=== PATIENT | female | born 1970 | race Caucasian/White ===

== ENCOUNTER → 2018-08-13 13:29 | Outpatient (CLI) | payer OTHER, SELFPAY ==
[2018-08-17 08:43] LABS: HPV Reflexed? NOT INDICATED
== END ==
PROVIDERS: Visit Provider Obstetrics & Gynecology
DX: Z12.4 Encounter for screening for malignant neoplasm of cervix (principal)
CPT/HCPCS: 87624; 88175; G0145

== ENCOUNTER → 2018-10-01 07:17 | Outpatient (CLI) | payer OTHER, SELFPAY ==
--- NOTE | 2018-10-01 07:23 | BI_ITS ---
MAMMOGRAPHY - BILATERAL SCREENING REASON FOR EXAM: Female, 48 years old. Routine annual screening examination. PERTINENT HISTORY: Mother with breast cancer. TECHNIQUE: Digital bilateral breast franko (3D mammographic acquisition) in the CC and MLO projections. 2-D mediolateral oblique (MLO) and craniocaudad (CC) views of both breasts were obtained. CAD: Full Field Digital Mammography with Computer Added Detection was performed. COMPARISON: Comparison is made with prior mammogram dated March 24, 2015 and June 23, 2013. FINDINGS: Breast Composition: The breasts are heterogeneously dense, which may obscure small masses. There is a 1.6 cm x 1.2 cm well-defined nodular density in the upper deep lateral portion right breast. This has increased in size as compared to prior study. Correlation with ultrasound is recommended. No other significant abnormalities are identified. BI/SCREENING MAMM (CAD), BILAT IMPRESSION: Increased size of the nodular density in the upper outer quadrant of the right breast as described. Correlation with ultrasound is recommended. ASSESSMENT CATEGORY: BIRADS Category 0: Incomplete. Need additional imaging evaluation. A letter regarding these results will be sent to the patient by the facility within 30 days. Approximately 10% of breast cancers are not detected by mammography. A normal mammogram should not delay biopsy of a clinically suspicious abnormality. [id number] Electronically Signed: Ted Membreno MD at 10:32 EST , Service support ,
== END ==
PROVIDERS: Family Provider Nurse Practitioner Family; PCP Nurse Practitioner Family; Visit Provider Obstetrics & Gynecology
DX: Z12.31 Encounter for screening mammogram for malignant neoplasm of breast (principal)
CPT/HCPCS: 77063; 77067

== ENCOUNTER → 2018-10-02 09:55 | Outpatient (CLI) | payer OTHER, SELFPAY ==
--- NOTE | 2018-10-02 09:58 | US_ITS ---
STUDY: ULTRASOUND BREAST - RIGHT REASON FOR EXAM: Female, 48 years old. Abnormal screening mammogram. TECHNIQUE: Axial and longitudinal images of the RIGHT breast were performed with a high resolution ultrasound transducer. COMPARISON: Comparison is made with prior mammogram dated October 01, 2018 and prior ultrasound the right breast dated March 30, 2015. FINDINGS: RIGHT Breast: There is a 1.5 cm x 1.5 cm x 1.1 cm cyst at the 11:00 position of the breast at 3 cm from the nipple. US/Breast Limited Unilateral IMPRESSION: The mammographic abnormality corresponds to a 1.5 cm x 1.5 cm x 1.1 cm cyst. ASSESSMENT CATEGORY: BIRADS Category 2: Benign. A letter regarding these results will be sent to the patient by the facility within 30 days. Electronically Signed: Ted Membreno MD at 12:23 EST , Service support ,
== END ==
PROVIDERS: Family Provider Nurse Practitioner Family; PCP Nurse Practitioner Family; Visit Provider Obstetrics & Gynecology
DX: R92.8 Other abnormal and inconclusive findings on diagnostic imaging of breast (principal)
CPT/HCPCS: 76642

== ENCOUNTER → 2022-01-16 | Outpatient (CLI) | payer OTHER, SELFPAY ==
[2022-01-16 15:30] LABS: Estradiol 81.5 pg/mL; Follicle Stimulating Hormone 7.4 mIU/mL; Luteinizing Hormone 2.5 mIU/mL; T4 Free Direct 1.01 ng/dL (0.76-1.46); Thyroid Stim Hormone (TSH) 3.56 uIU/mL (0.358-3.74)
[2022-01-22 16:48] LABS: HPV APTIMA, High Risk Negative (Negative)
== END | disposition home or self-care (01) ==
LOC: WOBLAB 13:35
PROVIDERS: PCP Nurse Practitioner Family; Visit Provider Obstetrics & Gynecology
DX: Z12.4 Encounter for screening for malignant neoplasm of cervix (principal); N93.9 Abnormal uterine and vaginal bleeding, unspecified
CPT/HCPCS: 36415; 82670; 83001; 83002; 84439; 84443; 87624; 88175; G0145

== ENCOUNTER → 2022-02-02 | Outpatient (CLI) | payer OTHER, SELFPAY ==
--- NOTE | 2022-02-02 07:19 | BI_ITS ---
MAMMOGRAPHY - BILATERAL SCREENING REASON FOR EXAM: Female, 51 years old. Routine annual screening examination. PERTINENT HISTORY: Mother with breast cancer. TECHNIQUE: Digital bilateral breast melissa (3D mammographic acquisition) in the CC and MLO projections. 2-D mediolateral oblique (MLO) and craniocaudad (CC) views of both breasts were obtained. CAD: Full Field Digital Mammography with Computer Added Detection was performed. COMPARISON: Screening mammogram from 10/01/2018, 03/24/2015, 06/23/2013, 01/28/2012. Right breast diagnostic ultrasound from 10/02/2018, 03/30/2015. FINDINGS: Breast Composition: The breasts are heterogeneously dense, which may obscure small masses. There are no dominant masses or suspicious calcifications. The previously seen right upper lateral breast mass characterized as a cyst on the diagnostic ultrasound from 10/02/2018 has resolved. No other significant abnormalities are identified. BI/SCRN MAMM (CAD)W/MELISSA BILAT IMPRESSION: Negative screening mammogram. Yearly followup mammogram recommended. (A) ASSESSMENT CATEGORY: BIRADS Category 1: Negative. A letter regarding these results will be sent to the patient by the facility within 30 days. Approximately 10% of breast cancers are not detected by mammography. A normal mammogram should not delay biopsy of a clinically suspicious abnormality. [id number] Electronically Signed: Bharat Zaldivar, at 12:35 EDT ,
== END | disposition home or self-care (01) ==
LOC: OPBI 07:17
PROVIDERS: PCP Nurse Practitioner Family; Referring Provider Obstetrics & Gynecology; Visit Provider Obstetrics & Gynecology
DX: Z12.31 Encounter for screening mammogram for malignant neoplasm of breast (principal)
CPT/HCPCS: 77063; 77067

== ENCOUNTER → 2022-02-06 | Outpatient (CLI) | payer OTHER, SELFPAY ==
[2022-02-08 22:07] LABS: Chlamydia By Nucleic Acid AMP Negative (Negative)
[2022-02-08 22:13] LABS: Gonococcus By Nucleic Acid AMP Negative (Negative)
== END | disposition home or self-care (01) ==
LOC: LABSPEC 16:39
PROVIDERS: PCP Nurse Practitioner Family; Visit Provider Obstetrics & Gynecology
DX: Z11.3 Encounter for screening for infections with a predominantly sexual mode of transmission (principal)
CPT/HCPCS: 87491; 87591

== ENCOUNTER → 2023-04-26 | Outpatient (CLI) | payer OTHER, SELFPAY ==
[2023-04-26 10:14] LABS: Hematocrit 40.4 % (37-47); Hemoglobin 13.7 g/dL (12.0-15.0); Mean Corp Hgb Conc 33.9 g/dL (32-36); Mean Corpuscular Hgb 29.7 pg (27.0-32.0); Mean Corpuscular Volume 87.4 fL (81-99); Platelet Count 277 K/mm3 (150-450); RBC Distribution Width CV 12.5 % (11.6-14.6); RBC Distribution Width SD 39.8 fl (35.1-43.9); Red Blood Count 4.62 M/mm3 (4.2-5.4)
[2023-04-26 11:07] LABS: AST(SGOT) 14 U/L (15-37); Alanine Aminotransfer ALT/SGPT 17 U/L (13-56); Alkaline Phosphatase 43 U/L (45-117); Anion Gap 8 (5-15); BUN 17 mg/dL (7-18); BUN/Creat Ratio 24.6 RATIO (10-20); Calcium,Total 8.2 mg/dL (8.5-10.1); Chloride 104 mmol/L (98-107); Creatinine, Serum 0.69 mg/dL (0.55-1.02); EST Glomerular Filtration Rate 94 mL/min (>60); Est Glom Filt Rate - Afr Amer 114 mL/min (>60); Globulin 3.1 g/dL (2.2-4.2); Glucose 86 mg/dL (74-106); Potassium 3.5 mmol/L (3.5-5.1); Protein, Total 6.1 g/dL (6.4-8.2); Sodium Level 136 mmol/L (136-145)
[2023-04-30 08:07] LABS: Endomysial Antibody IgA Negative (Negative); Immunoglobulin A 185 mg/dL (87-352); t-Transglutaminase IgA <2 U/mL (0-3)
== END | disposition home or self-care (01) ==
LOC: LAB 09:28
PROVIDERS: PCP Nurse Practitioner Family; Referring Provider Nurse Practitioner Family; Visit Provider Nurse Practitioner Family
DX: K52.9 Noninfective gastroenteritis and colitis, unspecified (principal); R14.0 Abdominal distension (gaseous)
CPT/HCPCS: 36415; 80053; 82784; 83516; 85027; 86255; 87329; 87493; 87506

== ENCOUNTER 2023-05-03 08:16 | Emergency (ER) | payer OTHER, SELFPAY ==
[2023-05-03 08:17] VITALS: BP 107/65; PULSE 112; RESP 16; TEMP 37.2; O2SAT 98; BMI 21.7
--- NOTE | 2023-05-03 08:54 | ED.VIS.GI ---
HPI HPI - GI History of Present Illness Chief Complaint: Abd Pain Informant: patient Abdominal Pain/Flank Pain Onset: Days (2) Context: Gradual Onset Timing: Continuous Quality: Aching, Cramping and Sharp Location: Diffuse Worsened by: Nothing Relieved by: Nothing Nausea/Vomiting/Emesis GI Symptom: Positive for Nausea and Vomiting Quality: Positive for Nonbilious; Negative for Blood streaks, Coffee ground or Hematemesis Diarrhea/Melena/Hematochezia GI Symptom: Positive for Diarrhea and Hematochezia Onset: Yesterday Stool Quality: Positive for Loose and BRB per rectum Associated Symptoms Associated Symptoms: Negative for Dysuria Narrative Narrative: Patient presents with abdominal pain that has been waxing and waning over the past couple weeks but has been relatively constant for the past 2 days. Patient states it has come on gradually. Patient states it has been constant for the past 2 days. Patient describes her pain as cramping, aching, and sharp. Patient states her pain is diffuse across her abdomen. Patient states nothing makes it better and nothing makes it worse. Patient states that she noted some blood in her stools last night. Patient states she has had some mucousy diarrhea prior to that. Patient states she feels some pressure in her rectal area. Patient does admit to some nausea and vomiting. Patient denies any hematemesis or coffee-ground emesis. Patient admits to some mild dysuria. Patient denies any fevers or chills. [facility] Medical History (Updated 05/03/23 @ 12:[address] Jorgito Contreras DO) Melanoma Home Medications ciprofloxacin HCl 500 mg tablet 500 mg PO BID #20 TABLETS 05/03/23 [Rx Last Taken Unknown] metronidazole 500 mg tablet 500 mg PO Q6H #40 tabs 05/03/23 [Rx Last Taken Unknown] Allergy/AdvReac Type Severity Reaction Status Date / Time sulfamethoxazole Allergy Severe Swelling Verified 05/03/23 08:17 [From Bactrim] trimethoprim [From Bactrim] Allergy Severe Swelling Verified 05/03/23 08:17 Surgical History (Updated 05/03/23 @ 08:[address] Jorgito Contreras DO) Hx of section Hx of melanoma excision Social History (Updated 05/03/23 @ 08:[address] Jorgito Contreras DO) Smoking Status: Current every day smoker tobacco type: cigarettes Smoking packs per day: 0.5 Smoking cigarettes per day: 10.0 ROS ROS ED Constitutional Constitutional ED: Denies chills or fever(s) Eyes Eyes: Denies blurry vision or change in vision ENT ENT ED: Denies rhinorrhea or sore throat Cardiovascular Cardiovascular: Denies chest pain or palpitations Respiratory/Chest Respiratory/Chest: Denies cough or dyspnea Gastrointestinal Gastrointestinal: Reports abdominal pain, diarrhea, nausea and vomiting Genitourinary Genitourinary ED: Reports dysuria; Denies hematuria Musculoskeletal Musculoskeletal: Reports back pain; Denies neck pain Integumentary Denies abscess or rash Neurologic Neurologic: Reports headache(s) and weakness Allergic/Immunologic Allergic/Immunologic ED: Denies mouth swelling or urticaria EXAM Physical Exam Const Vital Signs: 05/03/23 08:17 05/03/23 10:40 Temperature 98.9 F Temperature Source Temporal Pulse Rate 112 H 94 Respiratory Rate 16 16 Blood Pressure 107/65 92/68 Blood Pressure Mean 79 76 Pulse Ox 98 98 Oxygen Delivery Method Room Air Room Air Positive well nourished and well developed General Appearance ED: well developed and NAD HEENT Reports moist mucous membranes Neck supple and no JVD Resp normal respiratory effort and clear to auscultation bilaterally Cardio regular rhythm and no murmurs Rate: tachycardic GI non-distended Auscultation: hyperactive bowel sounds Palpation: soft and tender epigastric, LLQ, RLQ, LUQ, RUQ, periumbilical and suprapubic; Negative for guarding or rebound tenderness present Extremity normal to inspection General Extremety ED: Negative for edema or tenderness General Extremity: Negative for edema Neuro oriented x3, CN's II-XII intact bilaterally and no sensory deficits noted Sensorium / Orientation: alert Motor Exam: strength 5/5 throughout Psych mental status grossly normal Skin no rashes or lesions noted MDM MDM MDM Narrative Medical decision making narrative: Differential diagnosis includes bowel obstruction, perforation, hemorrhoids, IBS, gastroenteritis, colon cancer, urinary tract infection, pyelonephritis, and pancreatitis. CBC will be obtained to assess for leukocytosis and anemia. Comprehensive metabolic profile will be obtained to assess for hepatic function, renal function, and electrolyte abnormality. Lipase will be obtained to assess for pancreatitis. CT scan of the abdomen pelvis will be obtained to assess for bowel obstruction, perforation, and mass. Lab Data Attestation: I reviewed the patient's lab results. Lab results narrative: CBC was reviewed. There is a mild leukocytosis of 11.9. The remainder is within normal limits. Comprehensive metabolic profile was reviewed. Potassium was low at 3.0. The remainder was within normal limits. Lipase was reviewed and was normal at 25. Urinalysis was reviewed. There is no evidence of urinary tract infection or hematuria. Urine ketones were 150. Labs: Laboratory Results - last 24 hr 05/03/23 05/03/23 08:34 10:21 WBC 11.9 H RBC 5.00 Hgb 14.6 Hct 42.5 MCV 85.0 MCH 29.2 MCHC 34.4 RDW Std Deviation 39.8 RDW Coeff of Audrey 13.0 Plt Count 377 MPV 9.0 Immature Gran % (Auto) 0.500 Neut % (Auto) 75.8 H Lymph % (Auto) 11.4 L [place] % (Auto) 11.8 H Eos % (Auto) 0.1 Baso % (Auto) 0.4 Absolute Neuts (auto) 9.0 H Absolute Lymphs (auto) 1.36 Nucleated RBC % 0 Sodium 140 Potassium 3.0 L Chloride 108 H Carbon Dioxide 26.0 Anion Gap 6 BUN 11 Creatinine 0.52 L Estim Creat Clear Calc 112.58 Est GFR (MDRD) Af Amer 159 Est GFR (MDRD) Non-Af 131 BUN/Creatinine Ratio 21.2 H Glucose 105 Calcium 8.1 L Total Bilirubin 0.40 AST 13 L ALT 18 Alkaline Phosphatase 53 Total Protein 6.0 L Albumin 2.5 L Globulin 3.5 Albumin/Globulin Ratio 0.7 L Lipase 25 Urine Color Yellow Urine Clarity Clear Urine pH 6.0 Ur Specific [place] 1.015 Urine Protein 15 H Urine Glucose (UA) Normal Urine Ketones 150 A* Urine Occult Blood Negative Urine Nitrite Negative Urine Bilirubin Negative Urine Urobilinogen Normal Ur Leukocyte Esterase 25 H Urine RBC 0 SEEN Urine WBC 0-5 SEEN Ur Squamous Epith Cells 0-5 SEEN Urine Bacteria RARE Urine Mucus 0 SEEN Radiography Diagnostic Testing: Clinical Impression(s) from Imaging Studies Abdomen/Pelvis CT 05/03/23 09:02 IMPRESSION: Findings suggestive of colitis involving the left hemicolon. Minimal amount of free fluid in the right paracolic gutter. Hepatic cysts. Right renal cyst. IUD is seen within the fibroid uterus. Electronically Signed: Ted Membreno MD at 11:19 EDT , CT scan of the abdomen pelvis was obtained. There are findings suggestive of colitis of the transverse and descending colon. There is no evidence of obstruction or perforation. There are no other acute findings. This was interpreted by the radiologist and was also independently reviewed by myself. Treatment and Re-Evaluation :: Patient was given IV fluids, morphine, and Zofran. Patient was given a dose of potassium here. Patient is feeling better on reevaluation. Patient was advised of her findings. Patient was given a dose of Cipro and Flagyl here. Patient was given prescriptions for Cipro and Flagyl. Patient was instructed to follow-up with her primary care physician in 5 to 7 days. Patient was also instructed to follow-up with gastroenterology. Patient understood and was agreeable with the plan. All questions were answered. Discharge Plan Triage Chief Complaint: Abd Pain ED Provider: Jorgito Contreras Dx/Rx/DC Orders Clinical Impression: Colitis, Abdominal pain Instructions: ED Understanding Colitis Prescriptions: New metronidazole [metronidazole] 500 mg tablet 500 mg PO Q6H Qty: 40 0RF ciprofloxacin HCl [ciprofloxacin HCl] 500 mg tablet 500 mg PO BID Qty: 20 0RF Primary Care Provider: Blake Carter NP Referrals: Blake Carter BRUSHER WARP, [facility] WARP-[facility] [Primary Care Provider] - 5-7 Days Activity Restrictions/Additional Instructions: Do not drink any alcohol while taking Flagyl (metronidazole). Disposition Disposition: Home, Self Care
--- NOTE | 2023-05-03 09:02 | CT_ITS ---
STUDY: CT ABDOMEN AND PELVIS WITH CONTRAST REASON FOR EXAM: Female, 52 years old. Abdominal pain. Bloody stool. Abdominal cramps. RADIATION DOSAGE (If Supplied By Facility): CTDIvol = ( 8.18 ) mGy, DLP = ( 481.90 ) mGycm TECHNIQUE: Transaxial images were obtained from the dome of the diaphragm to the symphysis pubis with oral contrast. Oral and amp; IV Gastrografin and amp; 100mL Isovue-300 was administered. Sagittal and coronal images were reconstructed. Individualized dose optimization techniques were used for this CT. COMPARISON: None. FINDINGS: The visualized lung bases are unremarkable. The visualized portions of the heart are within normal limits. Scattered cysts are seen in the right lobe of the liver. The largest cyst measures 1.3 cm x 1.3 cm. Calcified granuloma in the dome of the right lobe of the liver. Normal gallbladder and extrahepatic biliary system. There are multiple benign calcified granulomata of the spleen. Normal pancreas. Normal bilateral adrenal glands. There is a 2.8 cm x 3.1 cm cyst in the upper posterior aspect of the right kidney. Tiny cyst in the midportion of the left kidney. Normal left kidney. Normal visualized stomach. Normal small intestine. Diffuse circumferential wall thickening of the colon extending from the distal portion of the transverse colon down to the rectum. Colitis should be ruled out. Minimal amount of fluid is seen in the right paracolic gutter. The appendix is visualized and appears normal. There is scattered atherosclerotic calcification of the abdominal aorta, without a demonstrated aneurysm. Normal inferior vena cava. Normal retroperitoneum. Normal urinary bladder. IUD is seen within the uterus. Fibroid uterus. Normal abdominal wall. Dextroscoliosis. CT/Abdomen/Pelvis WITH Contrast IMPRESSION: Findings suggestive of colitis involving the left hemicolon. Minimal amount of free fluid in the right paracolic gutter. Hepatic cysts. Right renal cyst. IUD is seen within the fibroid uterus. Electronically Signed: Ted Membreno MD at 11:19 EDT ,
[2023-05-03 09:14] LABS: Absolute Lymphocyte Count 1.36 X10^3/uL (0.83-4.51); Basophil# 0.05 X10^3/uL; Basophil% 0.4 % (0-1); Eosinophil# 0.01 X10^3/uL; Eosinophils% 0.1 % (0-5); Hematocrit 42.5 % (37-47); Hemoglobin 14.6 g/dL (12.0-15.0); Lymphocyte # 1.36 X10^3/ul (0.83-4.51); Lymphocyte % 11.4 % (19-41); Mean Corp Hgb Conc 34.4 g/dL (32-36); Mean Corpuscular Hgb 29.2 pg (27.0-32.0); Monocyte# 1.41 X10^3/uL; Monocyte% 11.8 % (0-10); NRBC Flagged by Analyzer 0 % (0-5); Neutrophil # 9.03 X10^3/uL (2.7-7.7); Neutrophil % 75.8 % (47-70); Platelet Count 377 K/mm3 (150-450); RBC Distribution Width SD 39.8 fl (35.1-43.9); White Blood Count 11.9 K/mm3 (4.4-11.0)
[2023-05-03] MEDS: Ondansetron 4 MG/2 ML Vial IV (09:18)
[2023-05-03] MEDS: 0.9% Normal Saline (1000mL) 1,000 ML 1000 ML IV (09:19)
[2023-05-03] MEDS: Morphine 4 MG/ML Syringe IV (09:19)
[2023-05-03 09:28] LABS: ALB/GLOB Ratio 0.7 RATIO (0.9-2.4); AST(SGOT) 13 U/L (15-37); Alanine Aminotransfer ALT/SGPT 18 U/L (13-56); Albumin, Serum 2.5 g/dL (3.2-5.0); Alkaline Phosphatase 53 U/L (45-117); Anion Gap 6 (5-15); BUN 11 mg/dL (7-18); BUN/Creat Ratio 21.2 RATIO (10-20); Calcium,Total 8.1 mg/dL (8.5-10.1); Chloride 108 mmol/L (98-107); Creatinine, Serum 0.52 mg/dL (0.55-1.02); EST Glomerular Filtration Rate 131 mL/min (>60); Est Glom Filt Rate - Afr Amer 159 mL/min (>60); Estimated Creatinine Clearance 112.58 ml/min; Globulin 3.5 g/dL (2.2-4.2); Glucose 105 mg/dL (74-106); Lipase 25 U/L (13-75); Sodium Level 140 mmol/L (136-145)
[2023-05-03] MEDS: Potassium Chloride Oral Tablet 20 MEQ 40 MEQ PO (09:43)
[2023-05-03 10:28] LABS: Mucous, Urine 0 SEEN /hpf (<or=2+); Red Blood Cells-Urine 0 SEEN /hpf (0-5)
[2023-05-03 10:29] LABS: Color, Urine Yellow (Yellow); Glucose, Dipstick Normal (Normal); Leukocyte Esterase-Dipstick 25 /ul (Negative); Nitrite-Dipstick Negative (Negative); Occult Blood-Urine Negative /ul (Negative); Protein-Dipstick 15 mg/dl (Negative); Specific Gravity, Urine 1.015 (1.002-1.030); Urine Bilirubin Dipstick Negative (Negative); Urine Clarity Clear (Clear); Urine Urobilinogen Normal (Normal)
[2023-05-03 10:30] LABS: Ketone-Dipstick 150 mg/dl (Negative)
[2023-05-03 10:34] LABS: Squamous Epithelial Cells - UA 0-5 SEEN /hpf (5-10); White Blood Cells 0-5 SEEN /hpf (0-5)
[2023-05-03 10:35] LABS: Bacteria RARE /hpf (None Seen)
[2023-05-03 10:40] VITALS: BP 92/68; PULSE 94; RESP 16; O2SAT 98
[2023-05-03] MEDS: Ciprofloxacin 500 MG Tablet PO (12:50)
[2023-05-03] MEDS: metroNIDAZOLE 500 MG Tablet PO (12:50)
[2023-05-03 12:54] VITALS: RESP 18
== END 2023-05-03 12:58 | disposition home or self-care (01) ==
PROVIDERS: Emergency Provider Emergency Medicine; PCP Nurse Practitioner Family; Visit Provider Emergency Medicine
DX: K52.9 Noninfective gastroenteritis and colitis, unspecified (principal); F17.210 Nicotine dependence, cigarettes, uncomplicated; R11.0 Nausea
CPT/HCPCS: 74177; 80053; 81001; 83690; 85025; 96361; 96374; 96375; 99284; J7030; Q9967; A4216; J2405

== ENCOUNTER 2023-05-04 08:13 | Inpatient (IN) | payer OTHER, SELFPAY ==
[2023-05-04 08:14] VITALS: BP 99/76; PULSE 102; RESP 16; TEMP 36.2; O2SAT 99; BMI 21.6
--- NOTE | 2023-05-04 08:28 | EX.ED.DYSGE1 ---
HPI History of Present Illness Chief Complaint: Abd Pain Informant: patient Narrative Narrative: Patient returns secondary to increased and continued abdominal pain with diarrhea. Patient reported has had intermittent symptoms for the past 2 weeks but constant for the past 3 days. She was seen in the emergency room yesterday and diagnosed with colitis of the transverse and descending colon. She was discharged on Cipro and Flagyl. Patient reports that she was feeling well when she left here yesterday with pain control and hydration. She was able to eat a small bowl of white rice last night. She has not taken anything for pain. She had increased pain and increased blood in her stool since discharge. [facility] Medical History (Updated 05/04/23 @ 10:[address] Edna Lares MD) Colitis Melanoma Home Medications ciprofloxacin HCl 500 mg tablet 500 mg PO BID #20 TABLETS 05/03/23 [Rx Last Taken Unknown] metronidazole 500 mg tablet 500 mg PO Q6H #40 tabs 05/03/23 [Rx Last Taken Unknown] Allergy/AdvReac Type Severity Reaction Status Date / Time sulfamethoxazole Allergy Severe Swelling Verified 05/03/23 08:17 [From Bactrim] trimethoprim [From Bactrim] Allergy Severe Swelling Verified 05/03/23 08:17 Surgical History Hx of section Hx of melanoma excision Social History Smoking Status: Current every day smoker tobacco type: cigarettes ROS ROS ED Constitutional Constitutional ED: Reports chills, fever(s) and subjective Eyes Eyes: Denies discharge from eye(s) ENT ENT ED: Denies discharge from eye(s), rhinorrhea or sore throat Cardiovascular Cardiovascular: Denies chest pain or palpitations Respiratory/Chest Respiratory/Chest: Denies cough or dyspnea Gastrointestinal Gastrointestinal: Reports abdominal pain, diarrhea and nausea; Denies vomiting Musculoskeletal Musculoskeletal: Denies back pain or extremity pain Integumentary Denies Abrasions or rash Neurologic Neurologic: Denies headache(s) or weakness Psychiatric Psychiatric: Denies anxiety or depression Allergic/Immunologic Allergic/Immunologic ED: Denies lip swelling or urticaria EXAM Physical Exam Const Vital Signs: 05/04/23 08:14 Temperature 97.2 F L Temperature Source Temporal Pulse Rate 102 H Respiratory Rate 16 Blood Pressure 99/76 Blood Pressure Mean 83 Pulse Ox 99 Oxygen Delivery Method Room Air Positive well nourished and well developed General Appearance ED: well developed HEENT Reports normocephalic and head/scalp atraumatic Eyes PERRL and EOMs intact bilaterally Neck supple Chest Wall inspection of chest normal and palpation of chest normal Resp normal respiratory effort and clear to auscultation bilaterally Cardio regular rate and regular rhythm GI GI Narrative: Diffuse abdominal tenderness palpation. No rebound. Hypoactive bowel sounds. Palpation: soft Extremity normal to inspection Neuro oriented x3 and no sensory deficits noted Sensorium / Orientation: alert Motor Exam: strength 5/5 throughout Psych mental status grossly normal Skin no rashes or lesions noted MDM MDM MDM Narrative Medical decision making narrative: Patient's visit yesterday was reviewed. IV line established and patient given IV fluids. Lab work including lactic acid obtained to evaluate for leukocytosis, electrolyte derangement, lactic acidosis. Patient given fentanyl and Zofran for pain and nausea. History & Record Review Discussion w/independent historian: Patient and Family Additional record(s) reviewed:: Prior ED visit and Prior labs Lab Data Attestation: I reviewed the patient's lab results. Labs: Laboratory Results - last 24 hr 05/04/23 08:30 WBC 7.9 RBC 4.97 Hgb 14.5 Hct 42.7 MCV 85.9 MCH 29.2 MCHC 34.0 RDW Std Deviation 40.3 RDW Coeff of Audrey 13.1 Plt Count 337 MPV 8.4 Immature Gran % (Auto) 1.000 H Neut % (Auto) 66.3 Lymph % (Auto) 16.8 L [place] % (Auto) 14.6 H Eos % (Auto) 0.8 Baso % (Auto) 0.5 Absolute Neuts (auto) 5.2 Absolute Lymphs (auto) 1.33 Nucleated RBC % 0 Sodium 138 Potassium 3.3 L Chloride 106 Carbon Dioxide 26.0 Anion Gap 6 BUN 9 Creatinine 0.59 Estim Creat Clear Calc 99.23 Est GFR (MDRD) Af Amer 138 Est GFR (MDRD) Non-Af 114 BUN/Creatinine Ratio 15.3 Glucose 103 Lactic Acid 1.3 Calcium 8.0 L Total Bilirubin 0.40 Direct Bilirubin 0.12 AST 17 ALT 17 Alkaline Phosphatase 51 Total Protein 5.7 L Albumin 2.4 L Globulin 3.3 Treatment and Re-Evaluation :: CBC was a white count of 7.9 with normal neutrophil count. Yesterday her white count was in the 11 range. Chemistry studies significant only for potassium of 3.3. Yesterday potassium was 3.0. Renal function is normal. LFTs are unremarkable and lactic acid is normal at 1.3. On repeat evaluation patient reports some improvement. Abdomen is soft with continued diffuse tenderness. No rebound noted. states he does not feel the patient can be treated at home given her pain and ongoing symptoms. I spoke with Dr. Smith, on-call for GI. He states that we need to do more stool studies. It does appear that she had enteric pathogens and C. difficile done on April 26 that were negative. Because there is small amount of free fluid noted in the right pericolic gutter on the CT yesterday he states that this indicates a possible small microperforation. In light of this she does need to be on antibiotics. He agrees with continuing Cipro and Flagyl IV. He recommends Bentyl and pain meds for abdominal cramping and pain. I will discuss with hospitalist regarding admission for further hydration. Discharge Plan Triage Chief Complaint: Abd Pain ED Provider: Edna Lares Dx/Rx/DC Orders Clinical Impression: Colitis, Abdominal pain Prescriptions: No Action metronidazole [metronidazole] 500 mg tablet 500 mg PO Q6H Qty: 40 0RF ciprofloxacin HCl [ciprofloxacin HCl] 500 mg tablet 500 mg PO BID Qty: 20 0RF Primary Care Provider: Blake Carter NP Referrals: Blake Carter NP, [employer]ICE MACHINERY OR [employer]MENT INST[employer]ER-[facility] [Primary Care Provider] - Disposition Disposition: Acute Care Hospital [facility]
[2023-05-04 08:35] LABS: Absolute Lymphocyte Count 1.33 X10^3/uL (0.83-4.51); Absolute Neutrophil Count 5.2 X10^3/uL (2.0-7.7); Basophil# 0.04 X10^3/uL; Basophil% 0.5 % (0-1); Eosinophil# 0.06 X10^3/uL; Eosinophils% 0.8 % (0-5); Hematocrit 42.7 % (37-47); Hemoglobin 14.5 g/dL (12.0-15.0); Lymphocyte # 1.33 X10^3/ul (0.83-4.51); Lymphocyte % 16.8 % (19-41); Mean Corpuscular Hgb 29.2 pg (27.0-32.0); Mean Corpuscular Volume 85.9 fL (81-99); Mean Platelet Vol. 8.4 fl (6.2-12.0); Monocyte# 1.15 X10^3/uL; Monocyte% 14.6 % (0-10); NRBC Flagged by Analyzer 0 % (0-5); Neutrophil # 5.24 X10^3/uL (2.7-7.7); Neutrophil % 66.3 % (47-70); Platelet Count 337 K/mm3 (150-450); RBC Distribution Width CV 13.1 % (11.6-14.6); RBC Distribution Width SD 40.3 fl (35.1-43.9); Red Blood Count 4.97 M/mm3 (4.2-5.4); White Blood Count 7.9 K/mm3 (4.4-11.0)
[2023-05-04] MEDS: Ondansetron 4 MG/2 ML Vial IV ×2 (08:46→17:13)
[2023-05-04] MEDS: fentaNYL 100 MCG/2 ML Ampul 25 MCG IV ×2 (08:46→10:34)
[2023-05-04] MEDS: 0.9% Normal Saline (1000mL) 1,000 ML 1000 ML IV (08:47)
[2023-05-04 08:55] LABS: AST(SGOT) 17 U/L (15-37); Alanine Aminotransfer ALT/SGPT 17 U/L (13-56); Albumin, Serum 2.4 g/dL (3.2-5.0); Alkaline Phosphatase 51 U/L (45-117); Anion Gap 6 (5-15); BUN 9 mg/dL (7-18); BUN/Creat Ratio 15.3 RATIO (10-20); Bilirubin, Direct 0.12 mg/dL (0.00-0.30); Chloride 106 mmol/L (98-107); Creatinine, Serum 0.59 mg/dL (0.55-1.02); EST Glomerular Filtration Rate 114 mL/min (>60); Est Glom Filt Rate - Afr Amer 138 mL/min (>60); Estimated Creatinine Clearance 99.23 ml/min; Globulin 3.3 g/dL (2.2-4.2); Glucose 103 mg/dL (74-106); Potassium 3.3 mmol/L (3.5-5.1); Protein, Total 5.7 g/dL (6.4-8.2); Sodium Level 138 mmol/L (136-145)
[2023-05-04 09:39] LABS: Lactic Acid 1.3 mmol/L (0.4-1.9)
[2023-05-04] MEDS: Dicyclomine 20 MG/2 ML Vial IM (10:35)
[2023-05-04] MEDS: Ciprofloxacin 400 MG/200 ML BAG 200 MG IV ×2 (10:43→22:03)
[2023-05-04 10:46] VITALS: BP 105/67; PULSE 87; RESP 20; O2SAT 99
--- NOTE | 2023-05-04 10:56 | PCM.HP.STD ---
HPI - General General Date of Admission: 05/04/23 Date of Service: 05/04/23 Chief Complaint: Abdominal pain for about 2 weeks along with bloody stool, nausea and vomiting HPI Narrative MICHAEL ESPARZA, is a 52 F came to ED for abdominal pain along with diarrhea for past 2 weeks. Initially it was intermittent predominantly in the left side and lower part of her abdomen but it got more intense, constant, 10/10 intensity for last 3 days. She came to ED yesterday and diagnosed colitis of transverse and descending colon and was sent home on oral Cipro and Flagyl but she came back because of vomiting, debilitating severe pain in abdomen and dehydration. She is also having a small amount of rectal blood mixed with mucus and smaller stool. She was tested negative for C. difficile about 1 week ago. Denies fever or chills. Labs reviewed and discussed in assessment plan. Denies prior history of abdominal pain or GI tract related diagnosis or chronic abdominal condition. Her mother has history of IBS, breast cancer but denies history of colon cancer. She herself has history of melanoma for which she had excision. She never had EGD or colonoscopy or follows GI insolvency consultant [facility] Medical History Cancer Colitis Melanoma Home Medications ciprofloxacin HCl 500 mg tablet 500 mg PO BID #20 TABLETS 05/03/23 [Rx Last Taken 05/03/23] metronidazole 500 mg tablet 500 mg PO Q6H #40 tabs 05/03/23 [Rx Last Taken 05/03/23] diphenoxylate-atropine 2.5 mg-0.025 mg tablet 1 tab PO Q12H PRN diarrhea 05/04/23 [History Last Taken 05/03/23] Allergy/AdvReac Type Severity Reaction Status Date / Time sulfamethoxazole Allergy Severe Swelling Verified 05/03/23 08:17 [From Bactrim] trimethoprim [From Bactrim] Allergy Severe Swelling Verified 05/03/23 08:17 Surgical History Hx of section Hx of melanoma excision Social History Smoking Status: Current every day smoker tobacco type: cigarettes ROS ROS Narrative Constitutional: Reports fatigue and weakness. In severe pain. No fever. HEENT: Feels thirsty and dehydrated. Reports systems reviewed and no addt'l complaints, except as documented Respiratory/Chest: No acute shortness of breath or respiratory distress or wheezing. CVS: No chest pain pressure or tightness. Gastrointestinal: Denies coffee ground emesis, hematemesis but nausea vomiting. Rest as described in HPI. Genitourinary: Denies burning urination or new urinary tract symptoms Musculoskeletal: Denies acute joint pain or limited range of motion. No acute injury Neurologic: Denies seizure-like symptoms. No acute or strokelike symptoms. skin: No ulcer. No rash. History of melanoma excision. Endocrinology: Reports systems reviewed and no addt'l complaints, except as documented Hematologic/Lymphatic: Reports systems reviewed and no addt'l complaints, except as documented Rest 14 ROS are negative except as mentioned in HPI Vital Signs Vital Signs Vital Signs: 05/04/23 08:14 05/04/23 10:46 Temperature 97.2 F L Temperature Source Temporal Pulse Rate 102 H 87 Respiratory Rate 16 20 H Blood Pressure 99/76 105/67 Blood Pressure Mean 83 79 Pulse Ox 99 99 Oxygen Delivery Method Room Air Room Air Weight Weight: 130 lb Body Mass Index (BMI) 21.6 Physical Exam Narrative General: Alert, Oriented x3, Cooperative HEENT: Atraumatic, PERRLA, EOMI, Normocephalic Oral: Oral mucosa very dry. No Gingival or Mucosal Lesions/ Ulcerations Neck: Supple, No JVD, Negative Carotid Bruits Lungs: Air entry diminished in bilateral lung bases. No crepitation/rhonchi Cardiovascular: Mild sinus tachycardia, Normal S1, Normal S2, systolic murmur right second ICS. Abdomen: Bowel Sounds hyperactive, Soft, very tender predominantly in the left upper and lower quadrant and hypogastrium. No guarding/rigidity or peritoneal signs. : No renal angle tenderness. No suprapubic tenderness. Extremities: No edema, Capillary Refill Less than 3 Seconds Skin: No rashes, No breakdown Musculoskeletal: No Tenderness to Palpation of Joints or Extremities. ROM full and intact. Neurological: Cranial nerves II-XII grossly intact, DTR 2+/4. No acute focal neurological deficit. Psych/Mental Status: Flat affect. Results Lab / Micro Data 05/04/23 08:30 05/04/23 08:30 Labs: Laboratory Results - last 24 hr 05/04/23 08:30: WBC 7.9, RBC 4.97, Hgb 14.5, Hct 42.7, MCV 85.9, MCH 29.2, MCHC 34.0, RDW Std Deviation 40.3, RDW Coeff of Audrey 13.1, Plt Count 337, MPV 8.4, Immature Gran % (Auto) 1.000 H, Neut % (Auto) 66.3, Lymph % (Auto) 16.8 L, [place] % (Auto) 14.6 H, Eos % (Auto) 0.8, Baso % (Auto) 0.5, Absolute Neuts (auto) 5.2, Absolute Lymphs (auto) 1.33, Nucleated RBC % 0, Sodium 138, Potassium 3.3 L, Chloride 106, Carbon Dioxide 26.0, Anion Gap 6, BUN 9, Creatinine 0.59, Estim Creat Clear Calc 99.23, Est GFR (MDRD) Af Amer 138, Est GFR (MDRD) Non-Af 114, BUN/Creatinine Ratio 15.3, Glucose 103, Lactic Acid 1.3, Calcium 8.0 L, Total Bilirubin 0.40, Direct Bilirubin 0.12, AST 17, ALT 17, Alkaline Phosphatase 51, Total Protein 5.7 L, Albumin 2.4 L, Globulin 3.3 Assessment & Plan Assessment/Plan (1) Colitis: PLAN: Plan This is 52-year-old female is being admitted for 2 weeks of severe abdominal pain and rectal bleed consistent with colitis 1. Acute left-sided/transverse, DC, sigmoid up to rectum colitis: Exact etiology unclear. Patient is being admitted on MedSur floor. IV fluid resuscitation initially with normal saline and then Ringer lactate. IV Cipro and Flagyl ordered. Stool for enteric bacteriology panel and C. difficile ordered. ED physician discussed with Dr. Smith and I agree with the plan. CT abdomen usually reviewed and shows small right paracolic gutter fluid may be due to microperforation. CT does not report microperforation but diffuse thickening of colon from transverse colon to rectum. Supportive treatment for nausea vomiting and oxycodone, Bentyl and IV morphine abdominal pain. Lactic acid normal. 2. Chronic low blood pressure but does not meet diagnosis of hypotension: Usually patient blood pressure is in 100s or high 90s. Patient denies any dizziness lightheadedness or vertigo. She states her blood pressure has always been low. Continue IV fluid support and orthostatic blood pressure tomorrow AM. 3. History of melanoma excision VTE prophylaxis: Pharmacological prophylaxis is contraindicated because of rectal bleed. Bilateral SCDs CODE STATUS full code. Discussed with the family. Living will/advanced directive/end of life care: Patient does not have living will or advanced directive. After discussion of benefits/risks procedures involved with full code, DNR CC arrest and DNR CC, the patient and her opted for full code. Patient does want artificial life support including intubation, tube feed, ventilator and/chest compression, central venous catheter, vasopressor and DC shock if needed Total time spent in [id number] encounter in discussion of advanced directive 17 minutes. Laboratory Results 05/04/23 08:30: WBC 7.9, RBC 4.97, Hgb 14.5, Hct 42.7, MCV 85.9, MCH 29.2, MCHC 34.0, RDW Std Deviation 40.3, RDW Coeff of Audrey 13.1, Plt Count 337, MPV 8.4, Immature Gran % (Auto) 1.000 H, Neut % (Auto) 66.3, Lymph % (Auto) 16.8 L, [place] % (Auto) 14.6 H, Eos % (Auto) 0.8, Baso % (Auto) 0.5, Absolute Neuts (auto) 5.2, Absolute Lymphs (auto) 1.33, Nucleated RBC % 0, Sodium 138, Potassium 3.3 L, Chloride 106, Carbon Dioxide 26.0, Anion Gap 6, BUN 9, Creatinine 0.59, Estim Creat Clear Calc 99.23, Est GFR (MDRD) Af Amer 138, Est GFR (MDRD) Non-Af 114, BUN/Creatinine Ratio 15.3, Glucose 103, Lactic Acid 1.3, Calcium 8.0 L, Magnesium 2.1, Total Bilirubin 0.40, Direct Bilirubin 0.12, AST 17, ALT 17, Alkaline Phosphatase 51, Total Protein 5.7 L, Albumin 2.4 L, Globulin 3.3 Charges/Coding Visit Charges Inpatient E&M: 77386 Init Hosp L3 Procedures Hospitalists Procedures: 43033 Advncd Care Plan 30 Min
[2023-05-04 11:07] VITALS: BP 94/67; PULSE 88; RESP 18; TEMP 36.8; O2SAT 98
[2023-05-04 11:14] LABS: Magnesium 2.1 mg/dL (1.6-2.6)
[2023-05-04 11:45] VITALS: BMI 22.7
[2023-05-04] MEDS: metroNIDAZOLE 500 MG/100 ML BAG 100 MG IV ×2 (12:08→21:03)
[2023-05-04] MEDS: 0.9% Normal Saline (1000mL) 1,000 ML 150 ML IV (12:11)
[2023-05-04 12:37] VITALS: BP 104/69; PULSE 85; RESP 18; TEMP 36.8; O2SAT 95
[2023-05-04 13:28] LABS: Internal QC Validated? YES +Cl - CLEAR BKGD; Pregnancy, Serum, hCG Quali. NEGATIVE Negative; Record Kit Lot#, Serum Preg. HCG0000667200
[2023-05-04] MEDS: Lactated Ringers 1,000 ML 150 ML IV ×2 (16:00→19:40)
[2023-05-04] MEDS: Potassium Chloride Oral Tablet 20 MEQ 40 MEQ PO (16:00)
[2023-05-04 16:03] VITALS: BP 97/61; PULSE 88; RESP 18; TEMP 36.8; O2SAT 95
[2023-05-04] MEDS: Morphine 2 MG/ML Syringe IV (17:13)
[2023-05-04] MEDS: Dicyclomine 10 MG Capsule PO (17:13)
[2023-05-04 20:52] VITALS: BP 93/58; PULSE 90; RESP 18; TEMP 36.8; O2SAT 93
[2023-05-04] MEDS: Acetaminophen 325 MG Tablet 650 MG PO (21:00)
[2023-05-05 02:50] VITALS: BP 91/67; PULSE 79; RESP 20; TEMP 37.1; O2SAT 99
[2023-05-05] MEDS: Acetaminophen 325 MG Tablet 650 MG PO (02:56)
[2023-05-05] MEDS: 0.9% Normal Saline (1000mL) 1,000 ML 100 ML IV (04:15)
[2023-05-05] MEDS: metroNIDAZOLE 500 MG/100 ML BAG 100 MG IV ×3 (05:44→21:33)
[2023-05-05 05:48] VITALS: BP 100/65; BP 91/57; BP 98/60; PULSE 80; PULSE 84; PULSE 91
[2023-05-05 06:26] LABS: Absolute Lymphocyte Count 1.34 X10^3/uL (0.83-4.51); Absolute Neutrophil Count 4.2 X10^3/uL (2.0-7.7); Basophil# 0.04 X10^3/uL; Basophil% 0.6 % (0-1); Eosinophil# 0.08 X10^3/uL; Eosinophils% 1.2 % (0-5); Hematocrit 33.4 % (37-47); Hemoglobin 10.9 g/dL (12.0-15.0); Lymphocyte # 1.34 X10^3/ul (0.83-4.51); Lymphocyte % 19.5 % (19-41); Mean Corp Hgb Conc 32.6 g/dL (32-36); Mean Corpuscular Hgb 28.7 pg (27.0-32.0); Mean Corpuscular Volume 87.9 fL (81-99); Mean Platelet Vol. 9.2 fl (6.2-12.0); Monocyte# 1.08 X10^3/uL; Monocyte% 15.7 % (0-10); NRBC Flagged by Analyzer 0 % (0-5); Neutrophil # 4.22 X10^3/uL (2.7-7.7); Neutrophil % 61.4 % (47-70); POSITIVE MORPHOLOGY YES; Platelet Count 287 K/mm3 (150-450); RBC Distribution Width CV 13.1 % (11.6-14.6); RBC Distribution Width SD 42.2 fl (35.1-43.9); White Blood Count 6.9 K/mm3 (4.4-11.0)
[2023-05-05 06:43] LABS: Differential Indicated SCAN CRITERIA MET
[2023-05-05 07:23] LABS: Anion Gap 3 (5-15); BUN 9 mg/dL (7-18); Calcium,Total 7.2 mg/dL (8.5-10.1); Chloride 111 mmol/L (98-107); Creatinine, Serum 0.38 mg/dL (0.55-1.02); EST Glomerular Filtration Rate 191 mL/min (>60); Est Glom Filt Rate - Afr Amer 231 mL/min (>60); Estimated Creatinine Clearance 154.06 ml/min; Glucose 94 mg/dL (74-106); Potassium 3.2 mmol/L (3.5-5.1); Sodium Level 138 mmol/L (136-145)
[2023-05-05] MEDS: Ondansetron 4 MG/2 ML Vial IV (07:51)
--- NOTE | 2023-05-05 07:55 | PN.HOSP_ITS ---
Reason for Visit Reason for Visit: Diagnoses Noninfective gastroenteritis and colitis, unspecified (05/04/23) Objective Data Objective Data Vital Signs: Vital Signs Temp Pulse Resp BP Pulse Ox O2 Del Method 98.7 F 80 20 H 91/57 L 99 Room Air 05/05/23 02:50 05/05/23 05:48 05/05/23 02:50 05/05/23 05:48 05/05/23 02:50 05/05/23 03:30 Oxygen Delivery Method Room Air Weight: 136 lb 10.986 oz Body Mass Index (BMI) 22.7 Intake & Output: Intake and Output for Last 24 Hours 05/03/23 05/04/23 05/05/23 23:59 23:59 23:59 Intake Total 3130.0 / 3130.0 1172.5 / 1172.5 Balance 3130.0 / 3130.0 1172.5 / 1172.5 Lab / Micro Data 05/05/23 05:13 05/05/23 05:13 Labs: Laboratory Results - last 24 hr 05/04/23 08:30: WBC 7.9, RBC 4.97, Hgb 14.5, Hct 42.7, MCV 85.9, MCH 29.2, MCHC 34.0, RDW Std Deviation 40.3, RDW Coeff of Audrey 13.1, Plt Count 337, MPV 8.4, Immature Gran % (Auto) 1.000 H, Neut % (Auto) 66.3, Lymph % (Auto) 16.8 L, [place] % (Auto) 14.6 H, Eos % (Auto) 0.8, Baso % (Auto) 0.5, Absolute Neuts (auto) 5.2, Absolute Lymphs (auto) 1.33, Nucleated RBC % 0, Sodium 138, Potassium 3.3 L, Chloride 106, Carbon Dioxide 26.0, Anion Gap 6, BUN 9, Creatinine 0.59, Estim Creat Clear Calc 99.23, Est GFR (MDRD) Af Amer 138, Est GFR (MDRD) Non-Af 114, BUN/Creatinine Ratio 15.3, Glucose 103, Lactic Acid 1.3, Calcium 8.0 L, Magnesium 2.1, Total Bilirubin 0.40, Direct Bilirubin 0.12, AST 17, ALT 17, Alkaline Phosphatase 51, Total Protein 5.7 L, Albumin 2.4 L, Globulin 3.3 05/04/23 12:58: Serum , Qual NEGATIVE 05/05/23 05:13: WBC 6.9, RBC 3.80 L, Hgb 10.9 L, Hct 33.4 L, MCV 87.9, MCH 28.7, MCHC 32.6, RDW Std Deviation 42.2, RDW Coeff of Audrey 13.1, Plt Count 287, MPV 9.2, Immature Gran % (Auto) 1.600 H, Neut % (Auto) 61.4, Lymph % (Auto) 19.5, [place] % (Auto) 15.7 H, Eos % (Auto) 1.2, Baso % (Auto) 0.6, Absolute Neuts (auto) 4.2, Absolute Lymphs (auto) 1.34, Nucleated RBC % 0, Differential Comment , Sodium 138, Potassium 3.2 L, Chloride 111 H, Carbon Dioxide 24.0, Anion Gap 3 L, BUN 9, Creatinine 0.38 L, Estim Creat Clear Calc 154.06, Est GFR (MDRD) Af Amer 231, Est GFR (MDRD) Non-Af 191, BUN/Creatinine Ratio 24.0 H, Glucose 94, Calcium 7.2 L Micro: Microbiology 05/04/23 16:30 Stool Stool Lactoferrin - Final 05/04/23 16:30 Stool C. 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 When I saw the patient she crying with pain but abdomen feels soft. She felt like contraction of /labor pain. No fever. I feel that patient has anxiety/panic attack. She further said she had diarrhea for few days to 1 week in January that has resolved. General: Alert, Oriented x3, Cooperative HEENT: Atraumatic, PERRLA, EOMI, Normocephalic Oral: Oral mucosa very dry. No Gingival or Mucosal Lesions/ Ulcerations Neck: Supple, No JVD, Negative Carotid Bruits Lungs: Air entry diminished in bilateral lung bases. No crepitation/rhonchi Cardiovascular: Mild sinus tachycardia, Normal S1, Normal S2, systolic murmur right second ICS. Abdomen: Bowel Sounds hyperactive, Soft, tender predominantly in the left upper and lower quadrant and hypogastrium. No guarding/rigidity or peritoneal signs. : No renal angle tenderness. No suprapubic tenderness. Extremities: No edema, Capillary Refill Less than 3 Seconds Skin: No rashes, No breakdown Musculoskeletal: No Tenderness to Palpation of Joints or Extremities. ROM full and intact. Neurological: Cranial nerves II-XII grossly intact, DTR 2+/4. No acute focal neurological deficit. Psych/Mental Status: Flat affect. Assessment & Plan Assessment/Plan (1) Colitis: PLAN: Plan This is 52-year-old female is being admitted for 2 weeks of severe abdominal pain and rectal bleed consistent with colitis 1. Acute left-sided/transverse, DC, sigmoid up to rectum colitis: Exact etiology unclear. Patient is being admitted on MedSur floor. IV fluid resuscitation initially with normal saline and then Ringer lactate. IV Cipro and Flagyl ordered. Stool for enteric bacteriology panel and C. difficile orde red. ED physician discussed with Dr. Smith and I agree with the plan. CT abdomen usually reviewed and shows small right paracolic gutter fluid may be due to microperforation. CT does not report microperforation but diffuse thickening of colon from transverse colon to rectum. Supportive treatment for nausea vomiting and oxycodone, Bentyl and IV morphine abdominal pain. Lactic acid normal. 05/05: Enteric bacteriology panel negative for Campylobacter, Salmonella, Shigella with Shiga toxin, Yersinia, vibrio, rotavirus and norovirus. WBC lactoferrin positive suggestive of inflammatory/infectious colitis. C. difficile PCR negative. Leukocytosis is resolved but CBC shows immature granulocytes 1.6% and bands suggestive of left shift. Stool for Giardia antigen pending. Patient and anticipating to see GI therefore Dr. Smith consulted and discussed with him 2. Chronic low blood pressure but does not meet diagnosis of hypotension: Usually patient blood pressure is in 100s or high 90s. Patient denies any dizziness lightheadedness or vertigo. She states her blood pressure has always been low. Continue IV fluid support and orthostatic blood pressure tomorrow AM. 05/05: Blood pressure in 90s. No dizziness or symptoms of hypotension. 3. History of melanoma excision VTE prophylaxis: Pharmacological prophylaxis is contraindicated because of rectal bleed. Bilateral SCDs CODE STATUS full code. Discussed with the family. Living will/advanced directive/end of life care: Patient does not have living will or advanced directive. After discussion of benefits/risks procedures involved with full code, DNR CC arrest and DNR CC, the patient and her opted for full code. Patient does want artificial life support including intubation, tube feed, ventilator and/chest compression, central venous catheter, vasopressor and DC shock if needed Total time of the visit including total time spent in counseling or coordination of care, (more than 50% of the total time, spent in obtaining medical information from nurses and other ancillary care providers,explaining to the patient about labs, imaging, diagnosis and management of active complex medical conditions), differential diagnosis of colitis, diarrhea discussion with project construction assistant manager and explanation to the patient and her , review of labs and imaging is 40 minutes. Charges/Coding Visit Charges Inpatient E&M: 64403 Subs Hosp L3
[2023-05-05 08:08] VITALS: BP 98/67; PULSE 83; RESP 18; TEMP 36.6; O2SAT 94; O2SAT 98
[2023-05-05] MEDS: LORazepam 2 MG/ML Syringe 0.5 MG IV (09:51)
[2023-05-05] MEDS: Lactated Ringers 1,000 ML 150 ML IV ×2 (09:52→21:26)
[2023-05-05] MEDS: Ciprofloxacin 400 MG/200 ML BAG 200 MG IV ×2 (09:52→22:34)
[2023-05-05 10:13] LABS: Phosphorus 2.6 mg/dL (2.5-4.9)
[2023-05-05] MEDS: Dicyclomine 10 MG Capsule PO ×2 (11:54→14:48)
[2023-05-05] MEDS: ALPRAZolam 0.25 MG Tablet PO ×2 (11:54→22:33)
[2023-05-05] MEDS: Pantoprazole Sodium 40 MG Tablet PO (11:54)
[2023-05-05] MEDS: Potassium Chloride Oral Tablet 20 MEQ 40 MEQ PO (11:55)
[2023-05-05 15:08] VITALS: BP 112/75; PULSE 86; RESP 18; TEMP 37.3; O2SAT 99
--- NOTE | 2023-05-05 20:57 | EX.PCM.CON.G ---
HPI Consult Data Date of Consult: 05/05/23 HPI Narrative Reason for Consultation: Abdominal pain and lower gi bleeding HPI Narrative: MICHAEL ESPARZA, is a 52 F who presented with abdominal pain to the ER and back on 05/03/2023. She says that the pain has been waxing and waning over the past couple week. However, it became relatively constant for the past 2 days. Patient states it has come on gradually. Patient states it has been constant for the past 2 days. Patient describes her pain as cramping, aching, and sharp. She got a CT scan in the emergency room and it was determined to have interfuse colitis. She was given oral antibiotics, ciprofloxacin and Flagyl. She was not able to tolerate the medicine to orally at home so she came back to the hospital on 2022. CTA of the abdomen pelvis was ordered, and it showed again diffuse colitis likely secondary to ischemic colitis. Patient states her pain is diffuse across her abdomen. Patient states nothing makes it better and nothing makes it worse. Patient states that she noted some blood in her stools last night. Patient states she has had some mucousy diarrhea prior to that. Patient states she feels some pressure in her rectal area. Patient does admit to some nausea and vomiting. Patient denies any hematemesis or coffee-ground emesis. Patient admits to some mild dysuria. Patient denies any fevers or chills. She says that her stool studies as an outpatient or negative for infection such as CDiff in her stool cultures were negative. She does admit to using well water, and she does admit to frequent camping trips. She denies any sick contacts or recent travel. [facility] Medical History Cancer Colitis Melanoma Home Medications ciprofloxacin HCl 500 mg tablet 500 mg PO BID #20 TABLETS 05/03/23 [Rx Last Taken 05/03/23] metronidazole 500 mg tablet 500 mg PO Q6H #40 tabs 05/03/23 [Rx Last Taken 05/03/23] diphenoxylate-atropine 2.5 mg-0.025 mg tablet 1 tab PO Q12H PRN diarrhea 05/04/23 [History Last Taken 05/03/23] Allergy/AdvReac Type Severity Reaction Status Date / Time sulfamethoxazole Allergy Severe Swelling Verified 05/03/23 08:17 [From Bactrim] trimethoprim [From Bactrim] Allergy Severe Swelling Verified 05/03/23 08:17 Surgical History Hx of section Hx of melanoma excision Social History Smoking Status: Current every day smoker tobacco type: cigarettes ROS ROS Narrative Constitutional: Reports fatigue and weakness. In severe pain. No fever. HEENT: Feels thirsty and dehydrated. Reports systems reviewed and no addt'l complaints, except as documented Respiratory/Chest: No acute shortness of breath or respiratory distress or wheezing. CVS: No chest pain pressure or tightness. Gastrointestinal: Denies coffee ground emesis, hematemesis but nausea vomiting. Rest as described in HPI. Genitourinary: Denies burning urination or new urinary tract symptoms Musculoskeletal: Denies acute joint pain or limited range of motion. No acute injury Neurologic: Denies seizure-like symptoms. No acute or strokelike symptoms. skin: No ulcer. No rash. History of melanoma excision. Endocrinology: Reports systems reviewed and no addt'l complaints, except as documented Hematologic/Lymphatic: Reports systems reviewed and no addt'l complaints, except as documented Rest 14 ROS are negative except as mentioned in HPI Physical Exam Narrative General: Alert, Oriented x3, Cooperative HEENT: Atraumatic, PERRLA, EOMI, Normocephalic Oral: Oral mucosa very dry. No Gingival or Mucosal Lesions/ Ulcerations Neck: Supple, No JVD, Negative Carotid Bruits Lungs: Air entry diminished in bilateral lung bases. No crepitation/rhonchi Cardiovascular: Mild sinus tachycardia, Normal S1, Normal S2, systolic murmur right second ICS. Abdomen: Bowel Sounds hyperactive, Soft, tender predominantly in the left upper and lower quadrant and hypogastrium. No guarding/rigidity or peritoneal signs. : No renal angle tenderness. No suprapubic tenderness. Extremities: No edema, Capillary Refill Less than 3 Seconds Skin: No rashes, No breakdown Musculoskeletal: No Tenderness to Palpation of Joints or Extremities. ROM full and intact. Neurological: Cranial nerves II-XII grossly intact, DTR 2+/4. No acute focal neurological deficit. Psych/Mental Status: Flat affect. Lab / Micro Data 05/05/23 05:13 05/05/23 05:13 Labs: Laboratory Results - last 24 hr 05/05/23 05:13: WBC 6.9, RBC 3.80 L, Hgb 10.9 L, Hct 33.4 L, MCV 87.9, MCH 28.7, MCHC 32.6, RDW Std Deviation 42.2, RDW Coeff of Audrey 13.1, Plt Count 287, MPV 9.2, Immature Gran % (Auto) 1.600 H, Neut % (Auto) 61.4, Lymph % (Auto) 19.5, [place] % (Auto) 15.7 H, Eos % (Auto) 1.2, Baso % (Auto) 0.6, Absolute Neuts (auto) 4.2, Absolute Lymphs (auto) 1.34, Nucleated RBC % 0, Differential Comment , Sodium 138, Potassium 3.2 L, Chloride 111 H, Carbon Dioxide 24.0, Anion Gap 3 L, BUN 9, Creatinine 0.38 L, Estim Creat Clear Calc 154.06, Est GFR (MDRD) Af Amer 231, Est GFR (MDRD) Non-Af 191, BUN/Creatinine Ratio 24.0 H, Glucose 94, Calcium 7.2 L, Phosphorus 2.6 Micro: Microbiology 05/04/23 16:30 Stool Stool Lactoferrin - Final 05/04/23 16:30 Stool Enteric Bacteriology - Final 05/04/23 16:30 Stool C. difficile DNA Amplification - Final Assessment & Plan Assessment/Plan (1) Abdominal pain: QUALIFIERS: Abdominal location: left lower quadrant Qualified Code(s): R10.32 - Left lower quadrant pain (2) Colitis: PLAN: Plan The differential diagnosis for cramping, lower, G.I. bleeding, and a young woman would be ischemic, colitis, infectious, colitis, and ulcerative colitis. She does take some herbal supplements, and she does have an IUD. Herbal supplements, in vitamin supplements can be associated with ischemic colitis. Intrauterine device is typically are not associated with ischemic colitis. Ischemic colitis has been diagnosed in relatively young and healthy individuals, particularly young women on estrogen or combined oral contraceptives (OCPs). She should undergo colonoscopy for biopsies and possible direct stool, culture and stool antigen testing for Giardia. She is very nauseated at this time, and I don't think she can tolerate a prep. I don't think that she's ever had a colonoscopy in the past. Recommendations: -Check ESR, CRP -Levison 0.125 mg POQ6 hours schedule. -Xanax 0.25 mg PO to eight hours schedule. -Stool antigen for Giardia -Colonoscopy -Hypercoagulable labs Charges/Coding Visit Charges Inpatient E&M: 08665 Init Hosp L3
[2023-05-05 21:30] VITALS: BP 110/64; PULSE 81; RESP 18; TEMP 36.8; O2SAT 97
[2023-05-05 21:31] VITALS: BP 110/64; PULSE 81; RESP 18; TEMP 36.8; O2SAT 97
[2023-05-05 21:48] LABS: Ferritin 66 ng/mL (8-252); LDH 193 U/L (84-246)
[2023-05-05] MEDS: 0.9% Saline Lock 10 ML Syringe IV (22:37)
[2023-05-05 23:12] LABS: Erythrocyte Sedimentation Rate 3 mm/hr (0-30)
[2023-05-06] VITALS (7 sets, daily range): BP systolic 94–108; BP diastolic 57–69; PULSE 68–87; RESP 16–18; TEMP 36.7–37.1; O2SAT 95–98
[2023-05-06] MEDS: 0.9% Saline Lock 10 ML Syringe IV (06:04)
[2023-05-06] MEDS: metroNIDAZOLE 500 MG/100 ML BAG 100 MG IV ×3 (06:06→21:03)
[2023-05-06] MEDS: Dicyclomine 10 MG Capsule PO ×3 (06:06→16:06)
[2023-05-06 06:41] LABS: Absolute Lymphocyte Count 1.86 X10^3/uL (0.83-4.51); Absolute Neutrophil Count 6.2 X10^3/uL (2.0-7.7); Basophil# 0.05 X10^3/uL; Basophil% 0.5 % (0-1); Eosinophil# 0.15 X10^3/uL; Eosinophils% 1.6 % (0-5); Hematocrit 33.4 % (37-47); Lymphocyte # 1.86 X10^3/ul (0.83-4.51); Lymphocyte % 19.5 % (19-41); Mean Corp Hgb Conc 32.9 g/dL (32-36); Mean Corpuscular Hgb 28.8 pg (27.0-32.0); Mean Corpuscular Volume 87.4 fL (81-99); Mean Platelet Vol. 8.8 fl (6.2-12.0); Monocyte# 1.07 X10^3/uL; Monocyte% 11.2 % (0-10); NRBC Flagged by Analyzer 0 % (0-5); Neutrophil % 64.9 % (47-70); Platelet Count 313 K/mm3 (150-450); RBC Distribution Width CV 13.2 % (11.6-14.6); RBC Distribution Width SD 41.4 fl (35.1-43.9); Red Blood Count 3.82 M/mm3 (4.2-5.4); White Blood Count 9.6 K/mm3 (4.4-11.0)
[2023-05-06 07:04] LABS: Anion Gap 8 (5-15); BUN 7 mg/dL (7-18); BUN/Creat Ratio 18.9 RATIO (10-20); Calcium,Total 7.2 mg/dL (8.5-10.1); Chloride 109 mmol/L (98-107); Creatinine, Serum 0.37 mg/dL (0.55-1.02); EST Glomerular Filtration Rate 193 mL/min (>60); Est Glom Filt Rate - Afr Amer 234 mL/min (>60); Estimated Creatinine Clearance 158.23 ml/min; Glucose 95 mg/dL (74-106); Potassium 2.9 mmol/L (3.5-5.1); Sodium Level 139 mmol/L (136-145)
--- NOTE | 2023-05-06 07:26 | PN.HOSP_ITS ---
Reason for Visit Reason for Visit: Diagnoses Noninfective gastroenteritis and colitis, unspecified (05/05/23) Left lower quadrant pain (05/05/23) Subjective Subjective Still with abdominal pain and cramping. Still with loose stools preceded by craps manager mping. Objective Data Objective Data Vital Signs: Vital Signs Temp Pulse Resp BP Pulse Ox O2 Del Method 36.7 C 84 16 102/57 L 95 Room Air 05/06/23 02:15 05/06/23 02:15 05/06/23 02:15 05/06/23 02:15 05/06/23 02:15 05/06/23 02:15 Oxygen Delivery Method Room Air Weight: 62 kg Body Mass Index (BMI) 22.7 Intake & Output: Intake and Output for Last 24 Hours 05/04/23 05/05/23 05/06/23 23:59 23:59 23:59 Intake Total 3130.0 / 3130.0 3528.5 / 3528.5 1000 / 1000 Balance 3130.0 / 3130.0 3528.5 / 3528.5 1000 / 1000 Lab / Micro Data 05/06/23 05:44 05/06/23 05:44 Labs: Laboratory Results - last 24 hr 05/05/23 05:13: Differential Comment , ESR 3, Phosphorus 2.6, Ferritin 66, Lactate Dehydrogenase 193, C-React Prot Ext Range 21.20 H 05/05/23 22:05: Stool Calprotectin Cancelled, Stl Giardia Antigen Cancelled 05/06/23 05:44: WBC 9.6, RBC 3.82 L, Hgb 11.0 L, Hct 33.4 L, MCV 87.4, MCH 28.8, MCHC 32.9, RDW Std Deviation 41.4, RDW Coeff of Audrey 13.2, Plt Count 313, MPV 8.8, Immature Gran % (Auto) 2.300 H, Neut % (Auto) 64.9, Lymph % (Auto) 19.5, [place] % (Auto) 11.2 H, Eos % (Auto) 1.6, Baso % (Auto) 0.5, Absolute Neuts (auto) 6.2, Absolute Lymphs (auto) 1.86, Nucleated RBC % 0, Sodium 139, Potassium 2.9 L , Chloride 109 H, Carbon Dioxide 22.0, Anion Gap 8, BUN 7, Creatinine 0.37 L, Estim Creat Clear Calc 158.23, Est GFR (MDRD) Af Amer 234, Est GFR (MDRD) Non-Af 193, BUN/Creatinine Ratio 18.9, Glucose 95, Calcium 7.2 L Micro: Microbiology 05/04/23 16:30 Stool Stool Lactoferrin - Final 05/04/23 16:30 Stool Enteric Bacteriology - Final 05/04/23 16:30 Stool C. difficile DNA Amplification - Final Physical Exam Const alert and no apparent distress HEENT head/scalp atraumatic and moist oral mucous membranes Resp normal respiratory effort, no retractions, no use of accessory muscles and clear to auscultation bilaterally Cardio regular rate, regular rhythm, S1 normal heart sound and S2 normal heart sound GI normal to inspection, nondistended, normoactive bowel sounds, soft to palpation, non-tender and non-distended Extremity normal to inspection and full ROM Assessment & Plan Assessment/Plan (1) Colitis: PLAN: Acute left-sided/transverse, DC, sigmoid up to rectum colitis: Exact etiology unclear: ischemic, infectious, ulcerative colitis. IV fluid resuscitation initially with normal saline and then Ringer lactate. IV Cipro and Flagyl ordered. Stool for enteric bacteriology panel and C. difficile ordered. Supportive treatment for nausea vomiting and oxycodone, Bentyl and IV morphine abdominal pain. GI consult: plan for colonoscopy Abx metronidazole Data: * Enteric bacteriology panel negative for Campylobacter, Salmonella, Shigella with Shiga toxin, Yersinia, vibrio, rotavirus and norovirus. * WBC lactoferrin positive suggestive of inflammatory/infectious colitis. * C. difficile PCR negative. Leukocytosis is resolved but CBC shows immature granulocytes 1.6% and bands suggestive of left shift. * Stool for Giardia antigen pending. * CT abdomen usually reviewed and shows small right paracolic gutter fluid may be due to microperforation. CT does not report microperforation but diffuse thickening of colon from transverse colon to rectum. * Lactic acid normal. * O+P pending PLAN: Plan Chronic conditions: * Chronic low blood pressure but does not meet diagnosis of hypotension: Usually patient blood pressure is in 100s or high 90s. Patient denies any dizziness lightheadedness or vertigo. She states her blood pressure has alway s been low. Continue IV fluid support and orthostatic blood pressure tomorrow AM. Blood pressure in 90s. No dizziness or symptoms of hypotension. * History of melanoma excision VTE prophylaxis: SCDs CODE STATUS full code. Charges/Coding Visit Charges Inpatient E&M: 09192 Subs Hosp L2
[2023-05-06] MEDS: Potassium Chloride Oral Tablet 20 MEQ 40 MEQ PO ×3 (08:34→16:07)
[2023-05-06] MEDS: Ciprofloxacin 400 MG/200 ML BAG 200 MG IV ×2 (10:17→22:50)
[2023-05-06] MEDS: Pantoprazole Sodium 40 MG Tablet PO (10:18)
--- NOTE | 2023-05-06 11:20 | CASEMGMT ---
RN CHANG Assessment: Face to Face with pt for initial transition planning/care coordination assessment. RN CM introduced self and role at [facility], pt voices understanding and consents to assessment. Pt is A/O x4 and answers all questions appropriately at this time. Pt sitting up in bed with at bedside. Care providers, pharmacy, and demographics verified/updated. Admitting Dx: transverse and dc colitis PCP:Fredy Carter FLOTATION OPERATOR Specialists:vickie Ventura Pharmacy: [facility] Insurance: [employer] Prescription Benefit: yes LNOK: Faisal Knox, Living Arrangements: Pt lives with in a single story home with 4 steps to enter. Pt reports she is I in ADL's and denies concerns at home. Transportation: Pt drives self and denies concerns with transportation. DME/HHC/SNF: Pt has a BP cuff at home, no AD. Pt denies hx of HHC or SNF stays. Pt states no concerns with going home at time of dc. Pt states no further concerns/needs. CM to follow. Advised pt to ask CM if any further question/concerns/needs arise, voices understanding. Pt Goal: Home Plan: Home
[2023-05-06] MEDS: Acetaminophen 325 MG Tablet 650 MG PO (14:19)
[2023-05-06] MEDS: oxyCODONE 5 MG Tablet PO ×2 (14:20→22:50)
--- NOTE | 2023-05-06 20:02 | PN.GI_ITS ---
Subjective Subjective Patient is still having abdominal pain and cramping. She has been afebrile. Objective Data Objective Data Vital Signs: Vital Signs Temp Pulse Resp BP Pulse Ox O2 Del Method 98.6 F 78 16 102/69 98 Room Air 05/06/23 14:04 05/06/23 14:04 05/06/23 14:04 05/06/23 14:04 05/06/23 14:04 05/06/23 14:04 Oxygen Delivery Method Room Air Weight: 136 lb 10.986 oz Body Mass Index (BMI) 22.7 Intake & Output: Intake and Output for Last 24 Hours 05/04/23 05/05/23 05/06/23 23:59 23:59 23:59 Intake Total 3130.0 / 3130.0 3528.5 / 3528.5 1400 / 1400 Balance 3130.0 / 3130.0 3528.5 / 3528.5 1400 / 1400 Lab / Micro Data 05/06/23 05:44 05/06/23 05:44 Labs: Laboratory Results - last 24 hr 05/05/23 05:13: ESR 3, Ferritin 66, Lactate Dehydrogenase 193, C-React Prot Ext Range 21.20 H 05/05/23 22:05: Stool Calprotectin Cancelled, Stl Giardia Antigen Cancelled 05/06/23 05:44: WBC 9.6, RBC 3.82 L, Hgb 11.0 L, Hct 33.4 L, MCV 87.4, MCH 28.8, MCHC 32.9, RDW Std Deviation 41.4, RDW Coeff of Audrey 13.2, Plt Count 313, MPV 8.8, Immature Gran % (Auto) 2.300 H, Neut % (Auto) 64.9, Lymph % (Auto) 19.5, [place] % (Auto) 11.2 H, Eos % (Auto) 1.6, Baso % (Auto) 0.5, Absolute Neuts (auto) 6.2, Absolute Lymphs (auto) 1.86, Nucleated RBC % 0, Sodium 139, Potassium 2.9 L , Chloride 109 H, Carbon Dioxide 22.0, Anion Gap 8, BUN 7, Creatinine 0.37 L, Estim Creat Clear Calc 158.23, Est GFR (MDRD) Af Amer 234, Est GFR (MDRD) Non-Af 193, BUN/Creatinine Ratio 18.9, Glucose 95, Calcium 7.2 L Micro: Microbiology 05/04/23 16:30 Stool Stool Lactoferrin - Final 05/04/23 16:30 Stool Enteric Bacteriology - Final 05/04/23 16:30 Stool C. difficile DNA Amplification - Final Physical Exam Const alert and no apparent distress HEENT head/scalp atraumatic and moist oral mucous membranes Resp normal respiratory effort, no retractions, no use of accessory muscles and clear to auscultation bilaterally Cardio regular rate, regular rhythm, S1 normal heart sound and S2 normal heart sound GI normal to inspection, nondistended, normoactive bowel sounds, soft to palpation, non-tender and non-distended Extremity normal to inspection and full ROM Assessment & Plan Assessment/Plan (1) Colitis: PLAN: Plan This is 52-year-old female is being admitted for 2 weeks of severe abdominal pain and rectal bleed consistent with colitis 1. Acute left-sided/transverse, DC, sigmoid up to rectum colitis: Exact etiology unclear. [facility] IV fluid resuscitation initially with normal saline and then Ringer lactate. IV Cipro and Flagyl ordered. Stool for enteric bacteriology panel and C. difficile are negative. CT abdomen usually reviewed and shows small right paracolic gutter fluid may be due to microperforation. CT does not report microperforation but diffuse thickening of colon from transverse colon to rectum. Supportive treatment for nausea vomiting and oxycodone, Bentyl and IV morphine abdominal pain. Lactic acid normal. Enteric bacteriology panel negative for Campylobacter, Salmonella, Shigella with Shiga toxin, Yersinia, vibrio, rotavirus and norovirus. WBC lactoferrin positive suggestive of inflammatory/infectious colitis. C. difficile PCR negative. 05/06/23- Patient needs a colonscopy but she cant tolerate a prep at this time. She can have scheduled bentyl for the cramping . Charges/Coding Visit Charges Inpatient E&M: 96710 Subs Hosp L3
[2023-05-06] MEDS: ALPRAZolam 0.25 MG Tablet PO (22:50)
[2023-05-07 05:30] VITALS: BP 88/64; PULSE 88; RESP 18; TEMP 36.9; O2SAT 95
[2023-05-07] MEDS: Dicyclomine 10 MG Capsule PO ×3 (05:35→15:07)
[2023-05-07] MEDS: metroNIDAZOLE 500 MG/100 ML BAG 100 MG IV ×3 (05:35→21:11)
[2023-05-07 06:47] LABS: Absolute Neutrophil Count 4.1 X10^3/uL (2.0-7.7); Basophil# 0.04 X10^3/uL; Basophil% 0.5 % (0-1); Eosinophil# 0.17 X10^3/uL; Eosinophils% 2.3 % (0-5); Hematocrit 33.3 % (37-47); Hemoglobin 11.2 g/dL (12.0-15.0); Lymphocyte % 26.5 % (19-41); Mean Corp Hgb Conc 33.6 g/dL (32-36); Mean Corpuscular Hgb 29.9 pg (27.0-32.0); Mean Platelet Vol. 8.7 fl (6.2-12.0); Monocyte# 0.94 X10^3/uL; Monocyte% 12.5 % (0-10); NRBC Flagged by Analyzer 0 % (0-5); Neutrophil # 4.05 X10^3/uL (2.7-7.7); Neutrophil % 53.6 % (47-70); POSITIVE MORPHOLOGY YES; Platelet Count 291 K/mm3 (150-450); RBC Distribution Width CV 13.2 % (11.6-14.6); RBC Distribution Width SD 43.2 fl (35.1-43.9); Red Blood Count 3.74 M/mm3 (4.2-5.4); White Blood Count 7.6 K/mm3 (4.4-11.0)
[2023-05-07 06:50] LABS: Differential Indicated SCAN CRITERIA MET
--- NOTE | 2023-05-07 07:07 | PN.HOSP_ITS ---
Reason for Visit Reason for Visit: Diagnoses Noninfective gastroenteritis and colitis, unspecified (05/04/23) Left lower quadrant pain (05/04/23) Subjective Subjective Feeling better. Cramps less intense. Tolerated liquids. Still w hematochezia, b ut improving. Objective Data Objective Data Vital Signs: Vital Signs Temp Pulse Resp BP Pulse Ox O2 Del Method 36.9 C 88 18 88/64 L 95 Room Air 05/07/23 05:30 05/07/23 05:30 05/07/23 05:30 05/07/23 05:30 05/07/23 05:30 05/07/23 05:30 Oxygen Delivery Method Room Air Weight: 62 kg Body Mass Index (BMI) 22.7 Intake & Output: Intake and Output for Last 24 Hours 05/05/23 05/06/23 05/07/23 23:59 23:59 23:59 Intake Total 3528.5 / 3528.5 1700 / 1700 100 / 100 Balance 3528.5 / 3528.5 1700 / 1700 100 / 100 Lab / Micro Data 05/07/23 05:55 05/07/23 05:55 Labs: Laboratory Results - last 24 hr 05/07/23 05:55: WBC 7.6, RBC 3.74 L, Hgb 11.2 L, Hct 33.3 L, MCV 89.0, MCH 29.9, MCHC 33.6, RDW Std Deviation 43.2, RDW Coeff of Audrey 13.2, Plt Count 291, MPV 8.7, Immature Gran % (Auto) 4.600 H, Neut % (Auto) 53.6, Lymph % (Auto) 26.5, [place] % (Auto) 12.5 H, Eos % (Auto) 2.3, Baso % (Auto) 0.5, Absolute Neuts (auto) 4.1, Absolute Lymphs (auto) 2.00, Nucleated RBC % 0 Micro: Microbiology 05/04/23 16:30 Stool Stool Lactoferrin - Final 05/04/23 16:30 Stool Enteric Bacteriology - Final 05/04/23 16:30 Stool C. difficile DNA Amplification - Final Physical Exam Const alert and no apparent distress HEENT head/scalp atraumatic and moist oral mucous membranes Resp normal respiratory effort, no retractions, no use of accessory muscles and clear to auscultation bilaterally Cardio regular rate, regular rhythm, S1 normal heart sound and S2 normal heart sound GI normal to inspection, nondistended, normoactive bowel sounds, soft to palpation, non-tender and non-distended Extremity normal to inspection Assessment & Plan Assessment/Plan (1) Colitis: PLAN: Improving Acute left-sided/transverse, DC, sigmoid up to rectum colitis: Exact etiology unclear: ischemic, infectious, ulcerative colitis. IV fluid resuscitation initially with normal saline and then Ringer lactate. IV Cipro and Flagyl ordered. Supportive treatment for nausea vomiting and oxycodone, Bentyl and IV morphine abdominal pain. GI consult: plan for colonoscopy Abx metronidazole + cipro Advance to [facility] Data: * Enteric bacteriology panel negative for Campylobacter, Salmonella, Shigella with Shiga toxin, Yersinia, vibrio, rotavirus and norovirus. * WBC lactoferrin positive suggestive of inflammatory/infectious colitis. * C. difficile PCR negative. * Leukocytosis is resolved but CBC shows immature granulocytes 1.6% and bands suggestive of left shift. * Stool for Giardia antigen pending. * CT abdomen usually reviewed and shows small right paracolic gutter fluid may be due to microperforation. CT does not report microperforation but diffuse thickening of colon from transverse colon to rectum. * Lactic acid normal. * O+P pending, Giardia pending. PLAN: Plan Chronic conditions: * Chronic low blood pressure but does not meet diagnosis of hypotension: Usually patient blood pressure is in 100s or high 90s. Patient denies any dizziness lightheadedness or vertigo. She states her blood pressure has always been low. Continue IV fluid support and orthostatic blood pressure tomorrow AM. Blood pressure in 90s. No dizziness or symptoms of hypotension. * History of melanoma excision VTE prophylaxis: SCDs CODE STATUS full code. Charges/Coding Visit Charges Inpatient E&M: 79174 Subs Hosp L2
[2023-05-07 07:14] LABS: Atypical Lymphocyte 1+ %; Differential Comment SCANNED
[2023-05-07 07:15] LABS: ALB/GLOB Ratio 0.6 RATIO (0.9-2.4); AST(SGOT) 16 U/L (15-37); Alanine Aminotransfer ALT/SGPT 12 U/L (13-56); Albumin, Serum 1.5 g/dL (3.2-5.0); Alkaline Phosphatase 54 U/L (45-117); Anion Gap 5 (5-15); BUN 7 mg/dL (7-18); BUN/Creat Ratio 17.4 RATIO (10-20); Calcium,Total 7.3 mg/dL (8.5-10.1); Chloride 111 mmol/L (98-107); EST Glomerular Filtration Rate 175 mL/min (>60); Est Glom Filt Rate - Afr Amer 212 mL/min (>60); Estimated Creatinine Clearance 146.36 ml/min; Globulin 2.5 g/dL (2.2-4.2); Glucose 90 mg/dL (74-106); Potassium 3.8 mmol/L (3.5-5.1); Sodium Level 138 mmol/L (136-145)
[2023-05-07 08:01] VITALS: BP 91/55; PULSE 89; RESP 16; TEMP 36.7; O2SAT 97
[2023-05-07] MEDS: Potassium Chloride Oral Tablet 20 MEQ 40 MEQ PO (08:32)
[2023-05-07] MEDS: Pantoprazole Sodium 40 MG Tablet PO (10:33)
[2023-05-07] MEDS: Ciprofloxacin 400 MG/200 ML BAG 200 MG IV ×2 (11:00→22:40)
[2023-05-07 11:09] LABS: Anti-Centromere B Ab <0.2 AI (0.0-0.9); Anti-Chromatin <0.2 AI (0.0-0.9); Anti-Jo <0.2 AI (0.0-0.9); Anti-Scleroderma-70 AB 0.6 AI (0.0-0.9); Anti-dsDNA Ab <1 IU/mL (0-9); RNP Ab <0.2 AI (0.0-0.9); SJOGREN'S Anti-SS-A test < 0.2 AI (0.0-0.9); SJOGREN'S Anti-SS-B test < 0.2 AI (0.0-0.9); Smith Ab <0.2 AI (0.0-0.9)
[2023-05-07 13:07] LABS: Giardia Lamblia, Stool EIA Negative (Negative)
[2023-05-07 15:02] VITALS: BP 95/55; PULSE 93; RESP 16; TEMP 36.4; O2SAT 95
[2023-05-07 16:09] LABS: Cytoplasmic Ab (C-ANCA) <1:20 titer (Neg:<1:20); Perinuclear Ab (P-ANCA) <1:20 titer (Neg:<1:20)
--- NOTE | 2023-05-07 18:24 | PN.GI_ITS ---
Subjective Subjective Patient says that her pain is down to 5 out of 10. She still has some nausea and bloating but the cramping is much better. She has not had any more lower GI bleeding. Objective Data Objective Data Vital Signs: Vital Signs Temp Pulse Resp BP Pulse Ox O2 Del Method 97.6 F L 93 16 95/55 L 95 Room Air 05/07/23 15:02 05/07/23 15:02 05/07/23 15:02 05/07/23 15:02 05/07/23 15:02 05/07/23 15:02 Oxygen Delivery Method Room Air Weight: 136 lb 10.986 oz Body Mass Index (BMI) 22.7 Intake & Output: Intake and Output for Last 24 Hours 05/05/23 05/06/23 05/07/23 23:59 23:59 23:59 Intake Total 3528.5 / 3528.5 1700 / 1700 400 / 400 Balance 3528.5 / 3528.5 1700 / 1700 400 / 400 Lab / Micro Data 05/07/23 05:55 05/07/23 05:55 Labs: Laboratory Results - last 24 hr 05/05/23 22:15: Stl Giardia Antigen Negative 05/06/23 05:44: c-ANCA Antibody <1:20, Atypical p-ANCA <1:20, p-ANCA Antibody <1:20, HECTOR-1 Antibody <0.2, SS-A/Ro IgG Antibody < 0.2, SS-B/La IgG Antibody < 0.2, Sm (Solomon) Antibody <0.2, POLITICAL SCIENCE RESEARCH ASSISTANT Antibody <0.2, Scl-70 Scleroderma Ab 0.6, Double Strand DNA Ab <1, Centromere B Antibody <0.2 05/07/23 05:55: WBC 7.6, RBC 3.74 L, Hgb 11.2 L, Hct 33.3 L, MCV 89.0, MCH 29.9, MCHC 33.6, RDW Std Deviation 43.2, RDW Coeff of Audrey 13.2, Plt Count 291, MPV 8.7, Immature Gran % (Auto) 4.600 H, Neut % (Auto) 53.6, Lymph % (Auto) 26.5, [place] % (Auto) 12.5 H, Eos % (Auto) 2.3, Baso % (Auto) 0.5, Absolute Neuts (auto) 4.1, Absolute Lymphs (auto) 2.00, Nucleated RBC % 0, Differential Comment SCANNED, Atypical Lymphocytes 1+, Sodium 138, Potassium 3.8, Chloride 111 H, Carbon Dioxide 22.0, Anion Gap 5, BUN 7, Creatinine 0.40 L, Estim Creat Clear Calc 146.36, Est GFR (MDRD) Af Amer 212, Est GFR (MDRD) Non-Af 175, BUN/Creatinine Ratio 17.4, Glucose 90, Calcium 7.3 L, Total Bilirubin 0.20, AST 16, ALT 12 L, Alkaline Phosphatase 54, Total Protein 4.0 L, Albumin 1.5 L, Globulin 2.5, Albumin/Globulin Ratio 0.6 L Micro: Microbiology 05/04/23 16:30 Stool Stool Lactoferrin - Final 05/04/23 16:30 Stool Enteric Bacteriology - Final 05/04/23 16:30 Stool C. difficile DNA Amplification - Final Physical Exam Const alert and no apparent distress HEENT head/scalp atraumatic and moist oral mucous membranes Resp normal respiratory effort, no retractions, no use of accessory muscles and clear to auscultation bilaterally Cardio regular rate, regular rhythm, S1 normal heart sound and S2 normal heart sound GI normal to inspection, nondistended, normoactive bowel sounds, soft to palpation, non-tender and non-distended Extremity normal to inspection Assessment & Plan Assessment/Plan (1) Colitis: PLAN: Plan This is 52-year-old female is being admitted for 2 weeks of severe abdominal pain and rectal bleed consistent with colitis Acute left-sided/transverse, DC, sigmoid up to rectum colitis: Exact etiology unclear. Patient is being admitted on MedSurg floor. IV fluid resuscitation i nitially with normal saline and then Ringer lactate. IV Cipro and Flagyl ordered. Stool for enteric bacteriology panel and C. difficile are negative. CT abdomen usually reviewed and shows small right paracolic gutter fluid may be due to microperforation. CT does not report microperforation but diffuse thickening of colon from transverse colon to rectum. Supportive treatment for nausea vomiting and oxycodone, Bentyl and IV morphine abdominal pain. Lactic acid normal. Enteric bacteriology panel negative for Campylobacter, Salmonella, Shigella with Shiga toxin, Yersinia, vibrio, rotavirus and norovirus. WBC lactoferrin positive suggestive of inflammatory/infectious colitis. C. difficile PCR negative. 05/06/23- Patient needs a colonoscopy but she cant tolerate a prep at this time. She can have scheduled bentyl for the cramping. 05/07/23-her autoimmune labs including tissue transglutaminase for celiac disease and REFUGIO for vasculitis are negative. Tap on the differential diagnosis is still Giardia infection with underlying ischemic colitis. However also the differential diagnosis would be ulcerative colitis. I will start her on mesalamine 40 mg 3 times daily and we will increase her dicyclomine to 20 mg p.o. 3 times daily because she is doing well. She still cannot tolerate the volume for a colonoscopy as per the patient at this time. I sent off IBD labs to [facility]. However that takes to 7 to 10 days to come back. Charges/Coding Visit Charges Inpatient E&M: 08065 Subs Hosp L3
[2023-05-07] MEDS: Dicyclomine 10 MG Capsule 20 MG PO (19:04)
[2023-05-07] MEDS: oxyCODONE 5 MG Tablet PO (21:11)
[2023-05-07] MEDS: ALPRAZolam 0.25 MG Tablet PO (21:11)
[2023-05-07] MEDS: MESALAMINE 400 MG CAPSULE.DR PO (21:12)
[2023-05-07 21:49] VITALS: BP 118/74; PULSE 78; RESP 16; TEMP 36.7; O2SAT 96
[2023-05-08 04:30] VITALS: BP 95/61; PULSE 85; RESP 16; TEMP 36.7; O2SAT 98
[2023-05-08] MEDS: Dicyclomine 10 MG Capsule 20 MG PO ×2 (04:39→11:33)
[2023-05-08] MEDS: MESALAMINE 400 MG CAPSULE.DR PO (04:39)
[2023-05-08] MEDS: metroNIDAZOLE 500 MG/100 ML BAG 100 MG IV (04:39)
[2023-05-08 06:37] LABS: Hemoglobin 12.9 g/dL (12.0-15.0); Mean Corp Hgb Conc 31.5 g/dL (32-36); Mean Corpuscular Hgb 28.3 pg (27.0-32.0); Mean Corpuscular Volume 89.9 fL (81-99); Mean Platelet Vol. 8.3 fl (6.2-12.0); POSITIVE COUNT YES; POSITIVE MORPHOLOGY YES; Platelet Count 362 K/mm3 (150-450); RBC Distribution Width CV 13.3 % (11.6-14.6); RBC Distribution Width SD 43.8 fl (35.1-43.9); Red Blood Count 4.56 M/mm3 (4.2-5.4); White Blood Count 9.3 K/mm3 (4.4-11.0)
[2023-05-08 06:44] LABS: Differential Indicated MANUAL DIFF
--- NOTE | 2023-05-08 07:04 | PN.HOSP_ITS ---
Reason for Visit Reason for Visit: Diagnoses Noninfective gastroenteritis and colitis, unspecified (05/04/23) Left lower quadrant pain (05/04/23) Subjective Subjective Feeling better. Still tolerating FLD. Still with diarrhea. Abdominal cramping i mproved. Objective Data Objective Data Vital Signs: Vital Signs Temp Pulse Resp BP Pulse Ox O2 Del Method 36.7 C 85 16 95/61 98 Room Air 05/08/23 04:30 05/08/23 04:30 05/08/23 04:30 05/08/23 04:30 05/08/23 04:30 05/08/23 04:30 Oxygen Delivery Method Room Air Weight: 62 kg Body Mass Index (BMI) 22.7 Intake & Output: Intake and Output for Last 24 Hours 05/06/23 05/07/23 05/08/23 23:59 23:59 23:59 Intake Total 1700 / 1700 700 / 700 100 / 100 Balance 1700 / 1700 700 / 700 100 / 100 Lab / Micro Data 05/08/23 06:10 05/08/23 06:10 Labs: Laboratory Results - last 24 hr 05/05/23 22:15: Stl Giardia Antigen Negative 05/06/23 05:44: c-ANCA Antibody <1:20, Atypical p-ANCA <1:20, p-ANCA Antibody <1:20, HECTOR-1 Antibody <0.2, SS-A/Ro IgG Antibody < 0.2, SS-B/La IgG Antibody < 0.2, Sm (Solomon) Antibody <0.2, ORDNANCE EQUIPMENT WORKER Antibody <0.2, Scl-70 Scleroderma Ab 0.6, Double Strand DNA Ab <1, Centromere B Antibody <0.2 05/07/23 05:55: Differential Comment SCANNED, Atypical Lymphocytes 1+, Sodium 138, Potassium 3.8, Chloride 111 H, Carbon Dioxide 22.0, Anion Gap 5, BUN 7, Creatinine 0.40 L, Estim Creat Clear Calc 146.36, Est GFR (MDRD) Af Amer 212, Est GFR (MDRD) Non-Af 175, BUN/Creatinine Ratio 17.4, Glucose 90, Calcium 7.3 L, Total Bilirubin 0.20, AST 16, ALT 12 L, Alkaline Phosphatase 54, Total Protein 4.0 L, Albumin 1.5 L, Globulin 2.5, Albumin/Globulin Ratio 0.6 L 05/08/23 06:10: WBC 9.3, RBC 4.56, Hgb 12.9, Hct 41.0, MCV 89.9, MCH 28.3, MCHC 31.5 L D, RDW Std Deviation 43.8, RDW Coeff of Audrey 13.3, Plt Count 362, MPV 8.3, Neut % (Auto) Not Reportable Micro: Microbiology 05/04/23 16:30 Stool Stool Lactoferrin - Final 05/04/23 16:30 Stool Enteric Bacteriology - Final 05/04/23 16:30 Stool C. difficile DNA Amplification - Final Physical Exam Const alert and no apparent distress HEENT head/scalp atraumatic GI GI Narrative: mild abdominal tenderness. Assessment & Plan Assessment/Plan (1) Colitis: PLAN: Improving Acute left-sided/transverse, DC, sigmoid up to rectum colitis: Exact etiology unclear: ischemic, infectious, ulcerative colitis. IV fluid resuscitation initially with normal saline and then Ringer lactate. Supportive treatment for nausea vomiting and oxycodone, Bentyl and IV morphine abdominal pain. GI consult: plan for colonoscopy at some point, unclear if may deferred as outpt. Abx metronidazole + cipro continue through the . Started on mesalamine Advance to BRAT diet and advance as tolerated. Data: * Enteric bacteriology panel negative for Campylobacter, Salmonella, Shigella with Shiga toxin, Yersinia, vibrio, rotavirus and norovirus. * WBC lactoferrin positive * C. difficile PCR negative. * Stool for Giardia antigen pending. * CT abdomen usually reviewed and shows small right paracolic gutter fluid may be due to microperforation. CT does not report microperforation but diffuse thickening of colon from transverse colon to rectum. * Lactic acid normal. * TTG, REFUGIO, autoimmune labs negative * Giardia negative * O+P pending. PLAN: Plan Chronic conditions: * Chronic low blood pressure but does not meet diagnosis of hypotension: Usually patient blood pressure is in 100s or high 90s. Patient denies any dizziness lightheadedness or vertigo. She states her blood pressure has always been low. Continue IV fluid support and orthostatic blood pressure tomorrow AM. Blood pressure in 90s. No dizziness or symptoms of hypotension. * History of melanoma excision VTE prophylaxis: SCDs CODE STATUS full code.
[2023-05-08 07:05] LABS: ALB/GLOB Ratio 0.6 RATIO (0.9-2.4); AST(SGOT) 31 U/L (15-37); Alanine Aminotransfer ALT/SGPT 23 U/L (13-56); Albumin, Serum 2.2 g/dL (3.2-5.0); Alkaline Phosphatase 66 U/L (45-117); Anion Gap 5 (5-15); BUN 4 mg/dL (7-18); BUN/Creat Ratio 7.6 RATIO (10-20); Calcium,Total 8.1 mg/dL (8.5-10.1); Chloride 110 mmol/L (98-107); Creatinine, Serum 0.52 mg/dL (0.55-1.02); EST Glomerular Filtration Rate 130 mL/min (>60); Est Glom Filt Rate - Afr Amer 157 mL/min (>60); Estimated Creatinine Clearance 112.58 ml/min; Globulin 3.6 g/dL (2.2-4.2); Glucose 104 mg/dL (74-106); Potassium 3.7 mmol/L (3.5-5.1); Protein, Total 5.8 g/dL (6.4-8.2); Sodium Level 139 mmol/L (136-145)
[2023-05-08 07:22] LABS: Absolute Neutrophil Count 5.1 X10^3/uL (2.0-7.7); Lymphocyte 28 % (19-41); Metamyelocyte 2 % (0-1); Monocyte 15 % (0-10); Neutrophil-Band 7 % (0-5); Neutrophil-Segmented 48 % (47-70); Platelet Estimate ADEQUATE (ADEQ); Red Cell Morphology NORM C+C NORMAL (NORM C&C); Total Cells Counted 100 (MANUAL DIFF)
[2023-05-08 08:25] VITALS: BP 90/58; PULSE 87; RESP 18; TEMP 37.1; O2SAT 100
[2023-05-08 09:35] VITALS: BP 98/55; PULSE 100; RESP 18; TEMP 37.1; O2SAT 100
[2023-05-08] MEDS: Pantoprazole Sodium 40 MG Tablet PO (09:37)
[2023-05-08] MEDS: Ciprofloxacin 400 MG/200 ML BAG 200 MG IV (09:37)
--- NOTE | 2023-05-08 11:00 | PN.GI_ITS ---
Subjective Subjective Patient has been doing a lot better. Her abdominal pain and cramping is down to a 2 out of 10. She is not having any more GI bleeding. Objective Data Objective Data Vital Signs: Vital Signs Temp Pulse Resp BP Pulse Ox O2 Del Method 98.6 F 99 18 100/54 L 98 Room Air 05/08/23 14:03 05/08/23 14:03 05/08/23 14:03 05/08/23 14:03 05/08/23 14:03 05/08/23 14:03 Oxygen Delivery Method Room Air Weight: 136 lb 10.986 oz Body Mass Index (BMI) 22.7 Intake & Output: Intake and Output for Last 24 Hours 05/06/23 05/07/23 05/08/23 23:59 23:59 23:59 Intake Total 1700 / 1700 700 / 700 600 / 600 Balance 1700 / 1700 700 / 700 600 / 600 Lab / Micro Data 05/08/23 06:10 05/08/23 06:10 Labs: Laboratory Results - last 24 hr 05/05/23 22:15: Stool Calprotectin 1040 H 05/08/23 06:10: WBC 9.3, RBC 4.56, Hgb 12.9, Hct 41.0, MCV 89.9, MCH 28.3, MCHC 31.5 L D, RDW Std Deviation 43.8, RDW Coeff of Audrey 13.3, Plt Count 362, MPV 8.3, Neut % (Auto) Not Reportable, Absolute Neuts (auto) 5.1, Absolute Lymphs (auto) 2.60, Total Counted 100, Neutrophils % (Manual) 48, Band Neutrophils % 7 H, Lymphocytes % (Manual) 28, Monocytes % (Manual) 15 H, Metamyelocytes % 2 H, Diff Path Review May , Platelet Estimate ADEQUATE, RBC Morphology NORM C+C, Sodium 139, Potassium 3.7, Chloride 110 H, Carbon Dioxide 24.0, Anion Gap 5, BUN 4 L, Creatinine 0.52 L, Estim Creat Clear Calc 112.58, Est GFR (MDRD) Af Amer 157, Est GFR (MDRD) Non-Af 130, BUN/Creatinine Ratio 7.6 L, Glucose 104, Calcium 8.1 L, Total Bilirubin 0.20, AST 31, ALT 23, Alkaline Phosphatase 66, Total Protein 5.8 L, Albumin 2.2 L, Globulin 3.6, Albumin/Globulin Ratio 0.6 L Micro: Microbiology 05/04/23 16:30 Stool Stool Lactoferrin - Final 05/04/23 16:30 Stool Enteric Bacteriology - Final 05/04/23 16:30 Stool C. difficile DNA Amplification - Final Physical Exam Const alert and no apparent distress HEENT head/scalp atraumatic GI GI Narrative: mild abdominal tenderness. Assessment & Plan Assessment/Plan (1) Colitis: PLAN: Plan This is 52-year-old female is being admitted for 2 weeks of severe abdominal pain and rectal bleed consistent with colitis Acute left-sided/transverse, DC, sigmoid up to rectum colitis: Exact etiology unclear. [facility] IV fluid resuscitation initially with normal saline and then Ringer lactate. IV Cipro and Flagyl ordered. Stool for enteric bacteriology panel and C. difficile are negative. CT abdomen usually reviewed and shows small right paracolic gutter fluid may be due to microperforation. CT does not report microperforation but diffuse thickening of colon from transverse colon to rectum. Supportive treatment for nausea vomiting and oxycodone, Bentyl and IV morphine abdominal pain. Lactic acid normal. Enteric bacteriology panel negative for Campylobacter, Salmonella, Shigella with Shiga toxin, Yersinia, vibrio, rotavirus and norovirus. WBC lactoferrin positi ve suggestive of inflammatory/infectious colitis. C. difficile PCR negative. 05/06/23- Patient needs a colonoscopy but she cant tolerate a prep at this time. She can have scheduled bentyl for the cramping. 05/07/23-her autoimmune labs including tissue transglutaminase for celiac disease and REFUGIO for vasculitis are negative. Tap on the differential diagnosis is still Giardia infection with underlying ischemic colitis. However also the differential diagnosis would be ulcerative colitis. I will start her on mesalamine 40 mg 3 times daily and we will increase her dicyclomine to 20 mg p.o. 3 times daily because she is doing well. She still cannot tolerate the volume for a colonoscopy as per the patient at this time. I sent off IBD labs to [facility]. However that takes to 7 to 10 days to come back. 05/08/23-patient responded very well to medical therapy. Work-up for inflammatory bowel disease is pending. In the meantime she can continue on Bentyl and mesalamine therapy. Charges/Coding Visit Charges Inpatient E&M: 89305 Subs Hosp L3
--- NOTE | 2023-05-08 11:42 | DS.PCM_ITS ---
Providers Date of Admission: 05/04/23 Primary Care Physician: Blake Carter, STUDIO CAMERA OPERATOR-C Consultations 05/04/23 17:49 Consult: Gastroenterology Routine Consulting Provider: [facility] Reason for Consult: colitis, possible microperforations on CT EMERGENT Consult: No MD Notified: Yes Date Notified: 05/04/23 Time Notified: 17:51 Method of Notification: Verbal Reason For Visit: TRANVERSE AND DC COLITIS Diagnosis Discharge Diagnosis (1) Colitis: Status: Acute Code(s): K52.9 - Noninfective gastroenteritis and colitis, unspecified Plan: Improving Acute left-sided/transverse, DC, sigmoid up to rectum colitis: Exact etiology unclear: ischemic, infectious, ulcerative colitis. IV fluid resuscitation initially with normal saline and then Ringer lactate. Supportive treatment for nausea vomiting and oxycodone, Bentyl and IV morphine abdominal pain. GI consult: plan for colonoscopy at some point, unclear if may deferred as outpt. Abx metronidazole + cipro continue through the . Started on mesalamine Advance to BRAT diet and advance as tolerated. Data: * Enteric bacteriology panel negative for Campylobacter, Salmonella, Shigella with Shiga toxin, Yersinia, vibrio, rotavirus and norovirus. * WBC lactoferrin positive * C. difficile PCR negative. * Stool for Giardia antigen pending. * CT abdomen usually reviewed and shows small right paracolic gutter fluid may be due to microperforation. CT does not report microperforation but diffuse thickening of colon from transverse colon to rectum. * Lactic acid normal. * TTG, REFUGIO, autoimmune labs negative * Giardia negative * O+P pending. Plan Chronic conditions: * Chronic low blood pressure but does not meet diagnosis of hypotension: Usually patient blood pressure is in 100s or high 90s. Patient denies any dizziness lightheadedness or vertigo. She states her blood pressure has always been low. Continue IV fluid support and orthostatic blood pressure tomorrow AM. Blood pressure in 90s. No dizziness or symptoms of hypotension. * History of melanoma excision VTE prophylaxis: SCDs CODE STATUS full code. Medications at Discharge Home Medications ciprofloxacin HCl 500 mg tablet 500 mg PO BID #20 TABLETS 05/03/23 metronidazole 500 mg tablet 500 mg PO Q6H #40 tabs 05/03/23 acetaminophen 500 mg capsule 1,000 mg (2 x 500 mg) PO Q6H PRN pain #100 caps 05/08/23 dicyclomine 10 mg capsule 20 mg (2 x 10 mg) PO TIDAC #90 caps 05/08/23 mesalamine 400 mg capsule (with delayed release tablets inside) 400 mg PO TID #90 ea 05/08/23 ondansetron HCl 8 mg tablet 8 mg PO Q8H PRN nausea and vomiting #20 tabs 05/08/23 oxycodone 5 mg tablet 5 mg PO Q4H PRN PRN Pain Score 4-10 3 days #18 tabs 05/08/23 pantoprazole 40 mg tablet,delayed release 40 mg PO DAILY #30 tabs 05/08/23 Hospital Course Operations None Procedures None Summary of Care Provided Minutes Spent on Discharge: 40 Hospital Course: Jordan with 3-week course of abdominal pain and diarrhea. She had a CAT scan upon arrival that showed finding suggestive of colitis involving the left hemicolon. Minimal amount of free fluid in the right paracolic gutter. Patient underwent an extensive work-up in regards to this colitis in regards to testing. All testing had come back negative with exception of the ova and parasite which is still pending. Etiology of her colitis is still unclear. It has gotten better. Patient has been started on antibiotics and is unclear if the antibiotics have helped or not but she will continue with that completed 10-day course of antibiotics. Patient has been started on mesalamine by [facility]. Given the amount of inflammation that she has, its been advised that patient follow-up with gastroenterology for colonoscopy to hopefully identify the etiology of this colitis. Etiology still unclear as its still could be ischemic versus inflammatory or infectious. Weight / BMI Weight Weight: 62 kg Body Mass Index (BMI) 22.7 ABG / Lab / Microbiology Data 05/08/23 06:10 05/08/23 06:10 Laboratory: Laboratory Results - last 24 hr 05/05/23 22:15: Stl Giardia Antigen Negative 05/06/23 05:44: c-ANCA Antibody <1:20, Atypical p-ANCA <1:20, p-ANCA Antibody <1:20 05/08/23 06:10: WBC 9.3, RBC 4.56, Hgb 12.9, Hct 41.0, MCV 89.9, MCH 28.3, MCHC 31.5 L D, RDW Std Deviation 43.8, RDW Coeff of Audrey 13.3, Plt Count 362, MPV 8.3, Neut % (Auto) Not Reportable, Absolute Neuts (auto) 5.1, Absolute Lymphs (auto) 2.60, Total Counted 100, Neutrophils % (Manual) 48, Band Neutrophils % 7 H, Lymphocytes % (Manual) 28, Monocytes % (Manual) 15 H, Metamyelocytes % 2 H, Diff Path Review May , Platelet Estimate ADEQUATE, RBC Morphology NORM C+C, Sodium 139, Potassium 3.7, Chloride 110 H, Carbon Dioxide 24.0, Anion Gap 5, BUN 4 L, Creatinine 0.52 L, Estim Creat Clear Calc 112.58, Est GFR (MDRD) Af Amer 157, Est GFR (MDRD) Non-Af 130, BUN/Creatinine Ratio 7.6 L, Glucose 104, Calcium 8.1 L, Total Bilirubin 0.20, AST 31, ALT 23, Alkaline Phosphatase 66, Total Protein 5.8 L, Albumin 2.2 L, Globulin 3.6, Albumin/Globulin Ratio 0.6 L Microbiology: Microbiology 05/04/23 16:30 Stool Stool Lactoferrin - Final 05/04/23 16:30 Stool Enteric Bacteriology - Final 05/04/23 16:30 Stool C. difficile DNA Amplification - Final D/C Instructions Discharge Diet: Bananas, Rice, Applesauce and [place] (advance as tolerated slowly ) Return to work on: 05/15/23 Call your doctor if you observe: - (worsening blood in stool. worsening diarrhea. worsening abdominal cramps. ) Meaningful Use Info Meaningful Use Diagnoses (Choose all that apply): None applicable Discharge Plan Admission Admit Date/Time: 05/04/23 10:50 Primary Reason for Your Visit: colitis Attending Provider: Jorgito Brewer Primary Care Provider: Blake Carter STUDIO CAMERA OPERATOR Consulting Providers: Steve Skaggs Instructions Additional Instructions / Restrictions: Start with a bland (BRAT) diet and advance as tolerated. Take the antibiotics you had previously received and take those through the (it won't be necessary to take them all since you received the intravenous equivalents while in the hospital). Please follow up with gastroenterology in the next 1-2 months (Dr. Smith or Cullen). You will need a colonoscopy to find out what type of colitis you had. You may return to work on 05/15/2023. However, if you need more time off, please follow up with your PCP. Discharge Orders/Prescriptions Prescriptions: New dicyclomine 10 mg Capsule 20 mg PO TIDAC Qty: 90 0RF mesalamine 400 mg Capsule (With Del Rel Tablets) 400 mg PO TID Qty: 90 0RF pantoprazole 40 mg Tablet,Delayed Release (Dr/Ec) 40 mg PO DAILY Qty: 30 0RF oxycodone 5 mg Tablet 5 mg PO Q4H PRN PRN (Reason: Pain Score 4-10) 3 Days Qty: 18 0RF acetaminophen 500 mg capsule 1,000 mg PO Q6H PRN (Reason: pain) Qty: 100 0RF ondansetron HCl 8 mg tablet 8 mg PO Q8H PRN (Reason: nausea and vomiting) Qty: 20 0RF Continued metronidazole 500 mg tablet 500 mg PO Q6H Qty: 40 0RF ciprofloxacin HCl 500 mg tablet 500 mg PO BID Qty: 20 0RF Discontinued diphenoxylate-atropine 2.5-0.025 mg tablet 1 tab PO Q12H PRN (Reason: diarrhea) Patient Comments: TAKE 1 TABLET BY MOUTH TWICE A DAY FOR 10 DAYS NEEDED FOR LOOSE STOOL Referrals / Follow Up: Blake Carter STUDIO CAMERA OPERATOR, STUDIO CAMERA OPERATOR-C [Primary Care Provider] - Disposition Disposition (needs filled in before D/C Order can be placed): Home, Self Care Charges/Coding Visit Charges Inpatient E&M: 29891 Disch Hosp >30min
[2023-05-08 14:03] VITALS: BP 100/54; PULSE 99; RESP 18; TEMP 37; O2SAT 98
[2023-05-08 16:09] LABS: Calprotectin, Stool 1040 ug/g (0-120)
--- NOTE | 2023-05-08 16:17 | CHAPLAIN ---
Type of Pastoral Visit _x__ Initial Visit ___ Follow-up Visit ___ On-call Visit ___ General Patient Visit ___ Spiritual Assessment ___ Family Conference ___ Bereavement ___ Rapid Response ___ Code Blue ___ Other (describe below) Pastoral Care Referral From _x__ Patient ___ Family ___ Nurse ___ Physician ___ Trench Shovel Operator ___ Motor Builder Winder ___ Other (describe below) Sacrament/Intervention _x__ Active listening ___ Anointing ___ Restorationism ___ Bereavement ___ Communion _x__ Radha exploration ___ _x__ Life review _x__ Prayer ___ Reconciliation ___ Sacrament of Sick _x__ Supportive presence ___ Wedding ___ Other (describe below) Pastoral Comments patient and spouse together in the room; pt acknowledges that she is being discharged and feels better; pt does not know the underlying reason for her illness and will go home to recover fully and then have more procedures done to find answers; pt has good support for a large family network; pt however just wants to have some answers; pt welcomes spiritual care and prayers;
[2023-05-09 10:32] LABS: Pathologist Review Reviewed
== END 2023-05-08 14:21 | disposition home or self-care (01) | DRG 387 ==
LOC: ED 10:00 → MS3 05-06 06:44
PROVIDERS: Internal Medicine Gastroenterology; Admitting Provider Internal Medicine; Emergency Provider Emergency Medicine; PCP Nurse Practitioner Family
DX: K51.50 Left sided colitis without complications (principal); E87.6 Hypokalemia; I95.89 Other hypotension; F17.210 Nicotine dependence, cigarettes, uncomplicated; Z66 Do not resuscitate; Z51.5 Encounter for palliative care
CPT/HCPCS: 36415; 80048; 80053; 80076; 82728; 83605; 83615; 83630; 83735; 83993; 84100; 84703; 85025; 85652; 86140; 86225; 86235; 86256; 87177; 87209; 87329; 87493; 87506; 94668; 99252; 99285; J7030; J7050; J7120; A4216; G0463; J0744; J2405

== ENCOUNTER → 2023-06-24 | Outpatient (CLI) | payer OTHER, SELFPAY ==
[2023-06-24 17:58] LABS: Erythrocyte Sedimentation Rate 9 mm/hr (0-30)
[2023-06-24 18:12] LABS: CRP < 2.90 mg/L (0.0-3.0)
[2023-06-26 15:08] LABS: Endomysial Antibody IgA Negative (Negative); Immunoglobulin A 263 mg/dL (87-352); t-Transglutaminase IgA <2 U/mL (0-3)
== END | disposition home or self-care (01) ==
LOC: MTLAB 15:39
PROVIDERS: PCP Nurse Practitioner Family; Referring Provider Internal Medicine Gastroenterology; Visit Provider Internal Medicine Gastroenterology
DX: R19.7 Diarrhea, unspecified (principal)
CPT/HCPCS: 36415; 82784; 83516; 85652; 86140; 86255

== ENCOUNTER → 2023-06-26 | Outpatient (CLI) | payer OTHER, SELFPAY ==
[2023-07-03 01:07] LABS: Calprotectin, Stool 65 ug/g (0-120)
== END | disposition home or self-care (01) ==
PROVIDERS: PCP Nurse Practitioner Family; Referring Provider Internal Medicine Gastroenterology; Visit Provider Internal Medicine Gastroenterology
DX: R19.7 Diarrhea, unspecified (principal)
CPT/HCPCS: 83993

== ENCOUNTER 2023-08-05 09:22 | Inpatient (IN) | payer OTHER, SELFPAY ==
[2023-08-05] VITALS (7 sets, daily range): BP systolic 94–144; BP diastolic 62–89; PULSE 89–116; RESP 14–16; TEMP 36.7–37.6; O2SAT 98–99; BMI 20.8
--- NOTE | 2023-08-05 | IMM_PTH ---
PATIENT: MICHAEL ESPARZA LOC: [facility] U#:[id number] AGE/SX: 53/F ROOM: [facility] RE08/05/[address]: Dr. Edu Swan MD : 1970 BED: 1 DIS: 08/15/2023 SPEC #: [id number] RECD: 08/07/23 13:09 STATUS: JEFRY JANAK #: [id number] DANTE: 08/05/23 00:[address]: Vielka Blanchard DEPT: IMMUNOHISTOCHEMISTRY RECD BY: Yanely Abdalla ENTERED: 08/07/23 13:11 SP TYPE: IMMUNO OTHR DR: MD Blake Floyd, BAKELITE MOLDER-C Tissues: PARACENTESIS FLUID Procedures: RCC (add) NAPSIN A (add) CA-125 (add) Jaxson Ret (add) CEA (add) CK20 (add) CK7 (add) CK8 (add) HEP PAR (add) MACRO (add) WV (add) TTF1 (add) Vimentin (add) Pankeratin (add) ER (initial) PHYSICIAN & INSTITUTION [place] [id number] SPECIMEN INFORMATION: Tissue Source: Paracentesis fluid Clinical Info: Ascites Specimen Number: [id number] CPT code: 22938, 47076 x14 METHODOLOGY: Deparaffinized sections of prefer/formalin-fixed tissue or PAP/DQ stained slides are incubated with monoclonal/polyclonal antibodies/oligonucleotide probes. Localization is made via biotin free immunoperoxidase method. Appropriate controls are performed and reacted as expected. Results on target cell population are indicated in the following table: RESULTS: ANTIBODY / CLONE RESULT ER (6F11) negative WV (1E2) negative AE1-3 (AE1/AE3/PCK26) negative * CK7 (OV-TL12/30) negative * CK8 (93huajJ70) negative * CK20 (KS20.8) negative Vimentin (V9) negative * Macro (HAM-56) negative (positive in macrophages) TTF-1 (8G7G3/1) negative Napsin A (Rabbit Polyclonal) negative HepPar (OCh1E5) negative RCC (PN-15) negative CALRET (polyclonal) negative * CEA (11-7/TF-3HB-1) negative CA125 (OC125) negative * positive in mesothelial cells. These tests were developed and their performance characteristics determined by [facility]. They may not have been cleared or approved by the U.S. Food and Drug Administration. The FDA has determined that such clearance or approval is not necessary. The above immunohistochemical/dualISH markers are ordered and reviewed by the Pathologist. INTERPRETATION: Paracentesis fluid (cell block): Negative for malignant cells. SJ:laurie 08/08/2023
--- NOTE | 2023-08-05 | FLU_PTH ---
PATIENT: MICHAEL ESPARZA LOC: [facility] U#:[id number] AGE/SX: 53/F ROOM: [facility] RE08/05/[address]: Dr. Edu Swan MD : 1970 BED: 1 DIS: 08/15/2023 SPEC #: [id number] RECD: 08/05/23 14:23 STATUS: JEFRY JANAK #: [id number] DANTE: 08/05/23 00:[address]: Vielka Blanchard DEPT: CYTOLOGY RECD BY: Max Palomares ENTERED: 08/06/23 09:01 SP TYPE: Fluid OTHR DR: MD Blake Floyd, SENIOR IT ENGINEER-C Tissues: PARACENTESIS FLUID Procedures: Special Stain Group II Surgery Specimen Level IV Cytospin Fluid HEADER OPERATION: Ultrasound guided paracentesis PRE-OP DIAGNOSIS: Ascites TISSUE SUBMITTED: Paracentesis fluid for cytology DIAGNOSIS CYTOLOGY Paracentesis fluid for cytology (cytospin and cell block): Negative for malignant cells. See comment. DEB:laurie 08/07/2023 COMMENT Immunohistochemistry ([id number]) supports the above diagnosis. Clinical correlation and appropriate follow up are necessary. CYTOLOGY STUDY Slides are reviewed. CYTOLOGY GROSS Received is 80 ml of yellow cloudy fluid labeled with the patient's name and and designated per the requisition as paracentesis. Submitted for cytology preparation including cell block. / laurie 08/06/2023 TC: CPT: 37677, 39644
[2023-08-05 10:06] LABS: Differential Indicated MANUAL DIFF; Hematocrit 43.3 % (37-47); Hemoglobin 14.2 g/dL (12.0-15.0); Mean Corp Hgb Conc 32.8 g/dL (32-36); Mean Corpuscular Hgb 28.2 pg (27.0-32.0); Mean Corpuscular Volume 86.1 fL (81-99); Mean Platelet Vol. 7.9 fl (6.2-12.0); POSITIVE COUNT YES; POSITIVE MORPHOLOGY YES; Platelet Count 368 K/mm3 (150-450); RBC Distribution Width CV 13.5 % (11.6-14.6); RBC Distribution Width SD 42.4 fl (35.1-43.9); Red Blood Count 5.03 M/mm3 (4.2-5.4); White Blood Count 16.8 K/mm3 (4.4-11.0)
[2023-08-05] MEDS: 0.9% Normal Saline (1000mL) 1,000 ML 1000 ML IV (10:07)
[2023-08-05] MEDS: Morphine 2 MG/ML Syringe IV (10:07)
[2023-08-05] MEDS: Ondansetron 4 MG/2 ML Vial IV (10:07)
[2023-08-05 10:28] LABS: Neutrophil-Band 16 % (0-5); Neutrophil-Segmented 62 % (47-70); Total Cells Counted 100 (MANUAL DIFF)
[2023-08-05 10:29] LABS: Lymphocyte 14 % (19-41); Metamyelocyte 1 % (0-1); Monocyte 2 % (0-10); Myelocyte 5 % (0-0); Platelet Estimate ADEQUATE (ADEQ); Red Cell Morphology NORM C+C NORMAL (NORM C&C)
[2023-08-05 10:30] LABS: Absolute Lymphocyte Count 2.35 X10^3/uL (0.83-4.51); Absolute Neutrophil Count 13.1 X10^3/uL (2.0-7.7)
[2023-08-05 10:32] LABS: ALB/GLOB Ratio 0.7 RATIO (0.9-2.4); AST(SGOT) 15 U/L (15-37); Alanine Aminotransfer ALT/SGPT 16 U/L (13-56); Albumin, Serum 2.5 g/dL (3.2-5.0); Alkaline Phosphatase 64 U/L (45-117); Anion Gap 9 (5-15); BUN 12 mg/dL (7-18); BUN/Creat Ratio 17.9 RATIO (10-20); Calcium,Total 7.7 mg/dL (8.5-10.1); Chloride 99 mmol/L (98-107); Creatinine, Serum 0.67 mg/dL (0.55-1.02); EST Glomerular Filtration Rate 98 mL/min (>60); Est Glom Filt Rate - Afr Amer 118 mL/min (>60); Globulin 3.5 g/dL (2.2-4.2); Glucose 101 mg/dL (74-106); Lipase 69 U/L (13-75); Potassium 3.9 mmol/L (3.5-5.1); Sodium Level 132 mmol/L (136-145)
[2023-08-05 10:51] LABS: Lactic Acid 1.2 mmol/L (0.4-1.9)
--- NOTE | 2023-08-05 10:53 | EX.ED.DYSGE1 ---
HPI History of Present Illness Chief Complaint: Abd Pain Detail of Chief Complaint: Increased abdominal girth and pain since Thanks Informant: patient and spouse/S.O. Onset/Context/Timing Onset: Weeks Context: Sudden Onset Timing: Continuous Quality: Distention, sensation of fullness, nausea Location: Abdomen, generalized Current Severity: Mild Maximum Severity: Moderate Worsened by: Nothing specific Relieved by: Nothing Associated Symptoms Associated Symptoms: Nausea and possibly weight loss and also night sweats for 2 months Narrative Narrative: Patient is a 53-year-old woman who is a smoker of half pack per day. She presents with increased abdominal girth, fullness, discomfort, nausea with night sweats. GI symptoms started approximate around . Night sweats for 2 months. She has an IUD in place. She denies symptoms of . She denies history of liver disease. She denies history of cancer. She denies dysuria, frequency, urgency or hematuria. She denies change in color of her urine or stool. She had a bowel movement this morning. It was slightly harder than normal and smaller than normal. Patient states she had a CAT scan a year ago for abdominal pain and was normal. Review of prior records indicates history of melanoma. Prior similar symptoms: No PFSH PFSH Medical History Cancer Colitis Melanoma Home Medications Lactobacillus acidophilus 10 billion cell capsule (NewFlora) 10,000 mmu cells PO DAILY 08/05/23 [History Last Taken 08/04/23] bisacodyl 5 mg tablet,delayed release (Alophen (bisacodyl)) 5 mg PO Q6H PRN constipation 08/05/23 [History Last Taken 08/04/23] budesonide 3 mg capsule,delayed,extended release 3 mg PO Q8H 08/05/23 [History Last Taken 08/05/23] Allergy/AdvReac Type Severity Reaction Status Date / Time sulfamethoxazole Allergy Severe Swelling Verified 08/05/23 09:23 [From Bactrim] trimethoprim [From Bactrim] Allergy Severe Swelling Verified 08/05/23 09:23 Surgical History Hx of section Hx of melanoma excision Social History (Updated 08/05/23 @ 10:[address] Willi Frausto MD) household members: spouse Smoking Status: Current every day smoker tobacco type: cigarettes alcohol intake: former substance use type: does not use ROS ROS ED Constitutional Constitutional ED: Reports sweats and weight loss; Denies chills, fever(s) or subjective Eyes Eyes: Denies blurry vision, change in vision or diplopia ENT ENT ED: Denies ear pain, rhinorrhea or sore throat Cardiovascular Cardiovascular: Denies chest pain, orthopnea, palpitations, paroxysmal nocturnal dyspnea or racing heartbeat Respiratory/Chest Respiratory/Chest: Reports cough and other Details: Patient states she has a smoker's cough. ; Denies dyspnea, dyspnea on exertion, orthopnea, paroxysmal nocturnal dyspnea or sputum Gastrointestinal Gastrointestinal: Reports abdominal pain and nausea; Denies constipation, diarrhea, melena or vomiting Genitourinary Genitourinary ED: Denies dysuria, hematuria or urinary frequency Musculoskeletal Musculoskeletal: Denies arthralgias, back pain, myalgias or neck pain Integumentary Denies Abrasions or rash Neurologic Neurologic: Denies headache(s), paresthesias or weakness Psychiatric Psychiatric: Denies anxiety or depression Endocrine Endocrinology: Denies cold intolerance or heat intolerance Hematologic/Lymphatic Hematologic/Lymphatic: Reports systems reviewed and no addt'l complaints, except as documented EXAM Physical Exam Const Vital Signs: 08/05/23 09:23 Temperature 98.7 F Temperature Source Temporal Pulse Rate 114 H Respiratory Rate 16 Blood Pressure 113/74 Blood Pressure Mean 87 Pulse Ox 99 Oxygen Delivery Method Room Air Positive well developed Constitutional Narrative: Patient does not appear well. Vital signs are marked for tachycardia. General Appearance ED: well developed and pallor; Negative for cyanotic, diaphoretic or NAD HEENT Reports dry mucous membranes HEENT Narrative: Head is atraumatic and normocephalic. Ears are normal. Posterior pharynx is normal. Nares patent with no discharge. Mouth ED: Yes dry mucous membranes Mouth: dry mucous membranes Eyes PERRL and EOMs intact bilaterally General Eye ED: Negative for pale conjunctiva or scleral icterus Neck no lymphadenopathy, supple and no JVD Chest Wall inspection of chest normal and palpation of chest normal Resp normal respiratory effort and clear to auscultation bilaterally Cardio regular rhythm, S1 normal heart sound, S2 normal heart sound and no murmurs Rate: tachycardic GI no masses; Negative for non-tender, non-distended or hepatosplenomegaly GI Narrative: Patient appears to have a fluid wave and shifting dullness to percussion. This would raise concern for ascites. Inspection: abdominal distention Auscultation: hyperactive bowel sounds Palpation: soft and tender other (Tenderness throughout.); Negative for guarding, splenomegaly, mass or rebound tenderness present Back/Spine no CVA tenderness Thoracic Spine / Upper Back: Negative for thoracic spinal tenderness Lumbar Spine / Lower Back: Negative for lumbar spinal tenderness Extremity normal to inspection Extremity Narrative: There is mild pitting edema of the lower extremities. 1 to 2 mm General Extremety ED: Yes edema; Negative for tenderness General Extremity: edema Neuro oriented x3 and CN's II-XII intact bilaterally Sensorium / Orientation: alert Motor Exam: strength 5/5 throughout Psych Mood & Affect: depressed Skin no rashes or lesions noted, no wounds and No skin turgor normal General Skin Exam: elasticity normal and pallor; Negative for jaundice MDM MDM MDM Narrative Medical decision making narrative: Differential diagnoses include ascites, malignancy, if she does have ascites do not believe that she at this time has spontaneous bacterial peritonitis. Since patient has a significant white count with shift will obtain CT of the abdomen and pelvis to determine etiology of her abdominal pain and findings. History & Record Review Discussion w/independent historian: Patient and Significant other Additional record(s) reviewed:: Prior outpatient record Lab Data Attestation: I reviewed the patient's lab results. Lab results narrative: White count is elevated 16.8 thousand with shift. There is 62% neutrophils and 60% bands. There is also metamyelocytes and myelocytes noted. Comprehensive metabolic panel reveals an albumin of 2.5 and globulin 3.5. Lactate is normal at 1.2. Transaminases are normal. Labs: Laboratory Results - last 24 hr 08/05/23 08/05/23 08/05/23 09:35 10:15 11:15 WBC 16.8 H RBC 5.03 Hgb 14.2 Hct 43.3 MCV 86.1 MCH 28.2 MCHC 32.8 RDW Std Deviation 42.4 RDW Coeff of Audrey 13.5 Plt Count 368 MPV 7.9 Neut % (Auto) Not Reportable Absolute Neuts (auto) 13.1 H Absolute Lymphs (auto) 2.35 Total Counted 100 Neutrophils % (Manual) 62 Band Neutrophils % 16 H Lymphocytes % (Manual) 14 L Monocytes % (Manual) 2 Metamyelocytes % 1 Myelocytes % 5 H Diff Path Review May foll Platelet Estimate ADEQUATE RBC Morphology NORM C+C Sodium 132 L Potassium 3.9 Chloride 99 Carbon Dioxide 24.0 Anion Gap 9 BUN 12 Creatinine 0.67 Est GFR (MDRD) Af Amer 118 Est GFR (MDRD) Non-Af 98 BUN/Creatinine Ratio 17.9 Glucose 101 Lactic Acid 1.2 Calcium 7.7 L Total Bilirubin 0.40 AST 15 ALT 16 Alkaline Phosphatase 64 Total Protein 6.0 L Albumin 2.5 L Globulin 3.5 Albumin/Globulin Ratio 0.7 L Lipase 69 Urine Color Yellow Urine Clarity Clear Urine pH 7.0 Ur Specific [place] 1.005 Urine Protein Negative Urine Glucose (UA) Normal Urine Ketones 15 H Urine Occult Blood Negative Urine Nitrite Negative Urine Bilirubin Negative Urine Urobilinogen Normal Ur Leukocyte Esterase Negative Urine RBC 0 SEEN Urine WBC 0 SEEN Ur Squamous Epith Cells 0 SEEN Urine Bacteria 0 SEEN Urine Mucus 0 SEEN Radiography Diagnostic Testing: Clinical Impression(s) from Imaging Studies Abdomen/Pelvis CT 08/05/23 10:59 IMPRESSION: Diffuse ascites. Diffuse inflammatory changes seen throughout the colon worse in the right hemicolon with dilatation of the ascending colon. Fibroid uterus. IUD is seen within the uterus. Stable bilateral renal cysts. Electronically Signed: Ted Membreno MD at 12:36 EST , Management Discussion w/another healthcare provider: Hospitalist (Spoke with Dr. Norah Wild was made aware patient. She was made aware that ultrasound-guided paracentesis was ordered with diagnostic tests.) and Other (Spoke with her operator cavity pump Dr. Owen Subramanian. 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 His concern was C. difficile. He was informed of her findings.) Treatment and Re-Evaluation :: Patient was reassessed at 08/26/2004. She still feels bloated. She does not have peritoneal findings. Will obtain blood culture since she does have elevated white count with significant shift. She was started on Zosyn. Will also obtain VBG because patient does have delayed capillary refill with slight mottling. Discharge Plan Triage Chief Complaint: Abd Pain ED Provider: Willi Frausto Dx/Rx/DC Orders Prescriptions: No Action budesonide 3 mg capsule,delayed,extend.release 3 mg PO Q8H NewFlora 10 billion cell capsule 10,000 mmu cells PO DAILY bisacodyl [Alophen (bisacodyl)] 5 mg tablet,delayed release (DR/EC) 5 mg PO Q6H PRN (Reason: constipation) Primary Care Provider: Blake Carter NP Referrals: Blake Carter NP, [facility] [Primary Care Provider] -
--- NOTE | 2023-08-05 10:59 | CT_ITS ---
STUDY: CT ABDOMEN AND PELVIS WITH CONTRAST REASON FOR EXAM: Female, 53 years old. Distention, leukocytosis, concern for malignancy -- IV PO Contrast RADIATION DOSAGE (If Supplied By Facility): CTDIvol = ( 9.46 ) mGy, DLP = ( 453.50 ) mGycm TECHNIQUE: Transaxial images were obtained from the dome of the diaphragm to the symphysis pubis with oral contrast. Oral and IV Gastrografin and 100mL Isovue-300 was administered. Sagittal and coronal images were reconstructed. Individualized dose optimization techniques were used for this CT. COMPARISON: Comparison is made with prior study dated May 03, 2023. FINDINGS: The visualized lung bases are unremarkable. The visualized portions of the heart are within normal limits. Diffuse abdominal and pelvic ascites. Once again, scattered cysts are seen in the right lobe of the liver. The largest cyst measures 1.3 cm x 1.3 cm. This is in the anterior dome of the liver. Normal gallbladder and extrahepatic biliary system. Normal spleen. Normal pancreas. Normal bilateral adrenal glands. Stable 2.8 cm x 3 cm cyst in the upper pole of the right kidney. Tiny cyst in the midportion of the left kidney. Normal visualized stomach. Normal small intestine. Diffuse inflammatory changes of the colon worse in the right hemicolon. The descending colon is distended and measures 7 cm in transverse dimension. Diffuse colitis should be ruled out. Normal abdominal aorta. Normal inferior vena cava. Normal retroperitoneum. Normal urinary bladder. IUD is seen within a fibroid uterus. Normal abdominal wall. Dextroscoliosis. CT/Abdomen/Pelvis WITH Contrast IMPRESSION: Diffuse ascites. Diffuse inflammatory changes seen throughout the colon worse in the right hemicolon with dilatation of the ascending colon. Fibroid uterus. IUD is seen within the uterus. Stable bilateral renal cysts. Electronically Signed: Ted Membreno MD at 12:36 EST ,
[2023-08-05 11:37] LABS: Bacteria 0 SEEN /hpf (None Seen); Mucous, Urine 0 SEEN /hpf (<or=2+); Red Blood Cells-Urine 0 SEEN /hpf (0-5); Squamous Epithelial Cells - UA 0 SEEN /hpf (5-10); White Blood Cells 0 SEEN /hpf (0-5)
[2023-08-05 11:40] LABS: Color, Urine Yellow (Yellow); Glucose, Dipstick Normal (Normal); Ketone-Dipstick 15 mg/dl (Negative); Leukocyte Esterase-Dipstick Negative /ul (Negative); Nitrite-Dipstick Negative (Negative); Occult Blood-Urine Negative /ul (Negative); Protein-Dipstick Negative (Negative); Specific Gravity, Urine 1.005 (1.002-1.030); Urine Bilirubin Dipstick Negative (Negative); Urine Clarity Clear (Clear); Urine Urobilinogen Normal (Normal)
[2023-08-05] MEDS: Piperacil/Tazobactam 4.5 GM in 0.9% Normal Saline (100mL MB+) 100 ML IV (13:04)
--- NOTE | 2023-08-05 13:33 | PCM.HP.STD ---
HPI - General General Date of Admission: 08/05/23 Date of Service: 08/05/23 Chief Complaint: Increasing abd distention, SOB, night sweats HPI Narrative MICHAEL ESPARZA, is a 53-year-old female with history of melanoma, microscopic colitis, and tobacco use presented to [facility] 08/05/2023 with increasing abdominal girth, fullness, discomfort, and nausea since with night sweats over 2 months. In ED pt w/ HR 114 and BP 113/74, wbc 16 w/ left shift. Liver panel within normal limits and creatinine 0.67, sodium slightly low at 132 but lab workup otherwise unremarkable. CT abdomen pelvis obtained which demonstrated diffuse ascites, diffuse inflammatory changes throughout the colon worse in the right hemicolon with dilation of the ascending colon. There was concern for SBP given her leukocytosis with left shift and symptoms so she was started on Zosyn and paracentesis with studies ordered in ED. ED physician also spoke with her GI doctor, Dr. Berman who was updated. Given the above hospitalist contacted for admission. Patient seen at bedside and reports that she has had some night sweats and possible weight loss over the past couple of months, she did have some symptoms of an ear infection shortly before and got 5 days of antibiotics and her symptoms improved but she began to have abdominal distention so she stopped after 5 days and she also stopped her budesonide which she was taking previous in case this was contributing. Her abdominal distention continued to worsen however in about 10 days ago her PCP gave her 7 days of prednisone and a PPI but again symptoms worsened and now it is uncomfortable for her to sit and stand and it is hard to work and her abdominal distention is making it hard to breathe prompting her presentation to the emergency department. She reports that if anything she has been somewhat constipated and has abdominal discomfort without overt pain, has had problems with swelling in the past after changing her control pills and after this is always gone away on its own. Denies alcohol use, smokes 7 to 10 cigarettes a day and denies substance use. Has taken various supplements in the past but denies any change in supplements recently aside from a probiotic. Did start taking her budesonide again recently after being off of it but has not noticed improvement. Patient said she feels that her skin is almost hanging off of her but she is not sure about actual weight loss since she has been having increased abdominal girth. No problems with urination, feels that she has some altered sensation kind of diffusely and some dry skin, denies any nausea or vomiting. [facility] Medical History Cancer Colitis Melanoma Home Medications Lactobacillus acidophilus 10 billion cell capsule (NewFlora) 10,000 mmu cells PO DAILY 08/05/23 [History Last Taken 08/04/23] bisacodyl 5 mg tablet,delayed release (Alophen (bisacodyl)) 5 mg PO Q6H PRN constipation 08/05/23 [History Last Taken 08/04/23] budesonide 3 mg capsule,delayed,extended release 3 mg PO Q8H 08/05/23 [History Last Taken 08/05/23] Allergy/AdvReac Type Severity Reaction Status Date / Time sulfamethoxazole Allergy Severe Swelling Verified 08/05/23 09:23 [From Bactrim] trimethoprim [From Bactrim] Allergy Severe Swelling Verified 08/05/23 09:23 Surgical History Hx of section Hx of melanoma excision Social History (Updated 08/05/23 @ 10:[address] Willi Frausto MD) household members: spouse Smoking Status: Current every day smoker tobacco type: cigarettes alcohol intake: former substance use type: does not use ROS ROS Narrative General: Has had some night sweats and possible weight loss HENT: Has had some stuffy nose and sore throat EYES: Has some blurry vision Resp: Has increasing shortness of breath and slight cough over the weekend that worsens her abdominal discomfort Cardiac: Denies chest pain GI: Some constipation, abdominal discomfort, no nausea or vomiting : Denies changes in urination Extremity: Denies swelling of extremities MSK: Denies weakness Neuro: Feels that she has altered sensation somewhat diffusely Heme: Denies any bleeding or bruising Skin: Denies rashes Psychiatric: No complaints voiced Vital Signs Vital Signs Vital Signs: 08/05/23 09:23 Temperature 98.7 F Temperature Source Temporal Pulse Rate 114 H Respiratory Rate 16 Blood Pressure 113/74 Blood Pressure Mean 87 Pulse Ox 99 Oxygen Delivery Method Room Air Physical Exam Narrative General: Alert, oriented, no apparent distress HEENT: Atraumatic, normocephalic Eyes: Anicteric, normal conjunctiva, extraocular movements grossly intact Neck: Supple, no overt diffuse lymphadenopathy Respiratory: Clear to auscultation bilaterally, normal respiratory effort Cardiovascular: Regular rate and rhythm GI: Distended, no rebound, guarding, rigidity, hypoactive bowel sounds Extremities: No edema Musculoskeletal: Moving all extremities Neuro: No overt focal neurological deficits Skin: No rashes appreciated Psych: Cooperative Results Lab / Micro Data 08/05/23 09:35 08/05/23 09:35 Labs: Laboratory Results - last 24 hr 08/05/23 09:35: WBC 16.8 H, RBC 5.03, Hgb 14.2, Hct 43.3, MCV 86.1, MCH 28.2, MCHC 32.8, RDW Std Deviation 42.4, RDW Coeff of Audrey 13.5, Plt Count 368, MPV 7.9, Neut % (Auto) Not Reportable, Absolute Neuts (auto) 13.1 H, Absolute Lymphs (auto) 2.35, Total Counted 100, Neutrophils % (Manual) 62, Band Neutrophils % 16 H, Lymphocytes % (Manual) 14 L, Monocytes % (Manual) 2, Metamyelocytes % 1, Myelocytes % 5 H, Diff Path Review December, Platelet Estimate ADEQUATE, RBC Morphology NORM C+C, Sodium 132 L, Potassium 3.9, Chloride 99, Carbon Dioxide 24.0, Anion Gap 9, BUN 12, Creatinine 0.67, Est GFR (MDRD) Af Amer 118, Est GFR (MDRD) Non-Af 98, BUN/Creatinine Ratio 17.9, Glucose 101, Calcium 7.7 L, Total Bilirubin 0.40, AST 15, ALT 16, Alkaline Phosphatase 64, Total Protein 6.0 L, Albumin 2.5 L, Globulin 3.5, Albumin/Globulin Ratio 0.7 L, Lipase 69 08/05/23 10:15: Lactic Acid 1.2 08/05/23 11:15: Urine Color Yellow, Urine Clarity Clear, Urine pH 7.0, Ur Specific [place] 1.005, Urine Protein Negative, Urine Glucose (UA) Normal, Urine Ketones 15 H, Urine Occult Blood Negative, Urine Nitrite Negative, Urine Bilirubin Negative, Urine Urobilinogen Normal, Ur Leukocyte Esterase Negative, Urine RBC 0 SEEN, Urine WBC 0 SEEN, Ur Squamous Epith Cells 0 SEEN, Urine Bacteria 0 SEEN, Urine Mucus 0 SEEN Imagaing Radiology Impression Abdomen/Pelvis CT 08/05/23 10:59 IMPRESSION: Diffuse ascites. Diffuse inflammatory changes seen throughout the colon worse in the right hemicolon with dilatation of the ascending colon. Fibroid uterus. IUD is seen within the uterus. Stable bilateral renal cysts. Electronically Signed: Ted Membreno MD at 12:36 EST , Assessment & Plan Assessment/Plan (1) Abdominal distension: PLAN: Plan #Abdominal distention with ascites and colonic inflammation -Patient denies history of liver problems or having this swelling outside of changing control pills for -CT did show some liver cysts which have been demonstrated before with the largest 1.3 cm x 1.3 cm with diffuse ascites and diffuse inflammatory changes seen throughout the colon worse in right hemicolon with dilation of the ascending colon -Patient additionally has leukocytosis with left shift -Paracentesis ordered with cytology, culture, fluid studies -Patient started on Zosyn, given concern for potential infected ascitic fluid but also inflammation of the colon will continue Zosyn at this time -Will check limited echo for EF, was on budesonide but this was not helping and had been off for a period of time, seems that she was on this for history of swelling after and after switching control. Can consider IV Lasix pending results and symptoms -Will check BNP, CEA, CA125, CA 19?9, ESR, CRP -Can consider GI consult moving forward however we will first obtain paracentesis and fluid studies -Of note did have colitis in June and was treated with antibiotics and mesalamine, symptoms different than they were at that time-also her GI physician Dr. Subramanian indicated she has microscopic colitis -No diarrhea so no indication for C. difficile or GI pathogen testing # Hyponatremia -Could be volume overload or hepatic in nature, additionally patient was recently on steroids -Will check urine studies and serum and urine osmole's though given she is recently started back on budesonide unclear how accurate this will be -Asymptomatic, repeat in the a.m. #Tobacco use -Advise cessation #DVT ppx: Lovenox subcu Norah Wild, MD Time spent in the patient's overall evaluation,decision-making process, review of diagnostic data, adjustment of management, discussion with other providers, nursing nursing and ancillary staff involved in patient's care documentation, 56 minutes Charges/Coding Visit Charges Inpatient E&M: 72318 Init Hosp L2
--- NOTE | 2023-08-05 13:41 | ECHOL_ITS ---
Reason For Study: Dyspnea/SOB Procedure This was a limited 2D transthoracic echocardiogram. Exam performed portable in ED. Left Ventricle Normal LV size. The estimated ejection fraction is 55 %. Unable to assess diastolic dysfunction. No regional wall motion abnormalities noted. Right Ventricle Normal RV size. Normal systolic function. Atria Normal left atrium. Normal right atrium. Mitral Valve There is no mitral valve stenosis. No mitral valve insufficiency. Tricuspid Valve There is no tricuspid stenosis. Trivial tricuspid valve insufficiency. Pulmonary artery systolic pressure is 20 mmHg. Aortic Valve Trisinus/trileaflet aortic valve. There is no aortic stenosis. No aortic valve insufficiency. Pulmonic Valve not assessed. Great Vessels Normal aortic root. Pericardium/Pleural Small pericardial effusion. MMode/2D Measurements & Calculations LVIDd: 4.8 cm IVSd: 0.62 cm LA dimension: 2.8 cm LVIDs: 3.0 cm LVPWd: 0.64 cm RVDd: 3.4 cm FS: 36.6 % Doppler Measurements & Calculations TR max eliza: 202.3 cm/sec TR max P.4 mmHg ECHO/Echo, Limited Study Interpretation Summary The estimated ejection fraction is 55 %. Unable to assess diastolic dysfunction. Small pericardial effusion. Ordering Physician: Norah Wild Performed By: Chapin Kimble RCS
[2023-08-05] MEDS: Lidocaine 2% (20 ml mdv) 20 ML Vial (14:02)
--- NOTE | 2023-08-05 14:19 | PRO.PCM_ITS ---
Procedure Report Date of Procedure: 08/05/23 Assessment & Plan Assessment/Plan (1) Ascites: QUALIFIERS: Ascites type: other type Qualified Code(s): R18.8 - Other ascites PLAN: PROCEDURE: Ultrasound guided paracentesis ORDERING PROVIDER: Dr. Frausto INDICATION: Female, 53 years old. Ascites. PROVIDER: TAYLER Raymond TECHNIQUE: The risks, benefits, and alternatives to the procedure were explained to the patient. The specific risks of bleeding, infection, and damage to bowel were detailed and accepted. Witnessed informed consent was obtained. The abdomen was ultrasonographically surveyed. An appropriate pocket of fluid was identified in the right lower quadrant. The skin was prepped with Betadine swabs and sterile field established. 2% lidocaine was used for local anesthetic. Using ultrasound guidance, the peritoneal cavity was accessed with a 5-Panamanian paracentesis needle/catheter system. The trocar was removed. A total of 400 ml of clear yellow colored fluid was removed from the peritoneal cavity. 100 mL of this fluid was collected and sent to the laboratory for analysis, as per requesting physician. The catheter was removed and a sterile dressing was applied. The procedure was well tolerated. IMPRESSION: Successful ultrasound-guided paracentesis with right lower quadrant access site. Procedures Radiology Radiology US Procedures: [id number] Paracentesis
[2023-08-05 14:23] LABS: Cytology, Body Fluid / CSF SEE PATHOLOGY REPORT
[2023-08-05 14:45] LABS: Body Fluid Mononuclear WBC # 0.356 10^3/uL; Body Fluid Mononuclear WBC % 59.4 %; Body Fluid Polynuclear WBC # 0.243 10^3/uL; Body Fluid Polynuclear WBC % 40.6 %; Body Fluid Total Cells Counted 0.655 10^3/ul; White Blood Count/Body Fluid 0.599 10^3/uL
[2023-08-05 14:46] LABS: LDH 273 U/L (84-246)
[2023-08-05 15:04] LABS: Osmolality, Serum 279 mOsm/KG (275-295)
[2023-08-05 15:06] LABS: Glucose, Body Fluid 102 mg/dL (40-70); LDH,Body Fluid 98 Units/L (Not Establ.)
[2023-08-05 15:10] LABS: Erythrocyte Sedimentation Rate 8 mm/hr (0-30)
[2023-08-05 15:14] LABS: Appearance/Body Fluid CLEAR; Color/Body Fluid YELLOW; Red Cell Count/Body Fluid 315 /mm3; Source- Body Fluid PERITONEAL FLUID
[2023-08-05 15:20] LABS: Lymphocytes 15 %; Macrophages 35 %; Mesothelial Cells 2 %; Monocytes 1 %; Neutrophil (Segs) 47 %
[2023-08-05 15:21] LABS: BNP,B-Type NATRIURETIC PEPTIDE < 2.0 pg/mL (0-100)
[2023-08-05] MEDS: oxyCODONE 5 MG Tablet PO (21:37)
[2023-08-05] MEDS: Piperacil/Tazobactam 3.375 GM in 0.9% Normal Saline (50mL MB+) 50 ML IV (21:38)
[2023-08-05] MEDS: Senna/Docusate Sodium 1 Tablet 2 TABLET PO (22:46)
[2023-08-06] MEDS: MELATONIN 3 MG TABLET PO (00:04)
[2023-08-06 00:15] VITALS: BMI 20.8
[2023-08-06 03:46] LABS: Absolute Lymphocyte Count 2.14 X10^3/uL (0.83-4.51); Absolute Neutrophil Count 8.1 X10^3/uL (2.0-7.7); Basophil# 0.05 X10^3/uL; Basophil% 0.4 % (0-1); Eosinophil# 0.02 X10^3/uL; Eosinophils% 0.2 % (0-5); Hematocrit 36.8 % (37-47); Hemoglobin 12.1 g/dL (12.0-15.0); Lymphocyte # 2.14 X10^3/ul (0.83-4.51); Lymphocyte % 18.5 % (19-41); Mean Corp Hgb Conc 32.9 g/dL (32-36); Mean Corpuscular Hgb 28.5 pg (27.0-32.0); Mean Corpuscular Volume 86.8 fL (81-99); Mean Platelet Vol. 7.7 fl (6.2-12.0); Monocyte# 0.83 X10^3/uL; Monocyte% 7.2 % (0-10); NRBC Flagged by Analyzer 0 % (0-5); Neutrophil # 8.13 X10^3/uL (2.7-7.7); Neutrophil % 70.2 % (47-70); Platelet Count 307 K/mm3 (150-450); RBC Distribution Width CV 13.8 % (11.6-14.6); RBC Distribution Width SD 43.8 fl (35.1-43.9); Red Blood Count 4.24 M/mm3 (4.2-5.4); White Blood Count 11.6 K/mm3 (4.4-11.0)
[2023-08-06 04:00] VITALS: BP 80/62; PULSE 95; RESP 16; TEMP 36.6; O2SAT 95
[2023-08-06 04:24] LABS: ALB/GLOB Ratio 0.8 RATIO (0.9-2.4); AST(SGOT) 13 U/L (15-37); Alanine Aminotransfer ALT/SGPT 11 U/L (13-56); Albumin, Serum 2.1 g/dL (3.2-5.0); Alkaline Phosphatase 52 U/L (45-117); Anion Gap 9 (5-15); BUN 13 mg/dL (7-18); BUN/Creat Ratio 27.2 RATIO (10-20); Chloride 105 mmol/L (98-107); Creatinine, Serum 0.48 mg/dL (0.55-1.02); EST Glomerular Filtration Rate 144 mL/min (>60); Est Glom Filt Rate - Afr Amer 174 mL/min (>60); Estimated Creatinine Clearance 120.22 ml/min; Globulin 2.7 g/dL (2.2-4.2); Glucose 80 mg/dL (74-106); Magnesium 2.3 mg/dL (1.6-2.6); Phosphorus 3.6 mg/dL (2.5-4.9); Potassium 3.7 mmol/L (3.5-5.1); Protein, Total 4.8 g/dL (6.4-8.2); Sodium Level 135 mmol/L (136-145); Thyroid Stim Hormone (TSH) 4.61 uIU/mL (0.358-3.74)
[2023-08-06 04:43] LABS: International Normalized Ratio 1.3; Prothrombin Time (Protime)PT. 15.9 SECONDS (11.7-14.9)
[2023-08-06 05:37] VITALS: BMI 20.8
[2023-08-06] MEDS: Piperacil/Tazobactam 3.375 GM in 0.9% Normal Saline (50mL MB+) 50 ML IV ×3 (06:25→21:50)
[2023-08-06] MEDS: oxyCODONE 5 MG Tablet PO ×2 (06:35→11:36)
--- NOTE | 2023-08-06 08:19 | US_ITS ---
STUDY: ULTRASOUND OF THE FEMALE PELVIS - COMPLETE REASON FOR EXAM: Female, 53 years old. Ascites -- want to evaluate ovaries LMP: Unknown TECHNIQUE: Transabdominal and Transvaginal TECHNICAL QUALITY: Adequate. COMPARISON: None. FINDINGS: The uterus is retroflexed and is in a midline position. The uterus measures 8.6 cm x 5.1 cm x 4.9 cm. Normal uterine cervix. The endometrium measures 5.0 mm in thickness, and is hyperechoic. There is no demonstrated endometrial mass. 3 fibroids are seen. The largest measures 2.5 cm x 2.4 cm x 2.1 cm. I.U.D. - The patient does have an I.U.D. Right ovary is not visualized. Left ovary is not visualized. There is a moderate amount of fluid in the cul-de-sac. US/Transvaginal Non- IMPRESSION: Fibroid uterus. Fluid in the pelvis. IUD is seen within the endometrium. Electronically Signed: Ted Membreno MD at 10:24 EST ,
[2023-08-06 09:13] VITALS: BP 95/79; PULSE 106; RESP 16; TEMP 36.9; O2SAT 96
[2023-08-06 10:12] LABS: Urea Nitrogen, Urine 189 mg/dL (NO RANGE EST.); Urine Chloride < 10 mmol/L (Not Establ.); Urine Sodium 18 mmol/L (Not Establ.)
[2023-08-06 10:17] LABS: Osmolality, Urine 138 mOsm/KG
[2023-08-06 11:31] VITALS: BP 108/71; PULSE 111; RESP 16; TEMP 36.9; O2SAT 98
[2023-08-06] MEDS: Senna/Docusate Sodium 1 Tablet 2 TABLET PO (11:37)
--- NOTE | 2023-08-06 12:35 | CASEMGMT ---
RN CM Face to Face with patient for initial transition planning/care coordination assessment. RN CM introduced self and role at [facility]. Patient lying in bed, alert and oriented, daughter at bedside. Patient willing to participate in assessment and is able to answer all questions appropriately. Care providers, pharmacy, and demographics verified. Patient wishes to discharge home, denies need for home health at this time. Patient states she has no further needs or concerns at this time. CM to follow for discharge planning needs that may arise. PCP: Raul SURVEILLANCE DUAL RATE OFFICER Specialists: POLLY Berman Preferred Pharmacy: [facility] Insurance: [employer] Prescription Benefit: yes Living Will/HPOA: yes, Faisal Cuellar LNOK: Living Arrangements: Patient lives alone in a single story home with 1 step and railing to enter the home. Patient is independent at home. Transportation: self, DME/HHC: Patient denies DME in the home. No previous HHC or SNF Disposition Plan: Patient to discharge home with family support and follow-up plans in place. Michelle LINN, RN, CM
[2023-08-06 12:44] LABS: Pathologist Comment/Body Fluid Reviewed
[2023-08-06 12:50] LABS: Pathologist Review Reviewed
[2023-08-06 13:08] LABS: Auto B Fluid Analyzer BKGD Ct COUNTS W/IN LIMITS (W/IN LIMITS)
--- NOTE | 2023-08-06 14:02 | PN_ITS ---
Subjective Subjective Patient seen and examined. is by bedside. She was admitted with a complaint of new onset ascites yesterday. She states is much less distended. She had paracentesis yesterday with removal of 400 cc of fluid. She admits to weight loss. She denies any vaginal bleeding and has no other complaints. Review of systems is negative. Objective Data Objective Data Vital Signs: Vital Signs Temp Pulse Resp BP Pulse Ox O2 Del Method 98.5 F 111 H 16 108/71 98 Room Air 08/06/23 11:31 08/06/23 11:31 08/06/23 11:31 08/06/23 11:31 08/06/23 11:31 08/06/23 11:31 Oxygen Delivery Method Room Air Weight: 125 lb 3.561 oz Body Mass Index (BMI) 20.8 Intake & Output: Intake and Output for Last 24 Hours 08/04/23 08/05/23 08/06/23 23:59 23:59 23:59 Intake Total 1100 / 1100 50 / 50 Output Total 400 / 400 Balance 700 / 700 50 / 50 Lab / Micro Data 08/06/23 03:12 08/06/23 03:12 Labs: Laboratory Results - last 24 hr 08/05/23 09:35: Diff Path Review Reviewed, ESR 8, Lactate Dehydrogenase 273 H, C-React Prot Ext Range 27.20 H, B-Natriuretic Peptide < 2.0 08/05/23 11:15: Urine Osmolality 138, Ur Random Sodium 18, Urine Creatinine 21.50, Urine Potassium 20.0, Urine Chloride < 10, Urine Urea Nitrogen 189 08/05/23 13:07: Fluid Glucose 102 H, Fluid Total Protein 4.0, Fluid LDH 98 08/05/23 14:17: Fluid Source PERITONEAL FLUID, Fluid Color YELLOW, Fluid Appearance CLEAR, Fluid WBC 0.599, Fluid RBC 315, Fluid Tot Cell Count 0.655 H, Fld Polynuclear WBCs # 0.243, Fld Polynuclear WBCs % 40.6, Fluid Mononuclear WBCs 0.356, Fld Mononuclear WBCs % 59.4, Fluid Neutrophils 47, Fluid Lymphocytes 15, Fluid Monocytes 1, Fluid Macrophages 35, Fld Mesothelial Cells 2, Fl Pathologist Comment Reviewed, Fluid Comment 2 SEE COMMENT 08/05/23 14:19: Serum Osmolality 279 08/06/23 03:12: WBC 11.6 H, RBC 4.24, Hgb 12.1, Hct 36.8 L, MCV 86.8, MCH 28.5, MCHC 32.9, RDW Std Deviation 43.8, RDW Coeff of Audrey 13.8, Plt Count 307, MPV 7.7, Immature Gran % (Auto) 3.500 H, Neut % (Auto) 70.2 H, Lymph % (Auto) 18.5 L , Merrick % (Auto) 7.2, Eos % (Auto) 0.2, Baso % (Auto) 0.4, Absolute Neuts (auto) 8.1 H, Absolute Lymphs (auto) 2.14, Nucleated RBC % 0, PT 15.9 H, INR 1.3, Sodium 135 L, Potassium 3.7, Chloride 105, Carbon Dioxide 21.0, Anion Gap 9, BUN 13, Creatinine 0.48 L, Estim Creat Clear Calc 120.22, Est GFR (MDRD) Af Amer 174, Est GFR (MDRD) Non-Af 144, BUN/Creatinine Ratio 27.2 H, Glucose 80, Calcium 7.0 L, Phosphorus 3.6, Magnesium 2.3, Total Bilirubin 0.40, AST 13 L, ALT 11 L, Alkaline Phosphatase 52, Total Protein 4.8 L, Albumin 2.1 L, Globulin 2.7, Albumin/Globulin Ratio 0.8 L, TSH 4.61 H, Free T4 1.10 Micro: Microbiology 08/05/23 14:17 Fluid - Ascites Gram Stain - Final 08/05/23 14:17 Fluid - Ascites Body Fluid Culture - Preliminary No growth-Final to follow Radiography Diagnostic Testing: Radiology Impression Echocardiogram 08/05/23 13:41 Interpretation Summary The estimated ejection fraction is 55 %. Unable to assess diastolic dysfunction. Small pericardial effusion. Ordering Physician: Norah Wild Performed By: Chapin Kimble RCS Transvaginal US 08/06/23 08:19 IMPRESSION: Fibroid uterus. Fluid in the pelvis. IUD is seen within the endometrium. Electronically Signed: Ted Membreno MD at 10:24 EST , Physical Exam Const alert, oriented x3 and no apparent distress General Appearance: cooperative HEENT normocephalic, head/scalp atraumatic, moist oral mucous membranes and oropharynx normal Eyes PERRL and EOMs intact bilaterally Neck no lymphadenopathy, supple and no JVD Lymph Lymphatic: no lymphadenopathy noted and no lymphedema noted Resp normal respiratory effort, normal air movement and clear to auscultation bilaterally Cardio regular rate, regular rhythm, S1 normal heart sound, S2 normal heart sound and no murmurs GI GI Narrative: moderate abdominal distension, with positive fluid thrill and shifting dullness. Minimal generalised tenderness Extremity normal capillary refill, no clubbing, cyanosis or edema and no calf tenderness General Extremity: no tenderness to palpation of joints or extremities Skin General Skin Exam: no breakdown Neuro CN's II-XII intact bilaterally, no focal motor deficits, no sensory deficits noted and deep tendon reflexes 2+ bilaterally Psych thought process normal and cooperative Appearance: appropriate Assessment & Plan Assessment/Plan (1) Ascites: QUALIFIERS: Ascites type: other type Qualified Code(s): R18.8 - Other ascites PLAN: Plan #New onset ascites * etiology is unclear. * had paracentesis with removal of 400cc yesterday * CT of the abdomen and pelvis showed diffuse ascites with diffuse inflammatory changes seen throughout the colon worse in the right hemicolon with dilatation of the ascending colon, firoid uerus and stable bilateral renal cysts * transvaginal USG today showed fibroid uterus with fluid in the pelvis and IUD seen in the endometrium. Both ovaries werent visualised. * ascitic fluid polymorphonuclear wbcs are 0.243, and so doesnt meet criteria for SBP, though she is on IV zosyn for presumed SBP. * ascitic fluid albumin not measured, so unable to check SAAG; ascitic fluid albumin ordered. * fluid cytology pending * CEA, CA 125, CA 19-9, ESR and CRP ordered * GI consulted. Await recs. * continue iV antibiotics until cultures result * 2D echo showed EF of 55%, unable to assess diastolic dysfunction and small pericardial effusion. * #Hyponatremia: impoving. sodium is up to 135 today. #History of microscopic colitis * Diagnosed prior colonoscopy a few months ago. On budesonide. Will continue budesonide and mesalamine. * currently not having any diarrhea. #History of melanoma: Says it was resected. This was about a decade ago. Await fluid cytology to make sure that this sudden onset of ascites with weight loss is not associated with melanoma mets #Nicotine dependence: counseled to quit. Nicotine patch 21mg daily DVT prophylaxis; lovenox Charges/Coding Visit Charges Inpatient E&M: 37129 Subs Hosp L2
[2023-08-06 16:14] VITALS: BP 95/74; PULSE 109; RESP 16; TEMP 36.9; O2SAT 95
[2023-08-06 18:11] VITALS: BP 100/72; PULSE 108; RESP 16; TEMP 36.9; O2SAT 98
[2023-08-06] MEDS: Morphine 4 MG/ML Syringe IV (18:12)
[2023-08-06 21:48] VITALS: BP 92/72; PULSE 102; RESP 18; TEMP 37.1; O2SAT 94
[2023-08-06] MEDS: 0.9% Saline Lock 10 ML Syringe IV (21:51)
[2023-08-07 04:03] VITALS: BP 93/59; PULSE 89; RESP 18; TEMP 36.7; O2SAT 95
[2023-08-07] MEDS: Morphine 4 MG/ML Syringe IV (04:24)
[2023-08-07] MEDS: Senna/Docusate Sodium 1 Tablet 2 TABLET PO (04:26)
[2023-08-07] MEDS: Piperacil/Tazobactam 3.375 GM in 0.9% Normal Saline (50mL MB+) 50 ML IV ×3 (05:41→21:15)
[2023-08-07 06:00] VITALS: BMI 21.4
[2023-08-07 06:45] LABS: Absolute Lymphocyte Count 2.32 X10^3/uL (0.83-4.51); Absolute Neutrophil Count 9.5 X10^3/uL (2.0-7.7); Basophil# 0.08 X10^3/uL; Basophil% 0.6 % (0-1); Eosinophil# 0.05 X10^3/uL; Eosinophils% 0.4 % (0-5); Hematocrit 40.7 % (37-47); Hemoglobin 13.3 g/dL (12.0-15.0); Lymphocyte # 2.32 X10^3/ul (0.83-4.51); Lymphocyte % 17.4 % (19-41); Mean Corp Hgb Conc 32.7 g/dL (32-36); Mean Corpuscular Hgb 28.1 pg (27.0-32.0); Mean Platelet Vol. 7.9 fl (6.2-12.0); Monocyte# 1.08 X10^3/uL; Monocyte% 8.1 % (0-10); NRBC Flagged by Analyzer 0 % (0-5); Neutrophil # 9.52 X10^3/uL (2.7-7.7); Neutrophil % 71.5 % (47-70); Platelet Count 335 K/mm3 (150-450); RBC Distribution Width CV 13.5 % (11.6-14.6); RBC Distribution Width SD 42.7 fl (35.1-43.9); Red Blood Count 4.73 M/mm3 (4.2-5.4); White Blood Count 13.3 K/mm3 (4.4-11.0)
[2023-08-07 07:17] LABS: ALB/GLOB Ratio 0.7 RATIO (0.9-2.4); AST(SGOT) 15 U/L (15-37); Alanine Aminotransfer ALT/SGPT 14 U/L (13-56); Albumin, Serum 2.5 g/dL (3.2-5.0); Alkaline Phosphatase 61 U/L (45-117); Anion Gap 6 (5-15); BUN 13 mg/dL (7-18); BUN/Creat Ratio 19.6 RATIO (10-20); Calcium,Total 7.7 mg/dL (8.5-10.1); Chloride 101 mmol/L (98-107); Creatinine, Serum 0.66 mg/dL (0.55-1.02); EST Glomerular Filtration Rate 99 mL/min (>60); Est Glom Filt Rate - Afr Amer 119 mL/min (>60); Estimated Creatinine Clearance 87.68 ml/min; Globulin 3.5 g/dL (2.2-4.2); Glucose 119 mg/dL (74-106); Potassium 3.3 mmol/L (3.5-5.1); Sodium Level 132 mmol/L (136-145)
[2023-08-07 07:58] VITALS: BP 95/67; PULSE 98; RESP 18; TEMP 36.9; O2SAT 95
[2023-08-07] MEDS: Budesonide 3 MG CAPSULE.EC 9 MG PO (10:52)
--- NOTE | 2023-08-07 11:28 | PN_ITS ---
Subjective Subjective Patient seen and examined. She said her abdomen is distended again. She denied any fever, chills, cough, chest pain, palpitations, dizziness, nausea, vomiting or any other complaints. Review of systems is otherwise negative. Objective Data Objective Data Vital Signs: Vital Signs Temp Pulse Resp BP Pulse Ox O2 Del Method 98.4 F 98 18 95/67 95 Room Air 08/07/23 07:58 08/07/23 07:58 08/07/23 07:58 08/07/23 07:58 08/07/23 07:58 08/07/23 07:58 Oxygen Delivery Method Room Air Weight: 128 lb 8.472 oz Body Mass Index (BMI) 21.4 Intake & Output: Intake and Output for Last 24 Hours 08/05/23 08/06/23 08/07/23 23:59 23:59 23:59 Intake Total 1100 / 1100 1110 / 1110 100 / 100 Output Total 400 / 400 Balance 700 / 700 1110 / 1110 100 / 100 Lab / Micro Data 08/07/23 06:10 08/07/23 06:10 Labs: Laboratory Results - last 24 hr 08/05/23 09:35: Diff Path Review Reviewed 08/05/23 14:17: Fl Pathologist Comment Reviewed 08/07/23 06:10: WBC 13.3 H, RBC 4.73, Hgb 13.3, Hct 40.7, MCV 86.0, MCH 28.1, MCHC 32.7, RDW Std Deviation 42.7, RDW Coeff of Audrey 13.5, Plt Count 335, MPV 7.9, Immature Gran % (Auto) 2.000 H, Neut % (Auto) 71.5 H, Lymph % (Auto) 17.4 L , Leslie % (Auto) 8.1, Eos % (Auto) 0.4, Baso % (Auto) 0.6, Absolute Neuts (auto) 9.5 H, Absolute Lymphs (auto) 2.32, Nucleated RBC % 0, Sodium 132 L, Potassium 3.3 L, Chloride 101, Carbon Dioxide 25.0, Anion Gap 6, BUN 13, Creatinine 0.66, Estim Creat Clear Calc 87.68, Est GFR (MDRD) Af Amer 119, Est GFR (MDRD) Non-Af 99, BUN/Creatinine Ratio 19.6, Glucose 119 H, Calcium 7.7 L, Total Bilirubin 0.30, AST 15, ALT 14, Alkaline Phosphatase 61, Total Protein 6.0 L, Albumin 2.5 L, Globulin 3.5, Albumin/Globulin Ratio 0.7 L Micro: Microbiology 08/05/23 14:17 Fluid - Ascites Gram Stain - Final 08/05/23 14:17 Fluid - Ascites Body Fluid Culture - Preliminary No growth-Final to follow Radiography Diagnostic Testing: Radiology Impression Echocardiogram 08/05/23 13:41 Interpretation Summary The estimated ejection fraction is 55 %. Unable to assess diastolic dysfunction. Small pericardial effusion. Ordering Physician: Norah Wild Performed By: Chapin Kimble RCS Physical Exam Const alert, oriented x3 and no apparent distress General Appearance: cooperative HEENT normocephalic, head/scalp atraumatic, moist oral mucous membranes and oropharynx normal Eyes PERRL and EOMs intact bilaterally Neck no lymphadenopathy, supple and no JVD Lymph Lymphatic: no lymphadenopathy noted and no lymphedema noted Resp normal respiratory effort, normal air movement and clear to auscultation bilaterally Cardio regular rate, regular rhythm, S1 normal heart sound, S2 normal heart sound and no murmurs GI GI Narrative: moderate abdominal distension, with positive fluid thrill and shifting dullness. Minimal generalised tenderness Extremity normal capillary refill, no clubbing, cyanosis or edema and no calf tenderness General Extremity: no tenderness to palpation of joints or extremities Skin General Skin Exam: no breakdown Neuro CN's II-XII intact bilaterally, no focal motor deficits, no sensory deficits n oted and deep tendon reflexes 2+ bilaterally Psych thought process normal and cooperative Appearance: appropriate Assessment & Plan Assessment/Plan (1) Ascites: QUALIFIERS: Ascites type: other type Qualified Code(s): R18.8 - Other ascites PLAN: Plan #New onset ascites * etiology is unclear. * had paracentesis with removal of 400cc on admission 2 days ago. * CT of the abdomen and pelvis showed diffuse ascites with diffuse inflammatory changes seen throughout the colon worse in the right hemicolon with dilatation of the ascending colon, firoid uerus and stable bilateral renal cysts * transvaginal USG showed fibroid uterus with fluid in the pelvis and IUD seen in the endometrium. Both ovaries werent visualised. * ascitic fluid polymorphonuclear wbcs are 0.243, and so doesnt meet criteria for SBP, though she is on IV zosyn for presumed SBP. * fluid cytology negative for malignant cells. * CEA, CA 125, CA 19-9, ESR and CRP ordered * GI consulted. Still awaiting recs. * ascitic fluid cultures neative for any growth so far, no cells or organisms seen * 2D echo showed EF of 55%, unable to assess diastolic dysfunction and small pericardial effusion. wbc has trended up to 13 today; await GI recs before discontinuing antibiotics. * #Hyponatremia: Remains 132 today. Will continue to monitor. #History of microscopic colitis * Diagnosed prior colonoscopy a few months ago. On budesonide. Will continue budesonide and mesalamine. * currently not having any diarrhea. #History of melanoma: Says it was resected. This was about a decade ago. fluid cytology negative for malignant cells. #Nicotine dependence: counseled to quit. Nicotine patch 21mg daily DVT prophylaxis; lovenox Charges/Coding Visit Charges Inpatient E&M: 38872 Subs Hosp L2
[2023-08-07 12:09] LABS: Cancer Antigen 125 2303 98.7 U/mL (0.0-38.1); Carbohydrate Ag 19-9 2261 3 U/mL (0-35); Carcinoembryonic Antigen 2.5 ng/mL (0.0-4.7)
[2023-08-07 14:43] VITALS: BP 98/72; PULSE 100; RESP 18; TEMP 37.3
--- NOTE | 2023-08-07 16:38 | CON.PCM.GI_ITS ---
HPI Consult Data Date of Consult: 08/07/23 HPI Narrative Reason for Consultation: Ascites HPI Narrative: MICHAEL ESPARZA, is a 53 F who presents5 with worsening abdominal distention. She has a history of melanoma, microscopic colitis (on budesonide 9 mg a day), and tobacco use presented to [facility] 08/05/2023 with inc reasing abdominal girth, fullness, discomfort, and nausea since with night sweats over 2 months. In ED pt w/ HR 114 and BP 113/74, wbc 16 w/ left shift. Liver panel within normal limits and creatinine 0.67, sodium slightly low at 132 but lab workup otherwise unremarkable. CT abdomen pelvis obtained which demonstrated diffuse ascites, diffuse inflammatory changes throughout the colon worse in the right hemicolon with dilation of the ascending colon. There was concern for SBP given her leukocytosis with left shift and symptoms so she was started on Zosyn and paracentesis with studies ordered in ED. ED physician also spoke with her GI doctor, Dr. Berman who was updated.. P atbakari eports that she has had some night sweats and possible weight loss over the past couple of months, she did have some symptoms of an ear infection shortly before and got 5 days of antibiotics and her symptoms improved but she began to have abdominal distention so she stopped after 5 days and she also stopped her budesonide which she was taking previous in case this was contributing. Her abdominal distention continued to worsen however in about 10 days ago her PCP gave her 7 days of prednisone and a PPI but again symptoms worsened and now it is uncomfortable for her to sit and stand and it is hard to work and her abdominal distention is making it hard to breathe prompting her presentation to the emergency department. She reports that if anything she has been somewhat constipated and has abdominal discomfort without overt pain, has had problems with swelling in the past after changing her control pills and after this is always gone away on its own. She denies alcohol use, smokes 7 to 10 cigarettes a day and denies substance use. Has taken various supplements in the past but denies any change in supplements recently aside from a probiotic. Did start taking her budesonide again recently after being off of it but has not noticed improvement. Patient said she feels that her skin is almost hanging off of her but she is not sure about actual weight loss since she has been having increased abdominal girth. No problems with urination, feels that she has some altered sensation kind of diffusely and some dry skin, denies any nausea or vomiting. CT abdomen pelvis displays : Diffuse ascites. Diffuse inflammatory changes seen throughout the colon worse in the right hemicolon with dilatation of the ascending colon. [facility] Medical History Cancer Colitis Melanoma Home Medications Lactobacillus acidophilus 10 billion cell capsule (NewFlora) 10,000 mmu cells PO DAILY 08/05/23 [History Last Taken 08/04/23] bisacodyl 5 mg tablet,delayed release (Alophen (bisacodyl)) 5 mg PO Q6H PRN cons tipation 08/05/23 [History Last Taken 08/04/23] budesonide 3 mg capsule,delayed,extended release 9 mg PO DAILY colitis 08/05/23 [History Last Taken 08/05/23] Allergy/AdvReac Type Severity Reaction Status Date / Time sulfamethoxazole Allergy Severe Swelling Verified 08/05/23 09:23 [From Bactrim] trimethoprim [From Bactrim] Allergy Severe Swelling Verified 08/05/23 09:23 Surgical History Hx of section Hx of melanoma excision Social History (Updated 08/05/23 @ 10:[address] Willi Frausto MD) household members: spouse Smoking Status: Current every day smoker tobacco type: cigarettes alcohol intake: former substance use type: does not use ROS ROS Narrative General: Has had some night sweats and possible weight loss HENT: Has had some stuffy nose and sore throat EYES: Has some blurry vision Resp: Has increasing shortness of breath and slight cough over the weekend that worsens her abdominal discomfort Cardiac: Denies chest pain GI: Some constipation, abdominal discomfort, no nausea or vomiting : Denies changes in urination Extremity: Denies swelling of extremities MSK: Denies weakness Neuro: Feels that she has altered sensation somewhat diffusely Heme: Denies any bleeding or bruising Skin: Denies rashes Psychiatric: No complaints voiced Physical Exam Const alert, oriented x3 and no apparent distress General Appearance: cooperative HEENT normocephalic, head/scalp atraumatic, moist oral mucous membranes and oropharynx normal Eyes PERRL and EOMs intact bilaterally Neck no lymphadenopathy, supple and no JVD Lymph Lymphatic: no lymphadenopathy noted and no lymphedema noted Resp normal respiratory effort, normal air movement and clear to auscultation bilaterally Cardio regular rate, regular rhythm, S1 normal heart sound, S2 normal heart sound and no murmurs GI GI Narrative: moderate abdominal distension, with positive fluid thrill and shifting dullness. Minimal generalised tenderness Extremity normal capillary refill, no clubbing, cyanosis or edema and no calf tenderness General Extremity: no tenderness to palpation of joints or extremities Skin General Skin Exam: no breakdown Neuro CN's II-XII intact bilaterally, no focal motor deficits, no sensory deficits noted and deep tendon reflexes 2+ bilaterally Psych thought process normal and cooperative Appearance: appropriate Lab / Micro Data 08/07/23 06:10 08/07/23 06:10 Labs: Laboratory Results - last 24 hr 08/05/23 14:19: Carcinoembryonic Ag 2.5, CA 19-9 Antigen 3, CA 125 Antigen 98.7 H 08/07/23 06:10: WBC 13.3 H, RBC 4.73, Hgb 13.3, Hct 40.7, MCV 86.0, MCH 28.1, MCHC 32.7, RDW Std Deviation 42.7, RDW Coeff of Audrey 13.5, Plt Count 335, MPV 7.9, Immature Gran % (Auto) 2.000 H, Neut % (Auto) 71.5 H, Lymph % (Auto) 17.4 L , Runnels % (Auto) 8.1, Eos % (Auto) 0.4, Baso % (Auto) 0.6, Absolute Neuts (auto) 9.5 H, Absolute Lymphs (auto) 2.32, Nucleated RBC % 0, Sodium 132 L, Potassium 3.3 L, Chloride 101, Carbon Dioxide 25.0, Anion Gap 6, BUN 13, Creatinine 0.66, Estim Creat Clear Calc 87.68, Est GFR (MDRD) Af Amer 119, Est GFR (MDRD) Non-Af 99, BUN/Creatinine Ratio 19.6, Glucose 119 H, Calcium 7.7 L, Total Bilirubin 0.30, AST 15, ALT 14, Alkaline Phosphatase 61, Total Protein 6.0 L, Albumin 2.5 L, Globulin 3.5, Albumin/Globulin Ratio 0.7 L Micro: Microbiology 08/05/23 11:35 Blood Culture (Wb) - Anticubital Left Blood Culture - Preliminary No growth in 48 hours. 08/05/23 11:30 Blood Culture (Wb) - Right Wrist Blood Culture - Preliminary No growth in 48 hours. 08/05/23 14:17 Fluid - Ascites Gram Stain - Final 08/05/23 14:17 Fluid - Ascites Body Fluid Culture - Preliminary No growth-Final to follow Assessment & Plan Assessment/Plan (1) Ascites: QUALIFIERS: Ascites type: other type Qualified Code(s): R18.8 - Other ascites (2) Abdominal distension: PLAN: Plan 53-year-old with past medical history of microscopic colitis on budesonide therapy comes in with worsening abdominal distention and discovered to have ascites with diffuse colitis in the right side of the colon. The ascites is perihepatic and perisplenic along with being in the paracolic gutters and throughout the abdomen. The differential diagnosis for this ascites in colitis would be ulcerative colitis, chronic liver disease secondary to nonalcoholic steatohepatitis plus or minus Budd-Chiari syndrome. She should have an echocardiogram to make sure there is no sign of right heart failure presenting with ascites. Also the diff erential diagnosis would be peritoneal carcinomatosis with infiltrative disease into the colon. Her CA125 is elevated which is concerning. If possible she should have another paracentesis with plus or minus liver biopsy. She also may need a peritoneal biopsy for peritoneal carcinomatosis I do not suspect any myxedema coma due to her mildly elevated TSH as the etiology of her ascites in thinking: She should undergo an EGD and colonoscopy to evaluate upper and lower GI tract with biopsies to look for signs and symptoms of autoimmune enteropathy, inflammatory bowel disease. Charges/Coding Visit Charges Inpatient E&M: 85738 Init Hosp L3
[2023-08-07] MEDS: Polyethylene Glycol 3350 BOWEL PREP PO (17:41)
[2023-08-07] MEDS: Bisacodyl 5 MG Tablet 20 MG PO (17:41)
[2023-08-07 18:54] LABS: Internal QC Validated? YES +Cl - CLEAR BKGD; Pregnancy, Urine Negative Negative; Record Kit Lot#,Urine Preg 667200
[2023-08-07 21:17] VITALS: BP 104/67; PULSE 92; RESP 18; TEMP 36.6; O2SAT 100
[2023-08-08] VITALS (9 sets, daily range): BP systolic 79–97; BP diastolic 48–68; PULSE 76–87; RESP 15–18; TEMP 36.2–36.8; O2SAT 95–100; BMI 21.4; BMI 21.7
[2023-08-08] MEDS: Piperacil/Tazobactam 3.375 GM in 0.9% Normal Saline (50mL MB+) 50 ML IV ×3 (05:02→21:48)
[2023-08-08] MEDS: Polyethylene Glycol 3350 BOWEL PREP 1 BOTTLE PO (05:58)
[2023-08-08 06:36] LABS: Absolute Neutrophil Count 4.4 X10^3/uL (2.0-7.7); Basophil# 0.02 X10^3/uL; Basophil% 0.3 % (0-1); Eosinophil# 0.04 X10^3/uL; Eosinophils% 0.5 % (0-5); Hemoglobin 10.8 g/dL (12.0-15.0); Lymphocyte % 28.9 % (19-41); Mean Corp Hgb Conc 32.7 g/dL (32-36); Mean Corpuscular Hgb 28.5 pg (27.0-32.0); Mean Corpuscular Volume 87.1 fL (81-99); Mean Platelet Vol. 7.8 fl (6.2-12.0); Monocyte# 0.81 X10^3/uL; Monocyte% 10.7 % (0-10); NRBC Flagged by Analyzer 0 % (0-5); Neutrophil # 4.44 X10^3/uL (2.7-7.7); Neutrophil % 58.4 % (47-70); Platelet Count 247 K/mm3 (150-450); RBC Distribution Width CV 13.5 % (11.6-14.6); RBC Distribution Width SD 42.9 fl (35.1-43.9); Red Blood Count 3.79 M/mm3 (4.2-5.4); White Blood Count 7.6 K/mm3 (4.4-11.0)
[2023-08-08 07:15] LABS: ALB/GLOB Ratio 0.7 RATIO (0.9-2.4); AST(SGOT) 19 U/L (15-37); Alanine Aminotransfer ALT/SGPT 14 U/L (13-56); Albumin, Serum 2.5 g/dL (3.2-5.0); Alkaline Phosphatase 57 U/L (45-117); Anion Gap 8 (5-15); BUN 5 mg/dL (7-18); BUN/Creat Ratio 11.1 RATIO (10-20); Calcium,Total 7.2 mg/dL (8.5-10.1); Chloride 105 mmol/L (98-107); Creatinine, Serum 0.45 mg/dL (0.55-1.02); EST Glomerular Filtration Rate 155 mL/min (>60); Est Glom Filt Rate - Afr Amer 187 mL/min (>60); Globulin 3.5 g/dL (2.2-4.2); Glucose 98 mg/dL (74-106); Sodium Level 137 mmol/L (136-145)
[2023-08-08] MEDS: Budesonide 3 MG CAPSULE.EC 9 MG PO (08:20)
[2023-08-08] MEDS: Potassium Chloride Oral Tablet 20 MEQ 40 MEQ PO (08:20)
--- NOTE | 2023-08-08 10:18 | NURSING ---
off unit via bed for procedure
[2023-08-08] MEDS: Lactated Ringers 1,000 ML 15 ML IV (10:35)
--- NOTE | 2023-08-08 11:40 | EGD_PTH ---
PATIENT: MICHAEL ESPARZA LOC: [facility]#:[id number] AGE/SX: 53/F ROOM: [facility] RE08/05/[address]: Dr. Edu Swan MD : 1970 BED: 1 DIS: 08/15/2023 SPEC #: [id number] RECD: 08/08/23 13:28 STATUS: JEFRY JANAK #: [id number] DANTE: 08/08/23 11:[address]: [place] DEPT: SURGICAL PATHOLOGY RECD BY: Susy Brown ENTERED: 08/08/23 13:50 SP TYPE: EGD BIOPSY OTHR DR: MD Dr. Norah Smith MD Richard Dennis Tompkins, CONDITIONING COACH-C Tissues: A - Duodenum, NOS B - Gastric mucous membrane C - COLON BIOPSY Procedures: Trichrome (control) Special Stain Group II Surgery Specimen Level IV Comments: @ Ordering doctor for SUIV edited from to @ by BIMAL at 08/08/23 1449 @ Submitting doctor edited from to @ by RGOOD at 08/08/23 144 HEADER OPERATION: Colonoscopy, EGD with biopsy PRE-OP DIAGNOSIS: Abdominal distension TISSUE SUBMITTED: A - Duodenum biopsy, B - Gastric body biopsy, C - Random colon biopsy MICROSCOPIC DIAGNOSIS A. Duodenum, biopsy: Fragments of duodenal mucosa, no pathologic diagnosis. B. Gastric body, biopsy: Mild gastritis. See microscopic description and comment. C. Colon, random biopsy: Diffuse acute colitis and superficial fibrinous exudation. See comment. SJ:laurie 08/09/2023 COMMENT B. The results of immunohistochemistry for Helicobacter pylori will be reported separately ([id number]). C. The specimen shows focal cryptitis and crypt abscesses. Significant glandular distortion is not seen. Trichrome stain with matched control is used in the evaluation of the specimen and does not show significant thickening of subepithelial collagen band. Case has been reviewed in consultation with Dr. Dickson who concurs with the above diagnosis. IDC:AM MICROSCOPIC DESCRIPTION Slides are reviewed. B. The specimen shows fragments of gastric mucosa with chronic inflammatory cell infiltrates in the lamina propria consisting of lymphocytes and plasma cells, consistent with mild chronic gastritis. GROSS DESCRIPTION A - Received in fixative is one container labeled with the patient's name and designated duodenum biopsy. The specimen consists of two irregular fragments of light barrios soft tissue that in aggregate measure 0.6 x 0.3 x 0.1 cm. The specimen is totally submitted in one cassette. B - Received in fixative is one container labeled with the patient's name and designated gastric body biopsy. The specimen consists of two irregular fragments of light barrios soft tissue that in aggregate measure 0.6 x 0.3 x 0.1 cm. The specimen is totally submitted in one cassette. C - Received in fixative is one container labeled with the patient's name and designated random colon biopsy. The specimen consists of multiple irregular fragments of light barrios soft tissue that in aggregate measure 2.0 x 0.6 x 0.1 cm. The specimen is totally submitted in one cassette. / SJ:laurie 08/08/2023 TC:2 CPT: 04989 x3, 22131
--- NOTE | 2023-08-08 11:40 | IMM_PTH ---
PATIENT: MICHAEL ESPRAZA LOC: [facility] U#:[id number] AGE/SX: 53/F ROOM: [facility] RE08/05/[address]: Dr. Edu Swan MD : 1970 BED: 1 DIS: 08/15/2023 SPEC #: [id number] RECD: 08/08/23 14:44 STATUS: SOULinda REQ #: [id number] DANTE: 08/08/23 11:[address]: West Smith DEPT: IMMUNOHISTOCHEMISTRY RECD BY: Yanely Abdalla ENTERED: 08/08/23 14:44 SP TYPE: IMMUNO OTHR DR: MD Dr. 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 Localization is made via biotin free immunoperoxidase method. Appropriate controls are performed and reacted as expected. Results on target cell population are indicated in the following table: RESULTS: ANTIBODY / CLONE RESULT Block B H Pylori (polyclonal) negative These tests were developed and their performance characteristics determined by [facility]. They may not have been cleared or approved by the U.S. Food and Drug Administration. The FDA has determined that such clearance or approval is not necessary. The above immunohistochemical/dualISH markers are ordered and reviewed by the Pathologist. INTERPRETATION: B. Gastric body, biopsy: Negative for Helicobacter pylori organisms. SJ:laurie 08/09/2023
--- NOTE | 2023-08-08 12:32 | OP.CCLET_ITS ---
08/08/2023 Blake Carter Re : Upper GI endoscopy procedure for May Quintanilla Dear Raul This procedure was performed on July. My impressions and recommendations are as follows: Impressions : - Normal esophagus. - Chronic gastritis. Biopsied. - Erythematous duodenopathy. Biopsied. Recommendations : - [facility]. - Advance diet as tolerated. - Continue present medications. - Await pathology results. My findings are described in the full procedure note, which is enclosed. If I can be of further assistance, please feel free to contact me at . Sincerely, West Smith, 08/08/2023 12:31:43 PM This report has been signed electronically.
--- NOTE | 2023-08-08 12:32 | OP.EGD_ITS ---
Patient Name: May Quintanilla Procedure Date: 08/08/2023 11:42 AM Date of : 1970 Age: 53 Procedure: Upper GI endoscopy Indications: Epigastric abdominal pain Providers: West Smith DO Medicines: Monitored Anesthesia Care Patient Profile: This is a 53 year old female. Refer to note in patient chart for documentation of history and physical. Patient has symptoms of acute abdominal distention. Complications: No immediate complications. Procedure: Pre-Anesthesia Assessment: - Prior to the procedure, a History and Physical was performed, and patient medications and allergies were reviewed. The patient is competent. The risks and benefits of the procedure and the sedation options and risks were discussed with the patient. All questions were answered and informed consent was obtained. Patient identification and proposed procedure were verified by the physician. Mental Status Examination: alert and oriented. Airway Examination: normal oropharyngeal airway and neck mobility. Respiratory Examination: clear to auscultation. CV Examination: normal. Prophylactic Antibiotics: The patient does not require prophylactic antibiotics. Prior Anticoagulants: The patient has taken no anticoagulant or antiplatelet agents. ASA Grade Assessment: III - A patient with severe systemic disease. After reviewing the risks and benefits, the patient was deemed in satisfactory condition to undergo the procedure. The anesthesia plan was to use monitored anesthesia care (MAC). Immediately prior to administration of medications, the patient was re-assessed for adequacy to receive sedatives. The heart rate, respiratory rate, oxygen saturations, blood pressure, adequacy of pulmonary ventilation, and response to care were monitored throughout the procedure. The physical status of the patient was re-assessed after the procedure. After obtaining informed consent, the endoscope was passed under direct vision. Throughout the procedure, the patient's blood pressure, pulse, and oxygen saturations were monitored continuously. The Colonoscope was introduced through the mouth, and advanced to the second part of duodenum. The upper GI endoscopy was accomplished without difficulty. The patient tolerated the procedure well. Scope In: 11:53:05 AM Scope Out: 11:56:34 AM Total Procedure Duration Time 0 hours 3 minutes 29 seconds Findings: The examined esophagus was normal. Localized mild inflammation characterized by congestion (edema), erosions and erythema was found in the gastric body. Biopsies were taken with a cold forceps for histology. Verification of patient identification for the specimen was done. Estimated blood loss was minimal. Biopsies were taken with a cold forceps for Helicobacter pylori testing. Verification of patient identification for the specimen was done. Estimated blood loss was minimal. Patchy mildly erythematous mucosa without active bleeding and with no stigmata of bleeding was found in the duodenal bulb, in the second portion of the duodenum and in the third portion of the duodenum. Biopsies were taken with a cold forceps for histology. Verification of patient identification for the specimen was done. Estimated blood loss was minimal. Impression: - Normal esophagus. - Chronic gastritis. Biopsied. - Erythematous duodenopathy. Biopsied. Recommendation: - [facility]. - Advance diet as tolerated. - Continue present medications. - Await pathology results. Procedure Code(s): --- Professional --- 17429, Esophagogastroduodenoscopy, flexible, transoral; with biopsy, single or multiple CPT copyright 2021 [employer]. All rights reserved. The codes documented in this report are preliminary and upon cheese sprayer review may be revised to meet current compliance requirements. West Smith DO 08/08/2023 12:31:43 PM This report has been signed electronically. Number of Addenda: 0 Note Initiated On: 08/08/2023 11:42 AM
--- NOTE | 2023-08-08 12:40 | OP.CCLET_ITS ---
08/08/2023 Blake Carter Re : Colonoscopy procedure for May Quintanilla Dear Raul This procedure was performed on July. My impressions and recommendations are as follows: Impressions : - Diffuse moderate mucosal changes were found in the entire examined colon secondary to colitis. Biopsied. - Exudate in the entire examined colon. Fluid aspiration performed. Recommendations : - [facility]. - Advance diet as tolerated. - Continue present medications. - Await pathology results. - Repeat colonoscopy is recommended for surveillance. The colonoscopy date will be determined after pathology results from today's exam become available for review. My findings are described in the full procedure note, which is enclosed. If I can be of further assistance, please feel free to contact me at . Sincerely, West Smith, 08/08/2023 12:40:26 PM This report has been signed electronically.
--- NOTE | 2023-08-08 12:40 | OP.COLON_ITS ---
Patient Name: May Quintanilla Procedure Date: 08/08/2023 11:56 AM Date of : 1970 Age: 53 Procedure: Colonoscopy Indications: Generalized abdominal pain, Abnormal CT of the GI tract Providers: West Smith DO Medicines: Monitored Anesthesia Care Patient Profile: This is a 53 year old female. Refer to note in patient chart for documentation of history and physical. Patient has symptoms of acute abdominal distention. Last Colonoscopy: date unknown. Unable to locate last colonoscopy report. Complications: No immediate complications. Procedure: Pre-Anesthesia Assessment: - Prior to the procedure, a History and Physical was performed, and patient medications and allergies were reviewed. The patient is competent. The risks and benefits of the procedure and the sedation options and risks were discussed with the patient. All questions were answered and informed consent was obtained. Patient identification and proposed procedure were verified by the physician. Mental Status Examination: alert and oriented. Airway Examination: normal oropharyngeal airway and neck mobility. Respiratory Examination: clear to auscultation. CV Examination: normal. Prophylactic Antibiotics: The patient does not require prophylactic antibiotics. Prior Anticoagulants: The patient has taken no anticoagulant or antiplatelet agents. ASA Grade Assessment: III - A patient with severe systemic disease. After reviewing the risks and benefits, the patient was deemed in satisfactory condition to undergo the procedure. The anesthesia plan was to use monitored anesthesia care (MAC). Immediately prior to administration of medications, the patient was re-assessed for adequacy to receive sedatives. The heart rate, respiratory rate, oxygen saturations, blood pressure, adequacy of pulmonary ventilation, and response to care were monitored throughout the procedure. The physical status of the patient was re-assessed after the procedure. After I obtained informed consent, the scope was passed under direct vision. Throughout the procedure, the patient's blood pressure, pulse, and oxygen saturations were monitored continuously. The Colonoscope was introduced through the anus and advanced to the cecum, identified by appendiceal orifice and ileocecal valve. The colonoscopy was performed without difficulty. The patient tolerated the procedure well. The quality of the bowel preparation was adequate. The ileocecal valve, appendiceal orifice, and rectum were photographed. Scope In: 11:59:38 AM Scope Withdrawal Time 0 hours 7 minutes 14 seconds Scope Out: 12:25:24 PM Total Procedure Duration Time 0 hours 25 minutes 46 seconds Findings: The perianal and digital rectal examinations were normal. Diffuse moderate mucosal changes characterized by congestion (edema), erythema, friability, granularity, loss of vascularity and mucus were found in the entire colon. Biopsies were taken with a cold forceps for histology. Verification of patient identification for the specimen was done. Estimated blood loss was minimal. Exudate was found in the entire colon. Fluid aspiration was performed through the scope suction channel. The amount of fluid collected was 100 mL. The fluid cloudy. Sample(s) were sent for bacterial cultures, Clostridium difficile and ova and parasites. Verification of patient identification for the specimen was done. Estimated blood loss was minimal. Impression: - Diffuse moderate mucosal changes were found in the entire examined colon secondary to colitis. Biopsied. - Exudate in the entire examined colon. Fluid aspiration performed. Recommendation: - Return patient to [facility]. - Advance diet as tolerated. - Continue present medications. - Await pathology results. - Repeat colonoscopy is recommended for surveillance. The colonoscopy date will be determined after pathology results from today's exam become available for review. Procedure Code(s): --- Professional --- 23156, Colonoscopy, flexible; with biopsy, single or multiple CPT copyright 2021 [employer]. All rights reserved. The codes documented in this report are preliminary and upon medical insurance coder review may be revised to meet current compliance requirements. West Smith DO 08/08/2023 12:40:26 PM This report has been signed electronically. Number of Addenda: 0 Note Initiated On: 08/08/2023 11:56 AM
[2023-08-08] MEDS: Metoclopramide 10 MG/2 ML Vial IV (13:13)
[2023-08-08] MEDS: 0.9% Saline Lock 10 ML Syringe IV (13:13)
[2023-08-08] MEDS: Morphine 4 MG/ML Syringe IV (13:16)
--- NOTE | 2023-08-08 13:21 | PN_ITS ---
Subjective Subjective Patient seen and examined. She feels well. She had no active complaints. She had an uneventful night. Review of systems otherwise negative. Objective Data Objective Data Vital Signs: Vital Signs Temp Pulse Resp BP Pulse Ox O2 Del Method 97.1 F L 80 18 92/60 100 Room Air 08/08/23 12:47 08/08/23 12:47 08/08/23 12:47 08/08/23 12:47 08/08/23 12:47 08/08/23 12:47 Oxygen Delivery Method Room Air Weight: 130 lb 11.746 oz Body Mass Index (BMI) 21.7 Intake & Output: Intake and Output for Last 24 Hours 08/06/23 08/07/23 08/08/23 23:59 23:59 23:59 Intake Total 1110 / 1110 2883 / 2883 1100 / 1100 Balance 1110 / 1110 2883 / 2883 1100 / 1100 Lab / Micro Data 08/08/23 06:25 08/08/23 06:25 Labs: Laboratory Results - last 24 hr 08/05/23 14:19: CA 19-9 Serial Monitor Not Reportable, CA 125 Ag Serial Mntr Not Reportable 08/07/23 18:05: Urine Test Negative 08/08/23 06:25: WBC 7.6, RBC 3.79 L, Hgb 10.8 L, Hct 33.0 L, MCV 87.1, MCH 28.5, MCHC 32.7, RDW Std Deviation 42.9, RDW Coeff of Audrey 13.5, Plt Count 247, MPV 7.8, Immature Gran % (Auto) 1.200 H, Neut % (Auto) 58.4, Lymph % (Auto) 28.9, [place] % (Auto) 10.7 H, Eos % (Auto) 0.5, Baso % (Auto) 0.3, Absolute Neuts (auto) 4.4, Absolute Lymphs (auto) 2.20, Nucleated RBC % 0, Sodium 137, Potassium 3.0 L , Chloride 105, Carbon Dioxide 24.0, Anion Gap 8, BUN 5 L, Creatinine 0.45 L, Estim Creat Clear Calc 128.60, Est GFR (MDRD) Af Amer 187, Est GFR (MDRD) Non-Af 155, BUN/Creatinine Ratio 11.1, Glucose 98, Calcium 7.2 L, Total Bilirubin 0.30, AST 19, ALT 14, Alkaline Phosphatase 57, Total Protein 6.0 L, Albumin 2.5 L, Globulin 3.5, Albumin/Globulin Ratio 0.7 L Micro: Microbiology 08/05/23 14:17 Fluid - Ascites Gram Stain - Final 08/05/23 14:17 Fluid - Ascites Body Fluid Culture - Final Culture exhibits no growth. 08/05/23 11:35 Blood Culture (Wb) - Anticubital Left Blood Culture - Preliminary No growth in 48 hours. 08/05/23 11:30 Blood Culture (Wb) - Right Wrist Blood Culture - Preliminary No growth in 48 hours. Physical Exam Const alert, oriented x3 and no apparent distress General Appearance: cooperative HEENT normocephalic, head/scalp atraumatic, moist oral mucous membranes and oropharynx normal Eyes PERRL and EOMs intact bilaterally Neck no lymphadenopathy, supple and no JVD Lymph Lymphatic: no lymphadenopathy noted and no lymphedema noted Resp normal respiratory effort, normal air movement and clear to auscultation bilaterally Cardio regular rate, regular rhythm, S1 normal heart sound, S2 normal heart sound and no murmurs GI GI Narrative: moderate abdominal distension, with positive fluid thrill and shifting dullness. Minimal generalised tenderness Extremity normal capillary refill, no clubbing, cyanosis or edema and no calf tenderness General Extremity: no tenderness to palpation of joints or extremities Skin General Skin Exam: no breakdown Neuro CN's II-XII intact bilaterally, no focal motor deficits, no sensory deficits noted and deep tendon reflexes 2+ bilaterally Motor Exam: strength 5/5 throughout and general weakness Psych thought process normal and cooperative Appearance: appropriate Assessment & Plan Assessment/Plan (1) Ascites: QUALIFIERS: Ascites type: other type Qualified Code(s): R18.8 - Other ascites PLAN: Plan #New onset ascites * etiology is unclear. * had paracentesis with removal of 400cc on admission 2 days ago. * CT of the abdomen and pelvis showed diffuse ascites with diffuse inflammatory changes seen throughout the colon worse in the right hemicolon with dilatation of the ascending colon, firoid uerus and stable bilateral renal cysts * transvaginal USG showed fibroid uterus with fluid in the pelvis and IUD seen in the endometrium. Both ovaries werent visualised. * ascitic fluid polymorphonuclear wbcs are 0.243, and so doesnt meet criteria for SBP, though she is on IV zosyn for presumed SBP. * fluid cytology negative for malignant cells. * CEA, CA 125, CA 19-9, ESR and CRP ordered * GI consulted. recommends EGD and colonoscopy today * CEA antigen normal; CA125 elevated. * ascitic fluid cultures neative for any growth so far, no cells or organisms seen * 2D echo showed EF of 55%, unable to assess diastolic dysfunction and small pericardial effusion. wbc has trended up to 13 today; await GI recs before discontinuing antibiotics. * #Hyponatremia:resolved. Sodium is 137 today. #Hyponatremia: Potassium is 3. Will replace and trend. #History of microscopic colitis * Diagnosed prior colonoscopy a few months ago. On budesonide. Will continue budesonide and mesalamine. * currently not having any diarrhea. #History of melanoma: Says it was resected. This was about a decade ago. fluid cytology negative for malignant cells. #Nicotine dependence: counseled to quit. Nicotine patch 21mg daily DVT prophylaxis; lovenox Charges/Coding Visit Charges Inpatient E&M: 24646 Subs Hosp L2
[2023-08-09 03:40] VITALS: BP 94/69; PULSE 64; RESP 17; TEMP 36.7; O2SAT 95
[2023-08-09] MEDS: Piperacil/Tazobactam 3.375 GM in 0.9% Normal Saline (50mL MB+) 50 ML IV ×3 (05:44→21:40)
[2023-08-09 06:00] VITALS: BMI 21.7
[2023-08-09 06:04] LABS: Absolute Lymphocyte Count 2.07 X10^3/uL (0.83-4.51); Absolute Neutrophil Count 2.3 X10^3/uL (2.0-7.7); Basophil# 0.01 X10^3/uL; Basophil% 0.2 % (0-1); Eosinophil# 0.02 X10^3/uL; Eosinophils% 0.4 % (0-5); Hematocrit 28.8 % (37-47); Hemoglobin 9.1 g/dL (12.0-15.0); Lymphocyte # 2.07 X10^3/ul (0.83-4.51); Lymphocyte % 40.7 % (19-41); Mean Corp Hgb Conc 31.6 g/dL (32-36); Mean Corpuscular Hgb 27.8 pg (27.0-32.0); Mean Corpuscular Volume 88.1 fL (81-99); Mean Platelet Vol. 8.3 fl (6.2-12.0); Monocyte% 11.8 % (0-10); NRBC Flagged by Analyzer 0 % (0-5); Neutrophil # 2.34 X10^3/uL (2.7-7.7); Neutrophil % 45.9 % (47-70); POSITIVE MORPHOLOGY YES; Platelet Count 209 K/mm3 (150-450); RBC Distribution Width CV 13.6 % (11.6-14.6); RBC Distribution Width SD 44.4 fl (35.1-43.9); Red Blood Count 3.27 M/mm3 (4.2-5.4); White Blood Count 5.1 K/mm3 (4.4-11.0)
[2023-08-09 06:16] LABS: Differential Indicated SCAN CRITERIA MET
[2023-08-09 06:33] LABS: ALB/GLOB Ratio 0.7 RATIO (0.9-2.4); AST(SGOT) 15 U/L (15-37); Alanine Aminotransfer ALT/SGPT 14 U/L (13-56); Albumin, Serum 2.3 g/dL (3.2-5.0); Alkaline Phosphatase 52 U/L (45-117); Anion Gap 6 (5-15); BUN 6 mg/dL (7-18); BUN/Creat Ratio 16.8 RATIO (10-20); Calcium,Total 7.7 mg/dL (8.5-10.1); Chloride 109 mmol/L (98-107); Creatinine, Serum 0.36 mg/dL (0.55-1.02); EST Glomerular Filtration Rate 201 mL/min (>60); Est Glom Filt Rate - Afr Amer 243 mL/min (>60); Estimated Creatinine Clearance 160.75 ml/min; Globulin 3.1 g/dL (2.2-4.2); Glucose 95 mg/dL (74-106); Potassium 3.3 mmol/L (3.5-5.1); Protein, Total 5.4 g/dL (6.4-8.2); Sodium Level 141 mmol/L (136-145)
[2023-08-09 06:47] LABS: Differential Comment SCANNED
[2023-08-09 08:12] VITALS: BP 99/74; PULSE 76; RESP 12; TEMP 36.6; O2SAT 99
[2023-08-09] MEDS: Budesonide 3 MG CAPSULE.EC 9 MG PO (10:05)
--- NOTE | 2023-08-09 10:40 | NURSING ---
Per Munira Whitley patient does not need to be in cdiff isolation
[2023-08-09 13:40] VITALS: BP 139/109; PULSE 83; RESP 14; TEMP 36.7; O2SAT 100
[2023-08-09] MEDS: 0.9% Saline Lock 10 ML Syringe IV (13:43)
--- NOTE | 2023-08-09 13:54 | PN_ITS ---
Subjective Subjective Patient seen and examined. She complained of having some diarrhea overnight. She however did receive a colon prep yesterday. Review of systems is otherwise negative. Objective Data Objective Data Vital Signs: Vital Signs Temp Pulse Resp BP Pulse Ox O2 Del Method 98.1 F 83 14 139/109 H 100 Room Air 08/09/23 13:40 08/09/23 13:40 08/09/23 13:40 08/09/23 13:40 08/09/23 13:40 08/09/23 13:40 Oxygen Delivery Method Room Air Weight: 130 lb 4.691 oz Body Mass Index (BMI) 21.7 Intake & Output: Intake and Output for Last 24 Hours 08/07/23 08/08/23 08/09/23 23:59 23:59 23:59 Intake Total 2883 / 2883 1150 / 1150 600 / 600 Balance 2883 / 2883 1150 / 1150 600 / 600 Lab / Micro Data 08/09/23 05:39 08/09/23 05:39 Labs: Laboratory Results - last 24 hr 08/05/23 14:17: Miscellaneous Cytology SEE PATHOLOGY REPORT 08/09/23 05:39: WBC 5.1, RBC 3.27 L, Hgb 9.1 L, Hct 28.8 L, MCV 88.1, MCH 27.8, MCHC 31.6 L, RDW Std Deviation 44.4 H, RDW Coeff of Audrey 13.6, Plt Count 209, MPV 8.3, Immature Gran % (Auto) 1.000 H, Neut % (Auto) 45.9 L, Lymph % (Auto) 40.7, [place] % (Auto) 11.8 H, Eos % (Auto) 0.4, Baso % (Auto) 0.2, Absolute Neuts (auto) 2.3, Absolute Lymphs (auto) 2.07, Nucleated RBC % 0, Differential Comment SCANNED, Sodium 141, Potassium 3.3 L, Chloride 109 H, Carbon Dioxide 26.0, Anion Gap 6, BUN 6 L, Creatinine 0.36 L, Estim Creat Clear Calc 160.75, Est GFR (MDRD) Af Amer 243, Est GFR (MDRD) Non-Af 201, BUN/Creatinine Ratio 16.8, Glucose 95, Calcium 7.7 L, Total Bilirubin 0.20, AST 15, ALT 14, Alkaline Phosphatase 52, Total Protein 5.4 L, Albumin 2.3 L, Globulin 3.1, Albumin/Globulin Ratio 0.7 L Micro: Microbiology 08/08/23 12:21 Stool Enteric Bacteriology - Final 08/08/23 12:21 Stool C. difficile GDH Antigen & Toxins - Final 08/08/23 12:21 Stool C. difficile DNA Amplification - Final 08/05/23 14:17 Fluid - Ascites Gram Stain - Final 08/05/23 14:17 Fluid - Ascites Body Fluid Culture - Final Culture exhibits no growth. 08/05/23 11:35 Blood Culture (Wb) - Anticubital Left Blood Culture - Preliminary No growth in 48 hours. 08/05/23 11:30 Blood Culture (Wb) - Right Wrist Blood Culture - Preliminary No growth in 48 hours. Physical Exam Const alert, oriented x3 and no apparent distress General Appearance: cooperative HEENT normocephalic, head/scalp atraumatic, moist oral mucous membranes and oropharynx normal Eyes PERRL and EOMs intact bilaterally Neck no lymphadenopathy, supple and no JVD Lymph Lymphatic: no lymphadenopathy noted and no lymphedema noted Resp normal respiratory effort, normal air movement and clear to auscultation bilaterally Cardio regular rate, regular rhythm, S1 normal heart sound, S2 normal heart sound and no murmurs GI GI Narrative: moderate abdominal distension, with positive fluid thrill and shifting dullness. Minimal generalised tenderness Extremity normal capillary refill, no clubbing, cyanosis or edema and no calf tenderness General Extremity: no tenderness to palpation of joints or extremities Skin General Skin Exam: no breakdown Neuro CN's II-XII intact bilaterally, no focal motor deficits, no sensory deficits noted and deep tendon reflexes 2+ bilaterally Motor Exam: strength 5/5 throughout and general weakness Psych thought process normal and cooperative Appearance: appropriate Assessment & Plan Assessment/Plan (1) Ascites: QUALIFIERS: Ascites type: other type Qualified Code(s): R18.8 - Other ascites PLAN: Plan #New onset ascites * etiology is unclear. * had paracentesis with removal of 400cc on admission 2 days ago. * CT of the abdomen and pelvis showed diffuse ascites with diffuse inflammatory changes seen throughout the colon worse in the right hemicolon with dilatation of the ascending colon, firoid uerus and stable bilateral renal cysts * transvaginal USG showed fibroid uterus with fluid in the pelvis and IUD seen in the endometrium. Both ovaries werent visualised. * ascitic fluid polymorphonuclear wbcs are 0.243, and so doesnt meet criteria for SBP, though she is on IV zosyn for presumed SBP. * fluid cytology negative for malignant cells. * GI consulted. recommends EGD and colonoscopy today * CEA antigen normal; CA125 elevated. * ascitic fluid cultures neative for any growth so far, no cells or organisms seen * 2D echo showed EF of 55%, unable to assess diastolic dysfunction and small pe ricardial effusion. wbc has trended up to 13 today; await GI recs before discontinuing antibiotics. * She had colonoscopy today which diffuse moderate mucosal changes in the entire examined colon secondary to colitis. * EGD showed normal esophagus and chronic gastritis as well as erythematous duodenopathy * #Positive C Diff * C Diff testing showed positive PCR but toxin was negative. Diarrhea may also be due to colonoscopy prep * discussed with ID-Dr Lara- who recommends not to treat and monitor for now. * #Hyponatremia:resolved. Sodium is 137 today. #Hyponatremia: Potassium is 3.3 today. Will replace and trend. #History of microscopic colitis * Diagnosed prior colonoscopy a few months ago. On budesonide. Will continue budesonide and mesalamine. * currently not having any diarrhea. #History of melanoma: Says it was resected. This was about a decade ago. fluid cytology negative for malignant cells. #Nicotine dependence: counseled to quit. Nicotine patch 21mg daily DVT prophylaxis; lovenox Charges/Coding Visit Charges Inpatient E&M: 99178 Subs Hosp L2
[2023-08-09] MEDS: Potassium Chloride Oral Tablet 20 MEQ 40 MEQ PO (15:51)
--- NOTE | 2023-08-09 15:56 | CASEMGMT ---
Per nursing admission questions patient does not have a Healthcare Power of Habilitation Worker or Healthcare Living Will and is not interested in documents. Saima Doe PEARL FISHERMAN BONI
--- NOTE | 2023-08-09 16:21 | PN.GI_ITS ---
Subjective Subjective Patient underwent EGD and colonoscopy yesterday. She was discovered to have some erythema gastric antrum and body. Did not appear to be H. pylori but the biopsies are pending. Colonoscopy had shown inflammation and swelling with possible pseudomembranes in the colon.. Stool cultures and C. difficile toxin were taken during the colonoscopy. She is still having some intermittent diarrhea. Objective Data Objective Data Vital Signs: Vital Signs Temp Pulse Resp BP Pulse Ox O2 Del Method 98.1 F 83 14 139/109 H 100 Room Air 08/09/23 13:40 08/09/23 13:40 08/09/23 13:40 08/09/23 13:40 08/09/23 13:40 08/09/23 13:40 Oxygen Delivery Method Room Air Weight: 130 lb 4.691 oz Body Mass Index (BMI) 21.7 Intake & Output: Intake and Output for Last 24 Hours 08/07/23 08/08/23 08/09/23 23:59 23:59 23:59 Intake Total 2883 / 2883 1150 / 1150 600 / 600 Balance 2883 / 2883 1150 / 1150 600 / 600 Lab / Micro Data 08/09/23 05:39 08/09/23 05:39 Labs: Laboratory Results - last 24 hr 08/05/23 14:17: Miscellaneous Cytology SEE PATHOLOGY REPORT 08/09/23 05:39: WBC 5.1, RBC 3.27 L, Hgb 9.1 L, Hct 28.8 L, MCV 88.1, MCH 27.8, MCHC 31.6 L, RDW Std Deviation 44.4 H, RDW Coeff of Audrey 13.6, Plt Count 209, MPV 8.3, Immature Gran % (Auto) 1.000 H, Neut % (Auto) 45.9 L, Lymph % (Auto) 40.7, [place] % (Auto) 11.8 H, Eos % (Auto) 0.4, Baso % (Auto) 0.2, Absolute Neuts (auto) 2.3, Absolute Lymphs (auto) 2.07, Nucleated RBC % 0, Differential Comment SCANNED, Sodium 141, Potassium 3.3 L, Chloride 109 H, Carbon Dioxide 26.0, Anion Gap 6, BUN 6 L, Creatinine 0.36 L, Estim Creat Clear Calc 160.75, Est GFR (MDRD) Af Amer 243, Est GFR (MDRD) Non-Af 201, BUN/Creatinine Ratio 16.8, Glucose 95, Calcium 7.7 L, Total Bilirubin 0.20, AST 15, ALT 14, Alkaline Phosphatase 52, Total Protein 5.4 L, Albumin 2.3 L, Globulin 3.1, Albumin/Globulin Ratio 0.7 L Micro: Microbiology 08/08/23 12:21 Stool Enteric Bacteriology - Final 08/08/23 12:21 Stool C. difficile GDH Antigen & Toxins - Final 08/08/23 12:21 Stool C. difficile DNA Amplification - Final 08/05/23 14:17 Fluid - Ascites Gram Stain - Final 08/05/23 14:17 Fluid - Ascites Body Fluid Culture - Final Culture exhibits no growth. 08/05/23 11:35 Blood Culture (Wb) - Anticubital Left Blood Culture - Preliminary No growth in 48 hours. 08/05/23 11:30 Blood Culture (Wb) - Right Wrist Blood Culture - Preliminary No growth in 48 hours. Physical Exam Const alert, oriented x3 and no apparent distress General Appearance: cooperative HEENT normocephalic, head/scalp atraumatic, moist oral mucous membranes and oropharynx normal Eyes PERRL and EOMs intact bilaterally Neck no lymphadenopathy, supple and no JVD Lymph Lymphatic: no lymphadenopathy noted and no lymphedema noted Resp normal respiratory effort, normal air movement and clear to auscultation bilaterally Cardio regular rate, regular rhythm, S1 normal heart sound, S2 normal heart sound and no murmurs GI GI Narrative: moderate abdominal distension, with positive fluid thrill and shifting dullness. Minimal generalised tenderness Extremity normal capillary refill, no clubbing, cyanosis or edema and no calf tenderness General Extremity: no tenderness to palpation of joints or extremities Skin General Skin Exam: no breakdown Neuro CN's II-XII intact bilaterally, no focal motor deficits, no sensory deficits noted and deep tendon reflexes 2+ bilaterally Motor Exam: strength 5/5 throughout and general weakness Psych thought process normal and cooperative Appearance: appropriate Assessment & Plan Assessment/Plan (1) Colitis: PLAN: Plan This is 52-year-old female is being admitted for 2 weeks of severe abdominal pain and bloating with new onset ascites and history of microscopic colitis Acute pancolitis: Exact etiology unclear. Await biopsies. Patient is on an tibiotics at this time. Stool for enteric bacteriology panel and C. difficile are negative. She is PCR positive but toxin negative for C. difficile CT abdomen usually reviewed and shows small right paracolic gutter fluid which is unlikely secondary to microperforation. CT does not report microperforation but diffuse thickening of colon from transverse colon to rectum. Supportive treatment for nausea vomiting and oxycodone, Bentyl and IV morphine abdominal pain. Lactic acid normal. Enteric bacteriology panel negative for Campylobacter, Salmonella, Shigella with Shiga toxin, Yersinia, vibrio, rotavirus and norovirus. WBC lactoferrin positive suggestive of inflammatory/infectious colitis. C. difficile PCR negative. Her autoimmune labs including tissue transglutaminase for celiac disease and REFUGIO for vasculitis are negative. Tap on the differential diagnosis is still Giardia infection with underlying ischemic colitis. elevated CA125 in the setting of new onset ascites concerning. She will likely need percutaneous biopsy of the peritoneal. Repeat diagnostic and therapeutic paracentesis. Continue antibiotics and check stool for alpha-1 antitrypsin which can help identify protein-losing today which also can cause ascites in the setting of microscopic colitis. Charges/Coding Visit Charges Inpatient E&M: 03508 Subs Hosp L3
[2023-08-09 21:41] VITALS: BP 97/70; PULSE 61; RESP 16; TEMP 36.6; O2SAT 98
[2023-08-10 02:53] VITALS: BMI 21.7
[2023-08-10 03:40] VITALS: BP 93/71; PULSE 70; RESP 18; TEMP 37.2; O2SAT 96
[2023-08-10] MEDS: Piperacil/Tazobactam 3.375 GM in 0.9% Normal Saline (50mL MB+) 50 ML IV ×3 (05:14→22:09)
[2023-08-10 08:48] LABS: Absolute Lymphocyte Count 2.76 X10^3/uL (0.83-4.51); Absolute Neutrophil Count 2.8 X10^3/uL (2.0-7.7); Basophil# 0.05 X10^3/uL; Basophil% 0.8 % (0-1); Eosinophil# 0.04 X10^3/uL; Eosinophils% 0.6 % (0-5); Hematocrit 34.6 % (37-47); Hemoglobin 10.7 g/dL (12.0-15.0); Lymphocyte # 2.76 X10^3/ul (0.83-4.51); Lymphocyte % 44.3 % (19-41); Mean Corp Hgb Conc 30.9 g/dL (32-36); Mean Corpuscular Hgb 28.3 pg (27.0-32.0); Mean Corpuscular Volume 91.5 fL (81-99); Mean Platelet Vol. 10.3 fl (6.2-12.0); Monocyte# 0.48 X10^3/uL; Monocyte% 7.7 % (0-10); NRBC Flagged by Analyzer 0 % (0-5); Neutrophil # 2.84 X10^3/uL (2.7-7.7); Neutrophil % 45.6 % (47-70); POSITIVE MORPHOLOGY YES; Platelet Count 103 K/mm3 (150-450); RBC Distribution Width CV 13.6 % (11.6-14.6); RBC Distribution Width SD 45.8 fl (35.1-43.9); Red Blood Count 3.78 M/mm3 (4.2-5.4); White Blood Count 6.2 K/mm3 (4.4-11.0)
[2023-08-10 08:58] LABS: Differential Indicated SCAN CRITERIA MET
[2023-08-10 09:19] LABS: ALB/GLOB Ratio 0.7 RATIO (0.9-2.4); AST(SGOT) 17 U/L (15-37); Alanine Aminotransfer ALT/SGPT 19 U/L (13-56); Albumin, Serum 2.5 g/dL (3.2-5.0); Alkaline Phosphatase 58 U/L (45-117); Anion Gap 4 (5-15); BUN 11 mg/dL (7-18); BUN/Creat Ratio 21.8 RATIO (10-20); Calcium,Total 8.4 mg/dL (8.5-10.1); Chloride 110 mmol/L (98-107); EST Glomerular Filtration Rate 135 mL/min (>60); Est Glom Filt Rate - Afr Amer 163 mL/min (>60); Estimated Creatinine Clearance 115.74 ml/min; Globulin 3.7 g/dL (2.2-4.2); Glucose 93 mg/dL (74-106); Potassium 3.4 mmol/L (3.5-5.1); Protein, Total 6.2 g/dL (6.4-8.2); Sodium Level 140 mmol/L (136-145)
[2023-08-10] MEDS: Budesonide 3 MG CAPSULE.EC 9 MG PO (09:52)
[2023-08-10 09:53] VITALS: BP 95/66; PULSE 83; RESP 16; TEMP 36.9; O2SAT 99
[2023-08-10 11:54] LABS: Differential Comment SCANNED; Reactive Lymphocyte 1+
[2023-08-10 12:08] LABS: Albumin, Body Fluid 2.5 g/dL (Not Estab.)
[2023-08-10] MEDS: 0.9% Saline Lock 10 ML Syringe IV ×2 (14:02→22:09)
[2023-08-10] MEDS: oxyCODONE 5 MG Tablet PO (14:09)
--- NOTE | 2023-08-10 14:24 | PN_ITS ---
Subjective Subjective Patient seen and examined. She has no complaints today and feels well. She had an uneventful night. Review of systems otherwise negative. She has otherwise remained hemodynamically stable. Objective Data Objective Data Vital Signs: Vital Signs Temp Pulse Resp BP Pulse Ox O2 Del Method 98.4 F 83 16 95/66 99 Room Air 08/10/23 09:53 08/10/23 09:53 08/10/23 09:53 08/10/23 09:53 08/10/23 09:53 08/10/23 09:53 Oxygen Delivery Method Room Air Weight: 130 lb 11.746 oz Body Mass Index (BMI) 21.7 Intake & Output: Intake and Output for Last 24 Hours 08/08/23 08/09/23 08/10/23 23:59 23:59 23:59 Intake Total 1150 / 1150 890 / 1290 600 / 600 Balance 1150 / 1150 890 / 1290 600 / 600 Lab / Micro Data 08/10/23 08:25 08/10/23 08:25 Labs: Laboratory Results - last 24 hr 08/05/23 13:07: Fluid Albumin 2.5 08/10/23 08:25: WBC 6.2, RBC 3.78 L, Hgb 10.7 L, Hct 34.6 L, MCV 91.5, MCH 28.3, MCHC 30.9 L, RDW Std Deviation 45.8 H, RDW Coeff of Audrey 13.6, Plt Count 103 L, MPV 10.3, Immature Gran % (Auto) 1.000 H, Neut % (Auto) 45.6 L, Lymph % (Auto) 44.3 H, [place] % (Auto) 7.7, Eos % (Auto) 0.6, Baso % (Auto) 0.8, Absolute Neuts (auto) 2.8, Absolute Lymphs (auto) 2.76, Nucleated RBC % 0, Differential Comment SCANNED, Reactive Lymphocytes 1+, Sodium 140, Potassium 3.4 L, Chloride 110 H, Carbon Dioxide 26.0, Anion Gap 4 L, BUN 11, Creatinine 0.50 L, Estim Creat Clear Calc 115.74, Est GFR (MDRD) Af Amer 163, Est GFR (MDRD) Non-Af 135, BUN/Creatinine Ratio 21.8 H, Glucose 93, Calcium 8.4 L, Total Bilirubin 0.20, AST 17, ALT 19, Alkaline Phosphatase 58, Total Protein 6.2 L, Albumin 2.5 L, Globulin 3.7, Albumin/Globulin Ratio 0.7 L Micro: Microbiology 08/05/23 14:17 Fluid - Ascites Gram Stain - Final 08/05/23 14:17 Fluid - Ascites Body Fluid Culture - Final Culture exhibits no growth. 08/05/23 14:17 Fluid - Ascites Anaerobic Culture - Final No growth in 5 days. 08/05/23 11:35 Blood Culture (Wb) - Anticubital Left Blood Culture - Final No growth in 5 days. 08/05/23 11:30 Blood Culture (Wb) - Right Wrist Blood Culture - Final No growth in 5 days. 08/08/23 12:21 Stool Enteric Bacteriology - Final 08/08/23 12:21 Stool C. difficile GDH Antigen & Toxins - Final 08/08/23 12:21 Stool C. difficile DNA Amplification - Final Physical Exam Const alert, oriented x3 and no apparent distress General Appearance: cooperative HEENT normocephalic, head/scalp atraumatic, moist oral mucous membranes and oropharynx normal Eyes PERRL and EOMs intact bilaterally Neck no lymphadenopathy, supple and no JVD Lymph Lymphatic: no lymphadenopathy noted and no lymphedema noted Resp normal respiratory effort, normal air movement and clear to auscultation bilaterally Cardio regular rate, regular rhythm, S1 normal heart sound, S2 normal heart sound and no murmurs GI GI Narrative: moderate abdominal distension, with positive fluid thrill and shifting dullness. Minimal generalised tenderness Extremity normal capillary refill, no clubbing, cyanosis or edema and no calf tenderness General Extremity: no tenderness to palpation of joints or extremities Skin General Skin Exam: no breakdown Neuro CN's II-XII intact bilaterally, no focal motor deficits, no sensory deficits noted and deep tendon reflexes 2+ bilaterally Motor Exam: strength 5/5 throughout and general weakness Psych thought process normal and cooperative Appearance: appropriate Assessment & Plan Assessment/Plan (1) Ascites: QUALIFIERS: Ascites type: other type Qualified Code(s): R18.8 - Other ascites PLAN: Plan #New onset ascites * etiology is unclear. * had paracentesis with removal of 400cc on admission * CT of the abdomen and pelvis showed diffuse ascites with diffuse inflammatory changes seen throughout the colon worse in the right hemicolon with dilatation of the ascending colon, firoid uerus and stable bilateral renal cysts * transvaginal USG showed fibroid uterus with fluid in the pelvis and IUD seen in the endometrium. Both ovaries werent visualised. * ascitic fluid polymorphonuclear wbcs are 0.243, and so doesnt meet criteria for SBP, though she is on IV zosyn for presumed SBP. * fluid cytology negative for malignant cells. * CEA antigen normal; CA125 elevated. * ascitic fluid cultures negative for any growth so far, no cells or organisms seen * 2D echo showed EF of 55%, unable to assess diastolic dysfunction and small pericardial effusion. wbc has trended up to 13 today; await GI recs before discontinuing antibiotics. * She had colonoscopy which diffuse moderate mucosal changes in the entire examined colon secondary to colitis. * EGD showed normal esophagus and chronic gastritis as well as erythematous duodenopathy * To have repeat paracentesis, and per GI, will likely need peritoneal biopsy to rule out any malignancy. * #Positive C Diff * C Diff testing showed positive PCR but toxin was negative. Diarrhea may also be due to colonoscopy prep * discussed with ID-Dr Lara- who recommends not to treat and monitor for now. * #Hyponatremia:resolved. Sodium is 137 today. #Hyponatremia: Potassium is 3.4 today. Will replace and trend. #History of microscopic colitis * Diagnosed prior colonoscopy a few months ago. On budesonide. Will continue budesonide and mesalamine. * currently not having any diarrhea. #History of melanoma: Says it was resected. This was about a decade ago. fluid cytology negative for malignant cells. #Nicotine dependence: counseled to quit. Nicotine patch 21mg daily DVT prophylaxis; lovenox Charges/Coding Visit Charges Inpatient E&M: 14537 Subs Hosp L2
[2023-08-10] MEDS: Potassium Chloride Oral Tablet 20 MEQ 40 MEQ PO (16:24)
[2023-08-10 16:27] VITALS: BP 99/75; PULSE 71; RESP 16; TEMP 37.1; O2SAT 98
--- NOTE | 2023-08-10 22:11 | EX.PCM.PN.GI ---
Subjective Subjective Patient is doing well without any complaint. Her abdomen still feels distended. Objective Data Objective Data Vital Signs: Vital Signs Temp Pulse Resp BP Pulse Ox O2 Del Method 98.7 F 71 16 99/75 98 Room Air 08/10/23 16:27 08/10/23 16:27 08/10/23 16:27 08/10/23 16:27 08/10/23 16:27 08/10/23 16:27 Oxygen Delivery Method Room Air Weight: 130 lb 11.746 oz Body Mass Index (BMI) 21.7 Intake & Output: Intake and Output for Last 24 Hours 08/08/23 08/09/23 08/10/23 23:59 23:59 23:59 Intake Total 1150 / 1150 890 / 1290 1730 / 1730 Balance 1150 / 1150 890 / 1290 1730 / 1730 Lab / Micro Data 08/10/23 08:25 08/10/23 08:25 Labs: Laboratory Results - last 24 hr 08/05/23 13:07: Fluid Albumin 2.5 08/10/23 08:25: WBC 6.2, RBC 3.78 L, Hgb 10.7 L, Hct 34.6 L, MCV 91.5, MCH 28.3, MCHC 30.9 L, RDW Std Deviation 45.8 H, RDW Coeff of Audrey 13.6, Plt Count 103 L, MPV 10.3, Immature Gran % (Auto) 1.000 H, Neut % (Auto) 45.6 L, Lymph % (Auto) 44.3 H, [place] % (Auto) 7.7, Eos % (Auto) 0.6, Baso % (Auto) 0.8, Absolute Neuts (auto) 2.8, Absolute Lymphs (auto) 2.76, Nucleated RBC % 0, Differential Comment SCANNED, Reactive Lymphocytes 1+, Sodium 140, Potassium 3.4 L, Chloride 110 H, Carbon Dioxide 26.0, Anion Gap 4 L, BUN 11, Creatinine 0.50 L, Estim Creat Clear Calc 115.74, Est GFR (MDRD) Af Amer 163, Est GFR (MDRD) Non-Af 135, BUN/Creatinine Ratio 21.8 H, Glucose 93, Calcium 8.4 L, Total Bilirubin 0.20, AST 17, ALT 19, Alkaline Phosphatase 58, Total Protein 6.2 L, Albumin 2.5 L, Globulin 3.7, Albumin/Globulin Ratio 0.7 L Micro: Microbiology 08/05/23 14:17 Fluid - Ascites Gram Stain - Final 08/05/23 14:17 Fluid - Ascites Body Fluid Culture - Final Culture exhibits no growth. 08/05/23 14:17 Fluid - Ascites Anaerobic Culture - Final No growth in 5 days. 08/05/23 11:35 Blood Culture (Wb) - Anticubital Left Blood Culture - Final No growth in 5 days. 08/05/23 11:30 Blood Culture (Wb) - Right Wrist Blood Culture - Final No growth in 5 days. 08/08/23 12:21 Stool Enteric Bacteriology - Final 08/08/23 12:21 Stool C. difficile GDH Antigen & Toxins - Final 08/08/23 12:21 Stool C. difficile DNA Amplification - Final Physical Exam Const alert, oriented x3 and no apparent distress General Appearance: cooperative HEENT normocephalic, head/scalp atraumatic, moist oral mucous membranes and oropharynx normal Eyes PERRL and EOMs intact bilaterally Neck no lymphadenopathy, supple and no JVD Lymph Lymphatic: no lymphadenopathy noted and no lymphedema noted Resp normal respiratory effort, normal air movement and clear to auscultation bilaterally Cardio regular rate, regular rhythm, S1 normal heart sound, S2 normal heart sound and no murmurs GI GI Narrative: moderate abdominal distension, with positive fluid thrill and shifting dullness. Minimal generalised tenderness Extremity normal capillary refill, no clubbing, cyanosis or edema and no calf tenderness General Extremity: no tenderness to palpation of joints or extremities Skin General Skin Exam: no breakdown Neuro CN's II-XII intact bilaterally, no focal motor deficits, no sensory deficits noted and deep tendon reflexes 2+ bilaterally Motor Exam: strength 5/5 throughout and general weakness Psych thought process normal and cooperative Appearance: appropriate Assessment & Plan Assessment/Plan (1) Colitis: PLAN: Plan This is 52-year-old female is being admitted for 2 weeks of severe abdominal pain and bloating with new onset ascites and history of microscopic colitis Acute pancolitis: Exact etiology unclear. Await biopsies. Patient is on antibiotics at this time. Stool for enteric bacteriology panel and C. difficile are negative. She is PCR positive but toxin negative for C. difficile CT abdomen usually reviewed and shows small right paracolic gutter fluid which is unlikely secondary to microperforation. CT does not report microperforation but diffuse thickening of colon from transverse colon to rectum. Supportive treatment for nausea vomiting and oxycodone, Bentyl and IV morphine abdominal pain. Lactic acid normal. Enteric bacteriology panel negative for Campylobacter, Salmonella, Shigella with Shiga toxin, Yersinia, vibrio, rotavirus and norovirus. WBC lactoferrin positive suggestive of inflammatory/infectious colitis. C. difficile PCR negative. Her autoimmune labs including tissue transglutaminase for celiac disease and REFUGIO for vasculitis are negative. Tap on the differential diagnosis is still Giardia infection with underlying ischemic colitis. elevated CA125 in the setting of new onset ascites concerning. She will likely need percutaneous biopsy of the peritoneal. Repeat diagnostic and therapeutic paracentesis. Continue antibiotics and check stool for alpha-1 antitrypsin which can help identify protein-losing today which also can cause ascites in the setting of microscopic colitis. 08/10- She does not have any particular complaints at this time. She still does complain of diarrhea.. I reviewed the biopsies from the colonoscopy and it does show a lot of findings of an acute colitis. Her Cdiff PCR is positive with fecal leukocytes positive, indicating some type of infectious colitis or Inflammatory colitis. The differential diagnosis for new onset, ascites with an inflammatory or infectious colitis in the [place], would be histoplasmosis and a patient with immunosuppression being on immunosuppressive therapy. She does not have cirrhosis, and a saag gradient was not calculated when she did her initial paracentesis. I agree with her getting a peritoneal biopsy. I will send the stool for histoplasmosis, CMV. . It is less likely that she has ulcerative colitis on budesonide, but it is on a different diagnosis. This has been going on at least for the last four months and she's had a recent colonoscopy by Dr. Berman and a colonoscopy by myself two days ago. I will also send stool for Alpha 1 antitrypsin in for autoimmune enteritis. Charges/Coding Visit Charges Inpatient E&M: 39067 Subs Hosp L3
[2023-08-10 22:15] VITALS: BP 96/65; PULSE 67; RESP 18; TEMP 36.6; O2SAT 98
[2023-08-10 22:54] LABS: Erythrocyte Sedimentation Rate 3 mm/hr (0-30)
[2023-08-10 23:13] LABS: CRP 8.74 mg/L (0.0-3.0); Free T3 2.1 pg/mL (2.18-3.98); T4 Free Direct 1.17 ng/dL (0.76-1.46)
[2023-08-11 03:23] VITALS: BMI 21.7
[2023-08-11 04:30] VITALS: BP 96/76; PULSE 78; RESP 18; TEMP 36.4; O2SAT 96
[2023-08-11 05:15] LABS: Absolute Lymphocyte Count 3.16 X10^3/uL (0.83-4.51); Absolute Neutrophil Count 2.2 X10^3/uL (2.0-7.7); Basophil# 0.02 X10^3/uL; Basophil% 0.3 % (0-1); Eosinophil# 0.04 X10^3/uL; Eosinophils% 0.7 % (0-5); Hemoglobin 9.7 g/dL (12.0-15.0); Lymphocyte # 3.16 X10^3/ul (0.83-4.51); Lymphocyte % 52.2 % (19-41); Mean Corp Hgb Conc 31.3 g/dL (32-36); Mean Corpuscular Hgb 27.8 pg (27.0-32.0); Mean Corpuscular Volume 88.8 fL (81-99); Mean Platelet Vol. 8.5 fl (6.2-12.0); Monocyte# 0.62 X10^3/uL; Monocyte% 10.2 % (0-10); NRBC Flagged by Analyzer 0 % (0-5); Neutrophil # 2.16 X10^3/uL (2.7-7.7); Neutrophil % 35.8 % (47-70); POSITIVE MORPHOLOGY YES; Platelet Count 264 K/mm3 (150-450); RBC Distribution Width CV 13.7 % (11.6-14.6); RBC Distribution Width SD 44.6 fl (35.1-43.9); Red Blood Count 3.49 M/mm3 (4.2-5.4); White Blood Count 6.1 K/mm3 (4.4-11.0)
[2023-08-11] MEDS: Piperacil/Tazobactam 3.375 GM in 0.9% Normal Saline (50mL MB+) 50 ML IV ×3 (05:17→21:08)
[2023-08-11 05:32] LABS: ALB/GLOB Ratio 0.7 RATIO (0.9-2.4); AST(SGOT) 16 U/L (15-37); Alanine Aminotransfer ALT/SGPT 16 U/L (13-56); Albumin, Serum 2.4 g/dL (3.2-5.0); Alkaline Phosphatase 51 U/L (45-117); Anion Gap 6 (5-15); BUN 14 mg/dL (7-18); BUN/Creat Ratio 27.4 RATIO (10-20); Calcium,Total 8.1 mg/dL (8.5-10.1); Chloride 113 mmol/L (98-107); Creatinine, Serum 0.51 mg/dL (0.55-1.02); Differential Indicated SCAN CRITERIA MET; EST Glomerular Filtration Rate 133 mL/min (>60); Est Glom Filt Rate - Afr Amer 161 mL/min (>60); Estimated Creatinine Clearance 113.47 ml/min; Globulin 3.6 g/dL (2.2-4.2); Glucose 91 mg/dL (74-106); Potassium 3.7 mmol/L (3.5-5.1); Sodium Level 144 mmol/L (136-145)
[2023-08-11 07:04] LABS: Differential Comment SCANNED
[2023-08-11 10:26] VITALS: BP 92/64; PULSE 82; RESP 16; TEMP 36.6; O2SAT 98
[2023-08-11] MEDS: Budesonide 3 MG CAPSULE.EC 9 MG PO (10:27)
[2023-08-11] MEDS: 0.9% Saline Lock 10 ML Syringe IV ×2 (14:06→21:08)
[2023-08-11 16:36] VITALS: BP 99/68; PULSE 82; RESP 16; TEMP 36.8; O2SAT 99
--- NOTE | 2023-08-11 17:04 | PN.HOSP_ITS ---
Reason for Visit Reason for Visit: Diagnoses Noninfective gastroenteritis and colitis, unspecified (08/05/23) Abdominal distension (gaseous) (08/05/23) Other ascites (08/05/23) Subjective Subjective Patient was seen and examined, she is due to undergo another paracentesis tomorrow. Paracentesis fluid were negative for malignant cells. Objective Data Objective Data Vital Signs: Vital Signs Temp Pulse Resp BP Pulse Ox O2 Del Method 98.3 F 82 16 99/68 99 Room Air 08/11/23 16:36 08/11/23 16:36 08/11/23 16:36 08/11/23 16:36 08/11/23 16:36 08/11/23 16:36 Oxygen Delivery Method Room Air Weight: 59.2 kg Body Mass Index (BMI) 21.7 Intake & Output: Intake and Output for Last 24 Hours 08/09/23 08/10/23 08/11/23 23:59 23:59 23:59 Intake Total 890 / 1290 1730 / 1730 513.75 / 513.75 Balance 890 / 1290 1730 / 1730 513.75 / 513.75 Lab / Micro Data 08/11/23 04:45 08/11/23 04:45 Labs: Laboratory Results - last 24 hr 08/10/23 09:25: ESR 3, C-React Prot Ext Range 8.74 H, TSH 3.90 H, Free T4 1.17, Free T3 pg/dL 2.1 L 08/11/23 04:45: WBC 6.1, RBC 3.49 L, Hgb 9.7 L, Hct 31.0 L, MCV 88.8, MCH 27.8, MCHC 31.3 L, RDW Std Deviation 44.6 H, RDW Coeff of Audrey 13.7, Plt Count 264, MPV 8.5, Immature Gran % (Auto) 0.800, Neut % (Auto) 35.8 L, Lymph % (Auto) 52.2 H, [place] % (Auto) 10.2 H, Eos % (Auto) 0.7, Baso % (Auto) 0.3, Absolute Neuts (auto) 2.2, Absolute Lymphs (auto) 3.16, Nucleated RBC % 0, Differential Comment SCANNED, Sodium 144, Potassium 3.7, Chloride 113 H, Carbon Dioxide 25.0, Anion Gap 6, BUN 14, Creatinine 0.51 L, Estim Creat Clear Calc 113.47, Est GFR (MDRD) Af Amer 161, Est GFR (MDRD) Non-Af 133, BUN/Creatinine Ratio 27.4 H, Glucose 91, Calcium 8.1 L, Total Bilirubin 0.30, AST 16, ALT 16, Alkaline Phosphatase 51, Total Protein 6.0 L, Albumin 2.4 L, Globulin 3.6, Albumin/Globulin Ratio 0.7 L Micro: Microbiology 08/05/23 14:17 Fluid - Ascites Gram Stain - Final 08/05/23 14:17 Fluid - Ascites Body Fluid Culture - Final Culture exhibits no growth. 08/05/23 14:17 Fluid - Ascites Anaerobic Culture - Final No growth in 5 days. 08/05/23 11:35 Blood Culture (Wb) - Anticubital Left Blood Culture - Final No growth in 5 days. 08/05/23 11:30 Blood Culture (Wb) - Right Wrist Blood Culture - Final No growth in 5 days. 08/08/23 12:21 Stool Enteric Bacteriology - Final 08/08/23 12:21 Stool C. difficile GDH Antigen & Toxins - Final 08/08/23 12:21 Stool C. difficile DNA Amplification - Final Physical Exam Const alert, oriented x3, no apparent distress and average body habitus General Appearance: cooperative, well kempt and well developed Orientation / Consciousness: awake, oriented to person, oriented to place and oriented to time HEENT normocephalic, head/scalp atraumatic and moist oral mucous membranes Eyes PERRL, EOMs intact bilaterally and conjunctivae normal Neck supple, no JVD, thyroid normal and no carotid bruits General: trachea midline Resp normal respiratory effort, no retractions, no use of accessory muscles and clear to auscultation bilaterally Auscultation: Negative for rales, rhonchi or wheezes Cardio regular rate, regular rhythm, S1 normal heart sound, S2 normal heart sound, no murmurs, no rub and no gallops GI soft to palpation and non-tender GI Narrative: Patient has normal bowel sounds, abdomen is moderately distended, it is nonte nder Extremity no clubbing, cyanosis or edema Skin no rashes or lesions noted General Skin Exam: no breakdown Neuro oriented x3, CN's II-XII intact bilaterally, moves all extremities, no focal motor deficits and no sensory deficits noted Sensorium / Orientation: awake, alert, oriented to person, oriented to place and oriented to time Speech: speech normal Psych affect normal Assessment & Plan Assessment/Plan (1) Ascites: QUALIFIERS: Ascites type: other type Qualified Code(s): R18.8 - Other ascites PLAN: Plan 1. New onset ascites-etiology unclear, patient will undergo a paracentesis tomorrow, gastroenterology is participating in her care #2 mild anemia-etiology unclear at this point, possibly secondary to chronic gastritis and/or colitis, CBC will be monitored #3 chronic gastritis-continue present medications #4 colitis-patient is currently on antibiotics and budesonide Total clinical time spent by myself addressing the patient's medical issues, reviewing all of her data, and collaborating with patient's care team: 25 minutes Charges/Coding Visit Charges Inpatient E&M: 83022 Subs Hosp L1
[2023-08-11] MEDS: oxyCODONE 5 MG Tablet PO (19:34)
[2023-08-11 21:45] VITALS: BP 100/70; PULSE 84; RESP 18; TEMP 36.6; O2SAT 98
[2023-08-12 01:49] VITALS: BMI 21.9
[2023-08-12 03:35] VITALS: BP 104/80; PULSE 75; RESP 18; TEMP 36.3; O2SAT 97
[2023-08-12] MEDS: Piperacil/Tazobactam 3.375 GM in 0.9% Normal Saline (50mL MB+) 50 ML IV ×3 (04:55→22:16)
[2023-08-12 05:37] LABS: Absolute Lymphocyte Count 2.91 X10^3/uL (0.83-4.51); Absolute Neutrophil Count 4.1 X10^3/uL (2.0-7.7); Basophil# 0.05 X10^3/uL; Basophil% 0.6 % (0-1); Eosinophil# 0.07 X10^3/uL; Eosinophils% 0.9 % (0-5); Hematocrit 29.9 % (37-47); Hemoglobin 9.3 g/dL (12.0-15.0); Lymphocyte # 2.91 X10^3/ul (0.83-4.51); Lymphocyte % 36.7 % (19-41); Mean Corp Hgb Conc 31.1 g/dL (32-36); Mean Corpuscular Hgb 27.8 pg (27.0-32.0); Mean Corpuscular Volume 89.3 fL (81-99); Mean Platelet Vol. 8.7 fl (6.2-12.0); Monocyte# 0.68 X10^3/uL; Monocyte% 8.6 % (0-10); NRBC Flagged by Analyzer 0 % (0-5); Neutrophil # 4.14 X10^3/uL (2.7-7.7); Neutrophil % 52.2 % (47-70); POSITIVE MORPHOLOGY YES; Platelet Count 271 K/mm3 (150-450); RBC Distribution Width CV 13.4 % (11.6-14.6); RBC Distribution Width SD 43.8 fl (35.1-43.9); Red Blood Count 3.35 M/mm3 (4.2-5.4); White Blood Count 7.9 K/mm3 (4.4-11.0)
--- NOTE | 2023-08-12 06:00 | US_ITS ---
STUDY: ABDOMINAL ULTRASOUND -ascites survey. REASON FOR VISIT: Female, 53 years old possible ascites. TECHNIQUE: Ultrasound evaluation of the 4 quadrants was performed with real-time and static guerrero-scale imaging. TECHNICAL QUALITY: Adequate. COMPARISON: None. FINDINGS: Trace amount of free fluid is seen in the right upper quadrant. Not enough fluid for safe paracentesis. US/Abdomen Limited IMPRESSION: Not enough fluid for safe paracentesis. Electronically Signed: Ted Membreno MD at 13:49 EST ,
[2023-08-12 06:16] LABS: Differential Indicated SCAN CRITERIA MET
[2023-08-12 08:40] VITALS: BP 92/60; PULSE 74; RESP 18; TEMP 37.2; O2SAT 100
[2023-08-12 08:44] VITALS: O2SAT 100
[2023-08-12 08:55] LABS: Differential Comment SCANNED; Reactive Lymphocyte 1+
[2023-08-12] MEDS: Budesonide 3 MG CAPSULE.EC 9 MG PO (10:17)
[2023-08-12] MEDS: 0.9% Saline Lock 10 ML Syringe IV ×2 (13:52→17:45)
[2023-08-12 13:55] VITALS: BP 98/72; PULSE 88; RESP 18; TEMP 36.8; O2SAT 98
--- NOTE | 2023-08-12 14:25 | PCM.PN.HOSP ---
Subjective Subjective Doing well, continues to have abdominal distention distended colon, there is very little ascitic fluid on CT scan Objective Data Objective Data Vital Signs: Vital Signs Temp Pulse Resp BP Pulse Ox O2 Del Method 98.3 F 88 18 98/72 98 Room Air 08/12/23 13:55 08/12/23 13:55 08/12/23 13:55 08/12/23 13:55 08/12/23 13:55 08/12/23 13:55 Oxygen Delivery Method Room Air Weight: 131 lb 9.855 oz Body Mass Index (BMI) 21.9 Intake & Output: Intake and Output for Last 24 Hours 08/11/23 08/12/23 08/13/23 03:59 03:59 03:59 Intake Total 1373.75 / 1373.75 1018.13 / 1018.13 50 50 Balance 1373.75 / 1373.75 1018.13 / 1018.13 50 Lab / Micro Data 08/12/23 03:50 08/11/23 04:45 Labs: Laboratory Results - last 24 hr 08/12/23 03:50: WBC 7.9, RBC 3.35 L, Hgb 9.3 L, Hct 29.9 L, MCV 89.3, MCH 27.8, MCHC 31.1 L, RDW Std Deviation 43.8, RDW Coeff of Audrey 13.4, Plt Count 271, MPV 8.7, Immature Gran % (Auto) 1.000 H, Neut % (Auto) 52.2, Lymph % (Auto) 36.7, [place] % (Auto) 8.6, Eos % (Auto) 0.9, Baso % (Auto) 0.6, Absolute Neuts (auto) 4.1, Absolute Lymphs (auto) 2.91, Nucleated RBC % 0, Differential Comment SCANNED, Reactive Lymphocytes 1+ Micro: Microbiology 08/05/23 14:17 Fluid - Ascites Gram Stain - Final 08/05/23 14:17 Fluid - Ascites Body Fluid Culture - Final Culture exhibits no growth. 08/05/23 14:17 Fluid - Ascites Anaerobic Culture - Final No growth in 5 days. 08/05/23 11:35 Blood Culture (Wb) - Anticubital Left Blood Culture - Final No growth in 5 days. 08/05/23 11:30 Blood Culture (Wb) - Right Wrist Blood Culture - Final No growth in 5 days. 08/08/23 12:21 Stool Enteric Bacteriology - Final 08/08/23 12:21 Stool C. difficile GDH Antigen & Toxins - Final 08/08/23 12:21 Stool C. difficile DNA Amplification - Final Radiography Diagnostic Testing: Radiology Impression Abdomen Ultrasound 08/12/23 06:00 IMPRESSION: Not enough fluid for safe paracentesis. Electronically Signed: Ted Membreno MD at 13:49 EST , Physical Exam Narrative General: Alert, Oriented x3, Cooperative, No apparent distress HEENT: Atraumatic, PERRLA, EOMI, Normocephalic Oral: Moist Mucosa Neck: Supple, No JVD Lungs: Clear to auscultation, Normal air movement, No rhonchi, No wheeze, No rales Cardiovascular: Regular rate, Regular Rhythm, Normal S1, Normal S2, No murmurs Abdomen: Soft, Non Tender, distended, no Hepato-splenomegaly Extremities: No edema, Capillary Refill Less than 3 Seconds Skin: No rashes, No breakdown Musculoskeletal: No Tenderness to Palpation of Joints or Extremities Neurological: Cranial nerves II-XII grossly intact, Motor Exam 5/5 strength throughout, Sensory exam intact to light touch and pain Psych/Mental Status: Normal Affect, Appropriate Assessment & Plan Assessment/Plan (1) Ascites: QUALIFIERS: Ascites type: other type Qualified Code(s): R18.8 - Other ascites PLAN: Plan 1. New onset mild ascites with enlarged right colon with gastritis and inflammatory versus infectious colitis ? Previous colonic biopsy demonstrated microcolitis ? Continue with budesonide and antibiotics ? Appreciate gastroenterology's assistance ? There was enough fluid today for paracentesis ? CA125 is elevated however not diagnostic for ovarian cancer as she has no obvious ovarian mass on either CT scan or ultrasound I do wonder if the CA125 is a response to peritoneal irritation from an enlarged colon and usually a CA125 should be several orders of magnitude greater than the upper limit of normal for cancer diagnosis ? Her TSH level is a little bit elevated to 3.9 and her free T3 is slightly low at 2.1 I do not believe that this is the cause of her ascites either ? Colonoscopy demonstrated inflammation and EGD demonstrated gastritis ? Ova and parasites on her previous admission were negative, the enteric pathogen panel has also been negative, her C. difficile was negative for antigen and toxin but positive for DNA 2. Mild anemia ? Unclear as to the etiology could be nutritional deficiency ? Will check iron studies DVT: Lovenox Charges/Coding Visit Charges Inpatient E&M: 28526 Subs Hosp L2
[2023-08-12 15:14] LABS: Ferritin 68 ng/mL (8-252); Iron 27 ug/dL (50-170); Iron Binding Capacity,Total 214 ug/dL (250-450); PERCENT IRON SATURATION 12.6 % (15.0-55.0)
--- NOTE | 2023-08-12 15:24 | EX.PCM.PN.GI ---
Subjective Subjective Patient still feels very bloated and distended. She is still having soft liquid bowel movements. Objective Data Objective Data Vital Signs: Vital Signs Temp Pulse Resp BP Pulse Ox O2 Del Method 98.3 F 88 18 98/72 98 Room Air 08/12/23 13:55 08/12/23 13:55 08/12/23 13:55 08/12/23 13:55 08/12/23 13:55 08/12/23 13:55 Oxygen Delivery Method Room Air Weight: 131 lb 9.855 oz Body Mass Index (BMI) 21.9 Intake & Output: Intake and Output for Last 24 Hours 08/10/23 08/11/23 08/12/23 23:59 23:59 23:59 Intake Total 1730 / 1730 1023.75 / 1023.75 88.13 / 88.13 Balance 1730 / 1730 1023.75 / 1023.75 88.13 / 88.13 Lab / Micro Data 08/12/23 03:50 08/11/23 04:45 Labs: Laboratory Results - last 24 hr 08/12/23 03:50: WBC 7.9, RBC 3.35 L, Hgb 9.3 L, Hct 29.9 L, MCV 89.3, MCH 27.8, MCHC 31.1 L, RDW Std Deviation 43.8, RDW Coeff of Audrey 13.4, Plt Count 271, MPV 8.7, Immature Gran % (Auto) 1.000 H, Neut % (Auto) 52.2, Lymph % (Auto) 36.7, [place] % (Auto) 8.6, Eos % (Auto) 0.9, Baso % (Auto) 0.6, Absolute Neuts (auto) 4.1, Absolute Lymphs (auto) 2.91, Nucleated RBC % 0, Differential Comment SCANNED, Reactive Lymphocytes 1+, Iron 27 L, TIBC 214 L, Iron Saturation 12.6 L, Ferritin 68 Micro: Microbiology 08/05/23 14:17 Fluid - Ascites Gram Stain - Final 08/05/23 14:17 Fluid - Ascites Body Fluid Culture - Final Culture exhibits no growth. 08/05/23 14:17 Fluid - Ascites Anaerobic Culture - Final No growth in 5 days. 08/05/23 11:35 Blood Culture (Wb) - Anticubital Left Blood Culture - Final No growth in 5 days. 08/05/23 11:30 Blood Culture (Wb) - Right Wrist Blood Culture - Final No growth in 5 days. 08/08/23 12:21 Stool Enteric Bacteriology - Final 08/08/23 12:21 Stool C. difficile GDH Antigen & Toxins - Final 08/08/23 12:21 Stool C. difficile DNA Amplification - Final Radiography Diagnostic Testing: Radiology Impression Abdomen Ultrasound 08/12/23 06:00 IMPRESSION: Not enough fluid for safe paracentesis. Electronically Signed: Ted Membreno MD at 13:49 EST , Physical Exam Narrative General: Alert, Oriented x3, Cooperative, No apparent distress HEENT: Atraumatic, PERRLA, EOMI, Normocephalic Oral: Moist Mucosa Neck: Supple, No JVD Lungs: Clear to auscultation, Normal air movement, No rhonchi, No wheeze, No rales Cardiovascular: Regular rate, Regular Rhythm, Normal S1, Normal S2, No murmurs Abdomen: Soft, Non Tender, distended, no Hepato-splenomegaly Extremities: No edema, Capillary Refill Less than 3 Seconds Skin: No rashes, No breakdown Musculoskeletal: No Tenderness to Palpation of Joints or Extremities Neurological: Cranial nerves II-XII grossly intact, Motor Exam 5/5 strength throughout, Sensory exam intact to light touch and pain Psych/Mental Status: Normal Affect, Appropriate Assessment & Plan Assessment/Plan (1) Colitis: PLAN: Plan This is 52-year-old female is being admitted for 2 weeks of severe abdominal pain and bloating with new onset ascites and history of microscopic colitis Acute pancolitis: Exact etiology unclear. Await biopsies. Patient is on antibiotics at this time. Stool for enteric bacteriology panel and C. difficile are negative. She is PCR positive but toxin negative for C. difficile CT abdomen usually reviewed and shows small right paracolic gutter fluid which is unlikely secondary to microperforation. CT does not report microperforation but diffuse thickening of colon from transverse colon to rectum. Supportive treatment for nausea vomiting and oxycodone, Bentyl and IV morphine abdominal pain. Lactic acid normal. Enteric bacteriology panel negative for Campylobacter, Salmonella, Shigella with Shiga toxin, Yersinia, vibrio, rotavirus and norovirus. WBC lactoferrin positive suggestive of inflammatory/infectious colitis. C. difficile PCR negative. Her autoimmune labs including tissue transglutaminase for celiac disease and REFUGIO for vasculitis are negative. Tap on the differential diagnosis is still Giardia infection with underlying ischemic colitis. elevated CA125 in the setting of new onset ascites concerning. She will likely need percutaneous biopsy of the peritoneal. Repeat diagnostic and therapeutic paracentesis. Continue antibiotics and check stool for alpha-1 antitrypsin which can help identify protein-losing today which also can cause ascites in the setting of microscopic colitis. 08/10- She does not have any particular complaints at this time. She still does complain of diarrhea.. I reviewed the biopsies from the colonoscopy and it does show a lot of findings of an acute colitis. Her Cdiff PCR is positive with fecal leukocytes positive, indicating some type of infectious colitis or Inflammatory colitis. The differential diagnosis for new onset, ascites with an inflammatory or infectious colitis in the [place], would be histoplasmosis and a patient with immunosuppression being on immunosuppressive therapy. She does not have cirrhosis, and a saag gradient was not calculated when she did her initial paracentesis. I agree with her getting a peritoneal biopsy. I will send the stool for histoplasmosis, CMV. . It is less likely that she has ulcerative colitis on budesonide, but it is on a different diagnosis. This has been going on at least for the last four months and she's had a recent colonoscopy by Dr. Berman and a colonoscopy by myself two days ago. I will also send stool for Alpha 1 antitrypsin in for autoimmune enteritis. 08/12-she still complains of diarrhea. The biopsies from her colon show focal acute colitis with mild crypt abscess. The differential diagnosis would be also ulcerative colitis, Crohn's colitis, infectious colitis. So far all stool studies have been negative for infection. I will start her on empiric steroid therapy and repeat her CT scan abdomen pelvis. We will also recheck her ESR and CRP and lactate. Charges/Coding Visit Charges Inpatient E&M: 72160 Subs Hosp L3
--- NOTE | 2023-08-12 16:58 | CT_ITS ---
INDICATION: messentaric thrombosis EXAMINATION: CTA abdomen and pelvis - TECHNIQUE: Routine abdominal CT angiogram protocol was performed with IV contrast. MIP images provided. A radiation dose optimization technique was used for this scan. IV Contrast dosage and agent: 100 cc [id number] Radiation dose DLP 504 mGy / cm. COMPARISON: 08/05/2023 CT abdomen and pelvis FINDINGS: Lung bases: Normal. Liver: Low-density lesion within the right hepatic lobe with similar prior consistent with hepatic cyst measuring 1.2 cm. Gallbladder: Normal. Spleen: Normal. Adrenal gland: Normal. Kidneys: Normal. No hydronephrosis or stone formation. Right renal cortical simple appearing cyst is present measuring 3.2 cm. Pancreas:Normal. Bowel gas pattern: Mild wall thickening of the ascending colon with no evidence of underlying pneumatosis to suggest ischemia. Appendix: Normal. Free air: None. Free fluid: Mild free fluid within the right quadrant and pelvis is noted. Subcutaneous edema within the abdomen and pelvis mild. Pelvis: Pelvic organs: Prominent myometrial enhancing fibroids are present measuring 2.3 cm and 2.3 cm. IUD is in place. Bone survey: No aggressive bony lesions. No acute fractures. Adenopathy: No significant pathologic adenopathy detected. Other: Mild pelvic fluid layering is present. Vascular: Celiac artery, SMA and SHIRLEY are patent throughout their course. The visualized renal arteries are patent with no evidence of significant steno-occlusive disease. No significant atherosclerotic calcifications are present within the abdominal aorta. CT/CTA Abd/Pelvis W/WO Contrast IMPRESSION: Mild wall thickening of the ascending colon with underlying colitis not excluded. No focal fluid collection or abscess. No evidence of vascular arterial compromise. Mild fluid layering within the pelvis and right quadrant is present. Electronically Signed: Raj Rajan DO at 17:58 EST ,
[2023-08-12] MEDS: MethylPREDNISolone 125 MG/2 ML Vial 80 MG IV ×2 (17:45→22:17)
[2023-08-12 17:48] VITALS: BP 117/76; PULSE 84; RESP 16; TEMP 37.1; O2SAT 100
[2023-08-12 22:29] VITALS: BP 105/74; PULSE 80; RESP 16; TEMP 37.1; O2SAT 96
[2023-08-13 01:49] VITALS: BMI 21.7
[2023-08-13 04:00] VITALS: BP 112/78; PULSE 70; RESP 16; TEMP 36.8; O2SAT 96
[2023-08-13] MEDS: MethylPREDNISolone 125 MG/2 ML Vial 80 MG IV ×4 (04:14→21:55)
[2023-08-13] MEDS: Piperacil/Tazobactam 3.375 GM in 0.9% Normal Saline (50mL MB+) 50 ML IV ×3 (04:15→21:56)
[2023-08-13 06:52] LABS: Absolute Lymphocyte Count 1.08 X10^3/uL (0.83-4.51); Absolute Neutrophil Count 9.8 X10^3/uL (2.0-7.7); Basophil# 0.02 X10^3/uL; Basophil% 0.2 % (0-1); Hematocrit 31.5 % (37-47); Hemoglobin 10.1 g/dL (12.0-15.0); Lymphocyte # 1.08 X10^3/ul (0.83-4.51); Lymphocyte % 9.7 % (19-41); Mean Corp Hgb Conc 32.1 g/dL (32-36); Mean Corpuscular Hgb 28.3 pg (27.0-32.0); Mean Corpuscular Volume 88.2 fL (81-99); Mean Platelet Vol. 8.5 fl (6.2-12.0); Monocyte# 0.11 X10^3/uL; NRBC Flagged by Analyzer 0 % (0-5); Neutrophil # 9.79 X10^3/uL (2.7-7.7); Neutrophil % 87.8 % (47-70); Platelet Count 313 K/mm3 (150-450); RBC Distribution Width CV 13.2 % (11.6-14.6); RBC Distribution Width SD 42.5 fl (35.1-43.9); Red Blood Count 3.57 M/mm3 (4.2-5.4); White Blood Count 11.1 K/mm3 (4.4-11.0)
[2023-08-13 07:13] LABS: ALB/GLOB Ratio 0.6 RATIO (0.9-2.4); AST(SGOT) 9 U/L (15-37); Alanine Aminotransfer ALT/SGPT 18 U/L (13-56); Albumin, Serum 2.5 g/dL (3.2-5.0); Alkaline Phosphatase 55 U/L (45-117); Anion Gap 7 (5-15); BUN 15 mg/dL (7-18); BUN/Creat Ratio 23.5 RATIO (10-20); Calcium,Total 8.6 mg/dL (8.5-10.1); Chloride 110 mmol/L (98-107); Creatinine, Serum 0.64 mg/dL (0.55-1.02); EST Glomerular Filtration Rate 103 mL/min (>60); Est Glom Filt Rate - Afr Amer 125 mL/min (>60); Estimated Creatinine Clearance 90.42 ml/min; Globulin 3.9 g/dL (2.2-4.2); Glucose 182 mg/dL (74-106); Potassium 3.4 mmol/L (3.5-5.1); Protein, Total 6.4 g/dL (6.4-8.2); Sodium Level 140 mmol/L (136-145)
[2023-08-13 09:30] VITALS: BP 99/63; PULSE 87; RESP 16; TEMP 37; O2SAT 97
[2023-08-13] MEDS: 0.9% Saline Lock 10 ML Syringe IV ×3 (11:36→17:23)
[2023-08-13] MEDS: Acetaminophen 325 MG Tablet 650 MG PO (11:36)
--- NOTE | 2023-08-13 13:13 | PN.HOSP_ITS ---
Subjective Subjective Doing well, no issues overnight Objective Data Objective Data Vital Signs: Vital Signs Temp Pulse Resp BP Pulse Ox O2 Del Method 98.6 F 87 16 99/63 97 Room Air 08/13/23 09:30 08/13/23 09:30 08/13/23 09:30 08/13/23 09:30 08/13/23 09:30 08/13/23 09:30 Oxygen Delivery Method Room Air Weight: 130 lb 11.746 oz Body Mass Index (BMI) 21.7 Intake & Output: Intake and Output for Last 24 Hours 08/12/23 08/13/23 08/14/23 03:59 03:59 03:59 Intake Total 1018.13 / 1018.13 1510 / 1510 1050 / 1050 Balance 1018.13 / 1018.13 1510 / 1510 1050 / 1050 Lab / Micro Data 08/13/23 06:22 08/13/23 06:22 Labs: Laboratory Results - last 24 hr 08/12/23 03:50: Iron 27 L, TIBC 214 L, Iron Saturation 12.6 L, Ferritin 68 08/13/23 06:22: WBC 11.1 H, RBC 3.57 L, Hgb 10.1 L, Hct 31.5 L, MCV 88.2, MCH 28.3, MCHC 32.1, RDW Std Deviation 42.5, RDW Coeff of Audrey 13.2, Plt Count 313, MPV 8.5, Immature Gran % (Auto) 1.300 H, Neut % (Auto) 87.8 H, Lymph % (Auto) 9.7 L, [place] % (Auto) 1.0, Eos % (Auto) 0.0, Baso % (Auto) 0.2, Absolute Neuts (auto) 9.8 H, Absolute Lymphs (auto) 1.08, Nucleated RBC % 0, Sodium 140, Potassium 3.4 L, Chloride 110 H, Carbon Dioxide 23.0, Anion Gap 7, BUN 15, Creatinine 0.64, Estim Creat Clear Calc 90.42, Est GFR (MDRD) Af Amer 125, Est GFR (MDRD) Non-Af 103, BUN/Creatinine Ratio 23.5 H, Glucose 182 H, Calcium 8.6, Total Bilirubin 0.20, AST 9 L, ALT 18, Alkaline Phosphatase 55, Total Protein 6.4, Albumin 2.5 L, Globulin 3.9, Albumin/Globulin Ratio 0.6 L Micro: Microbiology 08/05/23 14:17 Fluid - Ascites Gram Stain - Final 08/05/23 14:17 Fluid - Ascites Body Fluid Culture - Final Culture exhibits no growth. 08/05/23 14:17 Fluid - Ascites Anaerobic Culture - Final No growth in 5 days. 08/05/23 11:35 Blood Culture (Wb) - Anticubital Left Blood Culture - Final No growth in 5 days. 08/05/23 11:30 Blood Culture (Wb) - Right Wrist Blood Culture - Final No growth in 5 days. 08/08/23 12:21 Stool Enteric Bacteriology - Final 08/08/23 12:21 Stool C. difficile GDH Antigen & Toxins - Final 08/08/23 12:21 Stool C. difficile DNA Amplification - Final Radiography Diagnostic Testing: Radiology Impression Abdomen Ultrasound 08/12/23 06:00 IMPRESSION: Not enough fluid for safe paracentesis. Electronically Signed: Ted Membreno MD at 13:49 EST , Abdomen/Pelvis CTA 08/12/23 16:58 IMPRESSION: Mild wall thickening of the ascending colon with underlying colitis not excluded. No focal fluid collection or abscess. No evidence of vascular arterial compromise. Mild fluid layering within the pelvis and right quadrant is present. Electronically Signed: Raj Rajan DO at 17:58 EST , Physical Exam Narrative General: Alert, Oriented x3, Cooperative, No apparent distress HEENT: Atraumatic, PERRLA, EOMI, Normocephalic Oral: Moist Mucosa Neck: Supple, No JVD Lungs: Clear to auscultation, Normal air movement, No rhonchi, No wheeze, No rales Cardiovascular: Regular rate, Regular Rhythm, Normal S1, Normal S2, No murmurs Abdomen: Soft, Non Tender, distended, no Hepato-splenomegaly Extremities: No edema, Capillary Refill Less than 3 Seconds Skin: No rashes, No breakdown Musculoskeletal: No Tenderness to Palpation of Joints or Extremities Neurological: Cranial nerves II-XII grossly intact, Motor Exam 5/5 strength throughout, Sensory exam intact to light touch and pain Psych/Mental Status: Normal Affect, Appropriate Assessment & Plan Assessment/Plan (1) Ascites: QUALIFIERS: Ascites type: other type Qualified Code(s): R18.8 - Other ascites PLAN: Plan 1. New onset mild ascites with enlarged right colon with gastritis and inflammatory versus infectious colitis ? Previous colonic biopsy demonstrated microcolitis ? Continue with budesonide and antibiotics ? Appreciate gastroenterology's assistance ? There was enough fluid today for paracentesis ? CA125 is elevated however not diagnostic for ovarian cancer as she has no obvious ovarian mass on either CT scan or ultrasound I do wonder if the CA125 is a response to peritoneal irritation from an enlarged colon and usually a CA125 should be several orders of magnitude greater than the upper limit of normal for cancer diagnosis ? Her TSH level is a little bit elevated to 3.9 and her free T3 is slightly low at 2.1 I do not believe that this is the cause of her ascites either ? Colonoscopy demonstrated inflammation and EGD demonstrated gastritis ? Ova and parasites on her previous admission were negative, the enteric pathogen panel has also been negative, her C. difficile was negative for antigen and toxin but positive for DNA ? Continue with high-dose steroids, CTA of the abdomen was negative for any clots in the arterial or venous system of her colon 2. Mild anemia ? Iron as well as TIBC and saturation is low, ferritin is normal ? Can provide a dose of IV iron DVT: Lovenox
[2023-08-13] MEDS: Sodium Ferric Gluconat/Sucrose 250 MG in 0.9% Normal Saline (250mL Bag) 250 ML 135 MG IV (13:43)
[2023-08-13 15:40] VITALS: BP 92/63; PULSE 66; RESP 16; TEMP 37.2; O2SAT 98
[2023-08-13 21:40] VITALS: BP 106/75; PULSE 72; RESP 16; TEMP 36.4; O2SAT 97
[2023-08-14 03:00] VITALS: BP 106/72; PULSE 73; RESP 16; TEMP 37.1; O2SAT 95
[2023-08-14 03:54] VITALS: BMI 22.1
[2023-08-14] MEDS: MethylPREDNISolone 125 MG/2 ML Vial 80 MG IV ×4 (04:12→22:07)
[2023-08-14] MEDS: Piperacil/Tazobactam 3.375 GM in 0.9% Normal Saline (50mL MB+) 50 ML IV ×3 (04:12→22:07)
[2023-08-14 05:30] LABS: Absolute Lymphocyte Count 1.58 X10^3/uL (0.83-4.51); Absolute Neutrophil Count 14.5 X10^3/uL (2.0-7.7); Basophil# 0.03 X10^3/uL; Basophil% 0.2 % (0-1); Hematocrit 32.1 % (37-47); Hemoglobin 10.2 g/dL (12.0-15.0); Lymphocyte # 1.58 X10^3/ul (0.83-4.51); Lymphocyte % 9.3 % (19-41); Mean Corp Hgb Conc 31.8 g/dL (32-36); Mean Corpuscular Hgb 28.4 pg (27.0-32.0); Mean Corpuscular Volume 89.4 fL (81-99); Mean Platelet Vol. 8.7 fl (6.2-12.0); Monocyte# 0.59 X10^3/uL; Monocyte% 3.5 % (0-10); NRBC Flagged by Analyzer 0 % (0-5); Neutrophil # 14.46 X10^3/uL (2.7-7.7); Neutrophil % 85.3 % (47-70); Platelet Count 350 K/mm3 (150-450); RBC Distribution Width CV 13.8 % (11.6-14.6); RBC Distribution Width SD 44.7 fl (35.1-43.9); Red Blood Count 3.59 M/mm3 (4.2-5.4); White Blood Count 16.9 K/mm3 (4.4-11.0)
[2023-08-14 06:09] LABS: Anion Gap 10 (5-15); BUN 15 mg/dL (7-18); BUN/Creat Ratio 26.9 RATIO (10-20); Calcium,Total 7.7 mg/dL (8.5-10.1); Chloride 113 mmol/L (98-107); Creatinine, Serum 0.56 mg/dL (0.55-1.02); EST Glomerular Filtration Rate 121 mL/min (>60); Est Glom Filt Rate - Afr Amer 146 mL/min (>60); Estimated Creatinine Clearance 103.34 ml/min; Glucose 130 mg/dL (74-106); Sodium Level 144 mmol/L (136-145)
[2023-08-14 09:00] VITALS: BP 110/56; PULSE 87; RESP 12; TEMP 36.8; O2SAT 100
--- NOTE | 2023-08-14 13:17 | PN.HOSP_ITS ---
Subjective Subjective Doing well, no issues overnight. Abdominal distention has improved Objective Data Objective Data Vital Signs: Vital Signs Temp Pulse Resp BP Pulse Ox O2 Del Method 98.3 F 87 12 110/56 L 100 Room Air 08/14/23 09:00 08/14/23 09:00 08/14/23 09:00 08/14/23 09:00 08/14/23 09:00 08/14/23 09:00 Oxygen Delivery Method Room Air Weight: 132 lb 11.492 oz Body Mass Index (BMI) 22.1 Intake & Output: Intake and Output for Last 24 Hours 08/13/23 08/14/23 08/15/23 03:59 03:59 03:59 Intake Total 1510 / 1510 2340 / 2340 1233 / 1233 Output Total 400 / 400 Balance 1510 / 1510 2340 / 2340 833 / 833 Lab / Micro Data 08/14/23 04:40 08/14/23 04:40 Labs: Laboratory Results - last 24 hr 08/14/23 04:40: WBC 16.9 H, RBC 3.59 L, Hgb 10.2 L, Hct 32.1 L, MCV 89.4, MCH 28 .4, MCHC 31.8 L, RDW Std Deviation 44.7 H, RDW Coeff of Audrey 13.8, Plt Count 350, MPV 8.7, Immature Gran % (Auto) 1.700 H, Neut % (Auto) 85.3 H, Lymph % (Auto) 9.3 L, [place] % (Auto) 3.5, Eos % (Auto) 0.0, Baso % (Auto) 0.2, Absolute Neuts (auto) 14.5 H, Absolute Lymphs (auto) 1.58, Nucleated RBC % 0, Sodium 144, Potassium 4.0, Chloride 113 H, Carbon Dioxide 21.0, Anion Gap 10, BUN 15, Creatinine 0.56, Estim Creat Clear Calc 103.34, Est GFR (MDRD) Af Amer 146, Est GFR (MDRD) Non-Af 121, BUN/Creatinine Ratio 26.9 H, Glucose 130 H, Calcium 7.7 L Micro: Microbiology 08/05/23 14:17 Fluid - Ascites Gram Stain - Final 08/05/23 14:17 Fluid - Ascites Body Fluid Culture - Final Culture exhibits no growth. 08/05/23 14:17 Fluid - Ascites Anaerobic Culture - Final No growth in 5 days. 08/05/23 11:35 Blood Culture (Wb) - Anticubital Left Blood Culture - Final No growth in 5 days. 08/05/23 11:30 Blood Culture (Wb) - Right Wrist Blood Culture - Final No growth in 5 days. 08/08/23 12:21 Stool Enteric Bacteriology - Final 08/08/23 12:21 Stool C. difficile GDH Antigen & Toxins - Final 08/08/23 12:21 Stool C. difficile DNA Amplification - Final Physical Exam Narrative General: Alert, Oriented x3, Cooperative, No apparent distress HEENT: Atraumatic, PERRLA, EOMI, Normocephalic Oral: Moist Mucosa Neck: Supple, No JVD Lungs: Clear to auscultation, Normal air movement, No rhonchi, No wheeze, No rales Cardiovascular: Regular rate, Regular Rhythm, Normal S1, Normal S2, No murmurs Abdomen: Soft, Non Tender, distended?improved, no Hepato-splenomegaly Extremities: No edema, Capillary Refill Less than 3 Seconds Skin: No rashes, No breakdown Musculoskeletal: No Tenderness to Palpation of Joints or Extremities Neurological: Cranial nerves II-XII grossly intact, Motor Exam 5/5 strength t hroughout, Sensory exam intact to light touch and pain Psych/Mental Status: Normal Affect, Appropriate Assessment & Plan Assessment/Plan (1) Ascites: QUALIFIERS: Ascites type: other type Qualified Code(s): R18.8 - Other ascites PLAN: Plan 1. New onset mild ascites with enlarged right colon with gastritis and inflammatory versus infectious colitis ? Previous colonic biopsy demonstrated microcolitis ? Continue with budesonide and antibiotics ? Appreciate gastroenterology's assistance ? There was enough fluid today for paracentesis ? CA125 is elevated however not diagnostic for ovarian cancer as she has no obvious ovarian mass on either CT scan or ultrasound I do wonder if the CA125 is a response to peritoneal irritation from an enlarged colon and usually a CA125 should be several orders of magnitude greater than the upper limit of normal for cancer diagnosis ? Her TSH level is a little bit elevated to 3.9 and her free T3 is slightly low at 2.1 I do not believe that this is the cause of her ascites either ? Colonoscopy demonstrated inflammation and EGD demonstrated gastritis ? Ova and parasites on her previous admission were negative, the enteric pathogen panel has also been negative, her C. difficile was negative for antigen and toxin but positive for DNA ? Continue with high-dose steroids, CTA of the abdomen was negative for any clots in the arterial or venous system of her colon 2. Mild anemia ? Iron as well as TIBC and saturation is low, ferritin is normal ? Can provide a dose of IV iron DVT: Lovenox Charges/Coding Visit Charges Inpatient E&M: 77787 Subs Hosp L2
--- NOTE | 2023-08-14 17:15 | PN.GI_ITS ---
Subjective Subjective Her abdominal pain, bloating and abdominal distention is a lot better. She has been on steroid therapy. Her weight has been improving. Objective Data Objective Data Vital Signs: Vital Signs Temp Pulse Resp BP Pulse Ox O2 Del Method 98.3 F 87 12 110/56 L 100 Room Air 08/14/23 09:00 08/14/23 09:00 08/14/23 09:00 08/14/23 09:00 08/14/23 09:00 08/14/23 09:00 Oxygen Delivery Method Room Air Weight: 132 lb 11.492 oz Body Mass Index (BMI) 22.1 Intake & Output: Intake and Output for Last 24 Hours 08/12/23 08/13/23 08/14/23 23:59 23:59 23:59 Intake Total 1498.13 / 1498.13 1840 / 2340 2466 / 2466 Output Total 800 / 800 Balance 1498.13 / 1498.13 1840 / 2340 1666 / 1666 Lab / Micro Data 08/14/23 04:40 08/14/23 04:40 Labs: Laboratory Results - last 24 hr 08/14/23 04:40: WBC 16.9 H, RBC 3.59 L, Hgb 10.2 L, Hct 32.1 L, MCV 89.4, MCH 28.4, MCHC 31.8 L, RDW Std Deviation 44.7 H, RDW Coeff of Audrey 13.8, Plt Count 350, MPV 8.7, Immature Gran % (Auto) 1.700 H, Neut % (Auto) 85.3 H, Lymph % (Auto) 9.3 L, [place] % (Auto) 3.5, Eos % (Auto) 0.0, Baso % (Auto) 0.2, Absolute Neuts (auto) 14.5 H, Absolute Lymphs (auto) 1.58, Nucleated RBC % 0, Sodium 144, Potassium 4.0, Chloride 113 H, Carbon Dioxide 21.0, Anion Gap 10, BUN 15, Creatinine 0.56, Estim Creat Clear Calc 103.34, Est GFR (MDRD) Af Amer 146, Est GFR (MDRD) Non-Af 121, BUN/Creatinine Ratio 26.9 H, Glucose 130 H, Calcium 7.7 L Micro: Microbiology 08/05/23 14:17 Fluid - Ascites Gram Stain - Final 08/05/23 14:17 Fluid - Ascites Body Fluid Culture - Final Culture exhibits no growth. 08/05/23 14:17 Fluid - Ascites Anaerobic Culture - Final No growth in 5 days. 08/05/23 11:35 Blood Culture (Wb) - Anticubital Left Blood Culture - Final No growth in 5 days. 08/05/23 11:30 Blood Culture (Wb) - Right Wrist Blood Culture - Final No growth in 5 days. 08/08/23 12:21 Stool Enteric Bacteriology - Final 08/08/23 12:21 Stool C. difficile GDH Antigen & Toxins - Final 08/08/23 12:21 Stool C. difficile DNA Amplification - Final Physical Exam Narrative General: Alert, Oriented x3, Cooperative, No apparent distress HEENT: Atraumatic, PERRLA, EOMI, Normocephalic Oral: Moist Mucosa Neck: Supple, No JVD Lungs: Clear to auscultation, Normal air movement, No rhonchi, No wheeze, No rales Cardiovascular: Regular rate, Regular Rhythm, Normal S1, Normal S2, No murmurs Abdomen: Soft, Non Tender, distended?improved, no Hepato-splenomegaly Extremities: No edema, Capillary Refill Less than 3 Seconds Skin: No rashes, No breakdown Musculoskeletal: No Tenderness to Palpation of Joints or Extremities Neurological: Cranial nerves II-XII grossly intact, Motor Exam 5/5 strength throughout, Sensory exam intact to light touch and pain Psych/Mental Status: Normal Affect, Appropriate Assessment & Plan Assessment/Plan (1) Colitis: PLAN: Plan This is 52-year-old female is being admitted for 2 weeks of severe abdominal pain and bloating with new onset ascites and history of microscopic colitis Acute pancolitis: Exact etiology unclear. Await biopsies. Patient is on antibiotics at this time. Stool for enteric bacteriology panel and C. difficile are negative. She is PCR positive but toxin negative for C. difficile CT abdomen usually reviewed and shows small right paracolic gutter fluid which is unlikely secondary to microperforation. CT does not report microperforation but diffuse thickening of colon from transverse colon to rectum. Supportive treatment for nausea vomiting and oxycodone, Bentyl and IV morphine abdominal pain. Lactic acid normal. Enteric bacteriology panel negative for Campylobacter, Salmonella, Shigella with Shiga toxin, Yersinia, vibrio, rotavirus and norovirus. WBC lactoferrin positive suggestive of inflammatory/infectious colitis. C. difficile PCR ne gative. Her autoimmune labs including tissue transglutaminase for celiac disease and REFUGIO for vasculitis are negative. Tap on the differential diagnosis is still Giardia infection with underlying ischemic colitis. elevated CA125 in the setting of new onset ascites concerning. She will likely need percutaneous biopsy of the peritoneal. Repeat diagnostic and therapeutic paracentesis. Continue antibiotics and check stool for alpha-1 antitrypsin which can help identify protein-losing today which also can cause ascites in the setting of microscopic colitis. 08/10- She does not have any particular complaints at this time. She still does complain of diarrhea.. I reviewed the biopsies from the colonoscopy and it does show a lot of findings of an acute colitis. Her Cdiff PCR is positive with fecal leukocytes positive, indicating some type of infectious colitis or Inflammatory colitis. The differential diagnosis for new onset, ascites with an inflammatory or infectious colitis in the [place], would be histoplasmosis and a patient with immunosuppression being on immunosuppressive therapy. She does not have cirrhosis, and a saag gradient was not calculated when she did her initial paracentesis. I agree with her getting a peritoneal biopsy. I will send the stool for histoplasmosis, CMV. . It is less likely that she has ulcerative colitis on budesonide, but it is on a different diagnosis. This has been going on at least for the last four months and she's had a recent colonoscopy by Dr. Berman and a colonoscopy by myself two days ago. I will also send stool for Alpha 1 antitrypsin in for autoimmune enteritis. 08/12-she still complains of diarrhea. The biopsies from her colon show focal acute colitis with mild crypt abscess. The differential diagnosis would be also ulcerative colitis, Crohn's colitis, infectious colitis. So far all stool studies have been negative for infection. I will start her on empiric steroid therapy and repeat her CT scan abdomen pelvis. We will also recheck her ESR and CRP and lactate. 08/14-bowel movements are starting to thicken up. She is on her second day of IV steroids. Presumptive diagnosis is right sided colitis secondary to possible inflammatory bowel disease. Antibodies and biochemical testing for Crohn's or ulcerative colitis are still pending. Her white blood cell count is mildly elevated likely secondary to leukemoid reaction from steroids. Clinically she is improving. Her CT scan abdomen pelvis did not show any signs of ischemia causing bowel inflammation. Workup still in progress. Charges/Coding Visit Charges Inpatient E&M: 84670 Subs Hosp L3
[2023-08-14 21:00] VITALS: BP 105/74; PULSE 74; RESP 16; TEMP 36.4; O2SAT 97
[2023-08-15 03:00] VITALS: BP 108/76; PULSE 67; RESP 16; TEMP 36.6; O2SAT 97
[2023-08-15] MEDS: Piperacil/Tazobactam 3.375 GM in 0.9% Normal Saline (50mL MB+) 50 ML IV ×2 (04:09→14:14)
[2023-08-15] MEDS: MethylPREDNISolone 125 MG/2 ML Vial 80 MG IV ×2 (04:09→11:48)
[2023-08-15 06:00] VITALS: BMI 22.4
--- NOTE | 2023-08-15 07:00 | EX.PCM.PN.GI ---
Subjective Subjective Patient feels a lot better. She is a lot less bloated and her stools are starting to form. Objective Data Objective Data Vital Signs: Vital Signs Temp Pulse Resp BP Pulse Ox O2 Del Method 98.6 F 65 14 106/67 99 Room Air 08/15/23 08:24 08/15/23 08:24 08/15/23 08:24 08/15/23 08:24 08/15/23 08:24 08/15/23 08:24 Oxygen Delivery Method Room Air Weight: 134 lb 7.712 oz Body Mass Index (BMI) 22.4 Intake & Output: Intake and Output for Last 24 Hours 08/13/23 08/14/23 08/15/23 23:59 23:59 23:59 Intake Total 1840 / 2340 2516 / 3016 1433 / 1433 Output Total 800 / 800 400 / 400 Balance 1840 / 2340 1716 / 2216 1033 / 1033 Lab / Micro Data 08/14/23 04:40 08/14/23 04:40 Micro: Microbiology 08/05/23 14:17 Fluid - Ascites Gram Stain - Final 08/05/23 14:17 Fluid - Ascites Body Fluid Culture - Final Culture exhibits no growth. 08/05/23 14:17 Fluid - Ascites Anaerobic Culture - Final No growth in 5 days. 08/05/23 11:35 Blood Culture (Wb) - Anticubital Left Blood Culture - Final No growth in 5 days. 08/05/23 11:30 Blood Culture (Wb) - Right Wrist Blood Culture - Final No growth in 5 days. 08/08/23 12:21 Stool Enteric Bacteriology - Final 08/08/23 12:21 Stool C. difficile GDH Antigen & Toxins - Final 08/08/23 12:21 Stool C. difficile DNA Amplification - Final Radiography Diagnostic Testing: Radiology Impression Abdomen/Pelvis CT 08/15/23 10:43 IMPRESSION: Improvement in the colitis. Residual small amount of ascites. IUD is seen within a fibroid uterus. Stable bilateral renal cysts. Electronically Signed: Ted Membreno MD at 13:47 EST , Physical Exam Narrative General: Alert, Oriented x3, Cooperative, No apparent distress HEENT: Atraumatic, PERRLA, EOMI, Normocephalic Oral: Moist Mucosa Neck: Supple, No JVD Lungs: Clear to auscultation, Normal air movement, No rhonchi, No wheeze, No rales Cardiovascular: Regular rate, Regular Rhythm, Normal S1, Normal S2, No murmurs Abdomen: Soft, Non Tender, distended?improved, no Hepato-splenomegaly Extremities: No edema, Capillary Refill Less than 3 Seconds Skin: No rashes, No breakdown Musculoskeletal: No Tenderness to Palpation of Joints or Extremities Neurological: Cranial nerves II-XII grossly intact, Motor Exam 5/5 strength throughout, Sensory exam intact to light touch and pain Psych/Mental Status: Normal Affect, Appropriate Assessment & Plan Assessment/Plan (1) Colitis: PLAN: Plan This is 52-year-old female is being admitted for 2 weeks of severe abdominal pain and bloating with new onset ascites and history of microscopic colitis Acute pancolitis: Exact etiology unclear. Await biopsies. Patient is on antibiotics at this time. Stool for enteric bacteriology panel and C. difficile are negative. She is PCR positive but toxin negative for C. difficile CT abdomen usually reviewed and shows small right paracolic gutter fluid which is unlikely secondary to microperforation. CT does not report microperforation but diffuse thickening of colon from transverse colon to rectum. Supportive treatment for nausea vomiting and oxycodone, Bentyl and IV morphine abdominal pain. Lactic acid normal. Enteric bacteriology panel negative for Campylobacter, Salmonella, Shigella with Shiga toxin, Yersinia, vibrio, rotavirus and norovirus. WBC lactoferrin positive suggestive of inflammatory/infectious colitis. C. difficile PCR negative. Her autoimmune labs including tissue transglutaminase for celiac disease and REFUGIO for vasculitis are negative. Tap on the differential diagnosis is still Giardia infection with underlying ischemic colitis. elevated CA125 in the setting of new onset ascites concerning. She will likely need percutaneous biopsy of the peritoneal. Repeat diagnostic and therapeutic paracentesis. Continue antibiotics and check stool for alpha-1 antitrypsin which can help identify protein-losing today which also can cause ascites in the setting of microscopic colitis. 08/10- She does not have any particular complaints at this time. She still does complain of diarrhea.. I reviewed the biopsies from the colonoscopy and it does show a lot of findings of an acute colitis. Her Cdiff PCR is positive with fecal leukocytes positive, indicating some type of infectious colitis or Inflammatory colitis. The differential diagnosis for new onset, ascites with an inflammatory or infectious colitis in the [place], would be histoplasmosis and a patient with immunosuppression being on immunosuppressive therapy. She does not have cirrhosis, and a saag gradient was not calculated when she did her initial paracentesis. I agree with her getting a peritoneal biopsy. I will send the stool for histoplasmosis, CMV. . It is less likely that she has ulcerative colitis on budesonide, but it is on a different diagnosis. This has been going on at least for the last four months and she's had a recent colonoscopy by Dr. Berman and a colonoscopy by myself two days ago. I will also send stool for Alpha 1 antitrypsin in for autoimmune enteritis. 08/12-she still complains of diarrhea. The biopsies from her colon show focal acute colitis with mild crypt abscess. The differential diagnosis would be also ulcerative colitis, Crohn's colitis, infectious colitis. So far all stool studies have been negative for infection. I will start her on empiric steroid therapy and repeat her CT scan abdomen pelvis. We will also recheck her ESR and CRP and lactate. 08/14-bowel movements are starting to thicken up. She is on her second day of IV steroids. Presumptive diagnosis is right sided colitis secondary to possible inflammatory bowel disease. Antibodies and biochemical testing for Crohn's or ulcerative colitis are still pending. Her white blood cell count is mildly elevated likely secondary to leukemoid reaction from steroids. Clinically she is improving. Her CT scan abdomen pelvis did not show any signs of ischemia causing bowel inflammation. Workup still in progress. 08/15-bowel movements almost at the baseline. Abdominal pain and swelling a lot better with IV steroids. Patient would like to go home. She will continue to be on antibiotics and steroids. She will need repeat blood work along with repeat ESR, CRP, CBC, CMP, LDH, lactate in approximately 3 days. Charges/Coding Visit Charges Inpatient E&M: 60467 Subs Hosp L3
[2023-08-15 08:24] VITALS: BP 106/67; PULSE 65; RESP 14; TEMP 37; O2SAT 99
--- NOTE | 2023-08-15 10:43 | CT_ITS ---
STUDY: CT ABDOMEN AND PELVIS WITH CONTRAST REASON FOR EXAM: Female, 53 years old. For colitis response to steroid therapy -- IV and PO contrast RADIATION DOSAGE (If Supplied By Facility): CTDIvol = ( 12.57 ) mGy, DLP = ( 447.80 ) mGycm TECHNIQUE: Transaxial images were obtained from the dome of the diaphragm to the symphysis pubis with oral contrast. Oral and amp;amp; IV Gastrografin and amp;amp; 100mL Isovue-300 was administered. Sagittal and coronal images were reconstructed. Individualized dose optimization techniques were used for this CT. COMPARISON: Comparison is made with prior study dated August 05, 2023 and August 12, 2023. FINDINGS: The visualized lung bases are unremarkable. The visualized portions of the heart are within normal limits. Stable cysts in the liver. Small amount of perihepatic fluid. Normal gallbladder and extrahepatic biliary system. Normal spleen. Normal pancreas. Normal bilateral adrenal glands. Stable 2.8 cm x 3 cm cyst in the upper pole of the right kidney. Small amount of fluid is seen in the hepatorenal space. Small left renal cyst. Normal visualized stomach. Normal small intestine. Large amount of fecal material is seen throughout the colon. There has been improvement of the colitis as compared to prior study. The appendix is visualized and appears normal. Normal abdominal aorta. Normal inferior vena cava. Normal retroperitoneum. Normal urinary bladder. Small amount of free fluid in the pelvis. IUD is seen within the fibroid. Normal abdominal wall. Normal osseous structures. CT/Abdomen/Pelvis WITH Contrast IMPRESSION: Improvement in the colitis. Residual small amount of ascites. IUD is seen within a fibroid uterus. Stable bilateral renal cysts. Electronically Signed: Ted Membreno MD at 13:47 EST ,
--- NOTE | 2023-08-15 14:18 | DCINST_ITS ---
Discharge Instructions Diet Discharge Diet: No restrictions Activity Discharge Activity: Return to Normal Activity Dressing / Incision Call your doctor if you observe: Fever of 101 or Higher, Shortness of breath, Dizziness, Fainting spells, Swelling in the ankles, Chest pain and Increased palpitations (irregular heartbeat) Follow Up Care Test Results: Test results from this visit will be discussed in further detail at your follow- up appointment, if applicable. Discharge Plan Admission Admit Date/Time: 08/05/23 13:33 Attending Provider: Edu Swan Primary Care Provider: Blake Carter NP Consulting Providers: Lazaro Hadley; Channing Soto Discharge Orders/Prescriptions Prescriptions: New prednisone 20 mg tablet 60 mg PO DAILY 30 Days Qty: 90 0RF Continued NewFlora 10 billion cell capsule 10,000 mmu cells PO DAILY bisacodyl [Alophen (bisacodyl)] 5 mg tablet,delayed release (DR/EC) 5 mg PO Q6H PRN (Reason: constipation) Discontinued budesonide 3 mg capsule,delayed,extend.release 9 mg PO DAILY Referrals / Follow Up: West Smith DO [Med Staff - Active Staff] - Within 2 Weeks Blake Carter NP, [facility] [Primary Care Provider] - Within 1 Week Disposition Disposition (needs filled in before D/C Order can be placed): Home, Self Care
--- NOTE | 2023-08-15 14:21 | DS.PCM_ITS ---
Providers Date of Admission: 08/05/23 Primary Care Physician: Blake Carter, BRICK AND TILE MAKING MACHINE OPERATOR-C Consultations 08/06/23 07:54 Consult: Gastroenterology Routine Consulting Provider: Tony Gastro[facility] Reason for Consult: ascites EMERGENT Consult: No MD Notified: Yes Date Notified: 08/06/23 Time Notified: 07:54 Method of Notification: Text Reason For Visit: COLON INFLAMMATION AND DILATION, DIFFUSE ASCITES Diagnosis Discharge Diagnosis (1) Colitis: Status: Resolved Code(s): K52.9 - Noninfective gastroenteritis and colitis, unspecified Medications at Discharge Home Medications Lactobacillus acidophilus 10 billion cell capsule (NewFlora) 10,000 mmu cells PO DAILY 08/05/23 bisacodyl 5 mg tablet,delayed release (Alophen (bisacodyl)) 5 mg PO Q6H PRN constipation 08/05/23 prednisone 20 mg tablet 60 mg (3 x 20 mg) PO DAILY 30 days #90 tabs 08/15/23 Hospital Course Operations None Procedures 2-D Echocardiogram and Colonoscopy Summary of Care Provided Minutes Spent on Discharge: 36 Hospital Course: Per HPI: MICHAEL ESPARZA, is a 53-year-old female with history of melanoma, microscopic colitis, and tobacco use presented to [facility] 08/05/2023 with increasing abdominal girth, fullness, discomfort, and nausea since with night sweats over 2 months. In ED pt w/ HR 114 and BP 113/74, wbc 16 w/ left shift. Liver panel within normal limits and creatinine 0.67, sodium slightly low at 132 but lab workup otherwise unremarkable. CT abdomen pelvis obtained which demonstrated diffuse ascites, diffuse inflammatory changes throughout the colon worse in the right hemicolon with dilation of the ascending colon. There was concern for SBP given her leukocytosis with left shift and symptoms so she was started on Zosyn and paracentesis with studies ordered in ED. ED physician also spoke with her GI doctor, Dr. Berman who was updated. Given the above hospitalist contacted for admission. Patient seen at bedside and reports that she has had some night sweats and possible weight loss over the past couple of months, she did have some symptoms of an ear infection shortly before and got 5 days of antibiotics and her symptoms improved but she began to have abdominal distention so she stopped after 5 days and she also stopped her budesonide which she was taking previous in case this was contributing. Her abdominal distention continued to worsen however in about 10 days ago her PCP gave her 7 days of prednisone and a PPI but again symptoms worsened and now it is uncomfortable for her to sit and stand and it is hard to work and her abdominal distention is making it hard to breathe prompting her presentation to the emergency department. She reports that if anything she has been somewhat constipated and has abdominal discomfort without overt pain, has had problems with swelling in the past after changing her control pills and after this is always gone away on its own. Denies alcohol use, s mokes 7 to 10 cigarettes a day and denies substance use. Has taken various supplements in the past but denies any change in supplements recently aside from a probiotic. Did start taking her budesonide again recently after being off of it but has not noticed improvement. Patient said she feels that her skin is almost hanging off of her but she is not sure about actual weight loss since she has been having increased abdominal girth. No problems with urination, feels that she has some altered sensation kind of diffusely and some dry skin, denies any nausea or vomiting. Hospital Course: 1. New onset mild ascites with large right colon in the setting of inflammatory colitis?53-year-old female presented to the hospital with increasing abdominal size as well as fullness and nausea. She said that this was fairly acute in onset, she had issues back in April and then presented again in the week of . It was unclear whether or not she has an infectious colitis or inflammatory colitis, she had seen a lean engineer as an outpatient and was told the pathology demonstrated microscopic colitis and was placed on budesonide without any significant improvement. When she presented here she was also noted to have fairly significant ascites though she only had about 400 out with a paracentesis on the secondary paracentesis there was not enough fluid to drain. Antibiotics did not have a significant benefit on her course. She ended up having a colonoscopy and EGD which demonstrated severe colitis but was sparing the rectum and gastroenterology did not feel that this was consistent with either ulcerative colitis or Crohn's disease. Autoimmune workup as well as for the pathology is still pending, and infectious workup was negative, her ova and parasites were negative in April and C. difficile and enteric pathogens were negative on this admission. She was started on high-dose steroids at 80 mg 3 times daily and repeat CT scan on the day of discharge showed improvement in the colitis therefore I discussed with her the plan for possible discharge today she expressed understanding of the risk and benefits of going home and would like to go home today on prednisone 60 mg daily. I do recommend that she follow-up with gastroenterology as an outpatient. Of note she did have an elevated CA125 however ovaries were nonvisualized on ultrasound and CT scan which is not consistent with an ovarian cancer and that her CA125 is likely a product of peritoneal irritation from her ascites. She did also have a mild anemia and was found to have some iron deficiency so she was given a dose of IV iron here in the hospital I do recommend that she liberalize her diet on discharge as well if necessary once inflammation is resolved and she has normal p.o. intake I would recheck her iron studies as an outpatient to see if she continues to be deficient if so would place her on supplementation. Physical Exam Narrative General: Alert, Oriented x3, Cooperative, No apparent distress HEENT: Atraumatic, PERRLA, EOMI, Normocephalic Oral: Moist Mucosa Neck: Supple, No JVD Lungs: Clear to auscultation, Normal air movement, No rhonchi, No wheeze, No rales Cardiovascular: Regular rate, Regular Rhythm, Normal S1, Normal S2, No murmurs Abdomen: Soft, Non Tender, distended?improved, no Hepato-splenomegaly Extremities: No edema, Capillary Refill Less than 3 Seconds Skin: No rashes, No breakdown Musculoskeletal: No Tenderness to Palpation of Joints or Extremities Neurological: Cranial nerves II-XII grossly intact, Motor Exam 5/5 strength throughout, Sensory exam intact to light touch and pain Psych/Mental Status: Normal Affect, Appropriate Weight / BMI Weight Weight: 134 lb 7.712 oz Body Mass Index (BMI) 22.4 ABG / Lab / Microbiology Data 08/14/23 04:40 08/14/23 04:40 Microbiology: Microbiology 08/05/23 14:17 Fluid - Ascites Gram Stain - Final 08/05/23 14:17 Fluid - Ascites Body Fluid Culture - Final Culture exhibits no growth. 08/05/23 14:17 Fluid - Ascites Anaerobic Culture - Final No growth in 5 days. 08/05/23 11:35 Blood Culture (Wb) - Anticubital Left Blood Culture - Final No growth in 5 days. 08/05/23 11:30 Blood Culture (Wb) - Right Wrist Blood Culture - Final No growth in 5 days. 08/08/23 12:21 Stool Enteric Bacteriology - Final 08/08/23 12:21 Stool C. difficile GDH Antigen & Toxins - Final 08/08/23 12:21 Stool C. difficile DNA Amplification - Final Radiography Diagnostic Testing: Radiology Impression Abdomen/Pelvis CT 08/15/23 10:43 IMPRESSION: Improvement in the colitis. Residual small amount of ascites. IUD is seen within a fibroid uterus. Stable bilateral renal cysts. Electronically Signed: Ted Membreno MD at 13:47 EST , D/C Instructions Discharge Diet: No restrictions Call your doctor if you observe: Fever of 101 or Higher, Shortness of breath, Dizziness, Fainting spells, Swelling in the ankles, Chest pain and Increased palpitations (irregular heartbeat) Meaningful Use Info Meaningful Use Diagnoses (Choose all that apply): None applicable Discharge Plan Admission Admit Date/Time: 08/05/23 13:33 Attending Provider: Edu Swan Primary Care Provider: Blake Carter NP Consulting Providers: Lazaro Hadley; Channing Soto Discharge Orders/Prescriptions Prescriptions: New prednisone 20 mg tablet 60 mg PO DAILY 30 Days Qty: 90 0RF Continued NewFlora 10 billion cell capsule 10,000 mmu cells PO DAILY bisacodyl [Alophen (bisacodyl)] 5 mg tablet,delayed release (DR/EC) 5 mg PO Q6H PRN (Reason: constipation) Discontinued budesonide 3 mg capsule,delayed,extend.release 9 mg PO DAILY Referrals / Follow Up: West Smith DO [Med Staff - Active Staff] - Within 2 Weeks Blake Carter NP, BRICK AND TILE MAKING MACHINE OPERATOR-C [Primary Care Provider] - Within 1 Week Disposition Disposition (needs filled in before D/C Order can be placed): Home, Self Care Charges/Coding Visit Charges Inpatient E&M: 50137 Disch Hosp >30min
--- NOTE | 2023-08-15 14:33 | CASEMGMT ---
RN CHANG NOTE: Discharge order is in. RN CM to room. Pt denies having any discharge planning needs/concerns. Pt and would like to talk w/Dr Swan prior to discharge. RN, Joon, aware. Script for Prednisone has been sent to [facility] in [place] and states can pick it up there. Chidi BSN ASHLEY CM
[2023-08-15 22:06] LABS: Calprotectin, Stool 1310 ug/g (0-120)
[2023-08-16 22:07] LABS: Histoplasma Abs Negative (Neg:<1:1); QNTFERON TB Mitogen Value > 10.00 IU/mL (.); QNTFERON TB Nil Value 0.08 IU/mL (.); QNTFERON TB1+ Ag Value 1.04 IU/mL (.); QNTFERON TB2+ Ag Value 1.04 IU/mL (.); QNTIFERON TB Positive Criteria Positive (Negative)
[2023-08-18 00:06] LABS: Pancreatic Elastase, Fecal > 500 (>200)
== END 2023-08-15 15:35 | disposition home or self-care (01) | DRG 392 ==
LOC: ED 10:14 → PCU 18:40
PROVIDERS: Internal Medicine Gastroenterology; Student in an Organized Health Care Education/Training Program; Admitting Provider Internal Medicine; Emergency Provider Emergency Medicine; PCP Nurse Practitioner Family; Visit Provider Family Medicine
PROC: 0DJD8ZZ Inspection of Lower Intestinal Tract, Via Natural or Artificial Opening Endoscopic (ICD-10-PCS; CPT 45378; principal; 2023-08-08 11:35)
DX: K52.9 Noninfective gastroenteritis and colitis, unspecified (principal); E87.1 Hypo-osmolality and hyponatremia; R18.8 Other ascites; D64.9 Anemia, unspecified; F17.210 Nicotine dependence, cigarettes, uncomplicated; K29.50 Unspecified chronic gastritis without bleeding; D25.9 Leiomyoma of uterus, unspecified; Z79.51 Long term (current) use of inhaled steroids; N28.1 Cyst of kidney, acquired
CPT/HCPCS: 36415; 49083; 74174; 74177; 76705; 76830; 80048; 80053; 81001; 81025; 82042; 82378; 82436; 82570; 82653; 82728; 82945; 83540; 83550; 83605; 83615; 83690; 83735; 83880; 83930; 83935; 83993; 84100; 84133; 84157; 84300; 84439; 84443; 84481; 84540; 85025; 85610; 85652; 86140; 86301; 86304; 86480; 86698; 87040; 87070; 87075; 87205; 87493; 87506; 88108; 88305; 88313; 88341; 88342; 89050; 93308; 94668; 99285; J7030; J7040; J7050; J7120; Q9967; A4216; J2405; J2916

== ENCOUNTER → 2023-10-04 | Outpatient (CLI) | payer OTHER, SELFPAY ==
--- OUTSIDE RECORDS SUMMARY | 2023-10-04 08:59 | XMS RPT_ITS | CCD ---
Author Name Unknown Address [address] [place] [address] Organization [facility] Care Team Providers Care Planisher Name Role Phone ANGLE PERRIN APRN, CNP Primary Care Phys ician SUE SCHMIDT Attending Unavailable ANGLE SALINAS CNP Primary Care Unavaila ble SUE SCHMIDT Attending Unavailable ANGLE SALINAS CNP Primary Care Unavaila ble Allergies Allergy Classification Reported Allergen(s) Allergy Type Date of Onset Reaction(s) Facility (2 sources) Sulfamethoxazole / Trimethoprim; Translations: [sulfamethoxazole-tr imethoprim] Drug Allergy Swelling (morphologic abnormality) [facility] [place] Medications Current Medications Medication Drug Class(es) Dates Sig (Normalized) Sig (Original) fluconazole 150 mg oral tablet (1 source) Azole Antifungal Start: 08-10-2022 End: 08-11-2022 fluconazole 150 mg oral tablet Dose : 150 mg = 1 tab(s), Oral, qDay, To take 3 days after initial dose, # 1 tab(s), 0 Refill(s), 08/11/22 6:22:00 EST, Pharmacy: [facility]/pharmacy #[id number], Vaginal jessie, 165.1, cm, 08/07/22 15:11:00 EST, Height, 63.2 Start Date: 08/10/22 Stop Date: 08/11/22 Status: Ordered ibuprofen 600 mg oral tablet (2 sources) Nonsteroidal Anti-inflammatory Drug Start: 07-11-2021 take 1 dose by mouth once daily ibuprofen Dose : 600 mg =, Oral, Daily, 0 Refill(s) Start Date: 07/11/21 Status: Ordered Misc Medication (4 sources) Start: 08-07-2022 Misc Medication H&H science for skin, 0 Refill(s), 61.4 Start Date: 08/07/22 Status: Ordered Completed/Discontinued Medications Medication Drug Class(es) Dates Sig (Normalized) Sig (Original) Collagen (2 sources) Start: 08-07-2022 Collagen capsu le Collagen capsule, daily, 0 Refill(s), 61.4 Start Date: 08/07/22 Status: Ordered Problems Problem Classification Problem Date Documented Date Episodic/Chronic Genitourinary symptoms and ill-defined conditions (3 sources) Genitourinary symptoms; Translations: [Unspecified symptoms and signs involving the genitourinary system] Onset: 08-07-2022 Episodic Results Test Name Value Interpretation Reference Range Facil ity Encounters Encounter Date Encounter Type Care Provider Facility Start: 08-10-2022 End: 08-11-2022 [facility] Start: 08-10-2022 End: 08-10-2022 Patient encounter procedure SUE BRAYAN CHUTE FEEDER-PROJECT CREW WORKER [facility] Start: 08-07-2022 End: 08-12-2022 ambulatory [facility] Facility:B Start: 08-07-2022 End: 08-11-2022 Outreach Lab SUE SCHMITD CHUTE FEEDER-PROJECT CREW WORKER [facility] Payers Date Payer Category Payer Private Health Insurance [id number] 1970 Unknown [id number] [id number] [id number] 1970 Unknown [id number] Social History Date Type Detail Facility Start: 07-11-2021 Tobacco smoking status Light t obacco smoker (finding) [facility] Sex Assigned At Sex [facility] Evaluation + Plan note 08-10-2022 Note Date & Type Note Facility 08-10-2022 Evaluation + Plan note Diagnostic Tests PendingN. gonorrhoeae PCR 08/10/22Chlamydia trachomatis PCR 08/10/22 [facility] Clinical Note 08-10-2022 Note Date & Type Note Facility 08-10-2022 Note . MICRO - Microbiology PROCEDURE: Urine Culture [*1] SOURCE: Urine, Clean Catch BODY SITE: COLLECTED DATE/TIME: 08/07/2022 15:31 EST RECEIVED DATE/TIME: 08/08/2022 19:58 EST START DATE/TIME: 08/08/2022 19:58 EST FREE TEXT SOURCE: FINAL REPORTS Final Report [] Verified Date/Time/Personnel: 08/10/2022 07:57 EST <10,000 cfu/ml. No Significant growth. Sensitivity not indicated. PRELIMINARY REPORTS Preliminary Report [] Verified Date/Time/Personnel: 08/09/2022 09:57 EST No growth to date Performing Locations *1: This test was performed at: [address], [address] [place] [address] ([place]) Clinical Note 08-09-2022 Note Date & Type Note Facility 08-09-2022 Note . MICRO - Microbiology PROCEDURE: Affirm Pathogens DNA Direct Probe [*1] SOURCE: Vaginal Fluid BODY SITE: Vaginal Wall COLLECTED DATE/TIME: 08/07/2022 15:31 EST RECEIVED DATE/TIME: 08/08/2022 20:30 EST START DATE/TIME: 08/08/2022 20:31 EST FREE TEXT SOURCE: FINAL REPORTS Final Report [] Verified Date/Time/Personnel: 08/09/2022 09:19 EST Gardnerella vaginalis DNA Probe Negative Trichomonas vaginalis DNA Probe Negative Jessie species DNA Probe Negative Performing Locations *1: This test was performed at: [address], [address] [place] [address] ([place]) Hospital course Narrative Note Date & Type Note Facility Hospital course Narrative No data available for this section [facility] Hospital Discharge instructions Note Date & Type Note Facility Hospital Discharge instructions No data available for this section [facility] Progress note Note Date & Type Note Facility Progress note No data available for this section [facility] Summary Purpose Family History No Family History Records Found Advance Directives No Advanced Directives Records Found Additional Source Comments Care Team (unrecognized sect ion and content) Care Team Personnel Name: ANGLE SALINAS APRN, CNP Position: P4 Advanced Practice Nurse Member Role: Primary Care Physician Address: Address: [address] [place] [address] Care Team Related Persons Name: DILEEP ESPARZA Address: Home [address] [place], [place] [id number] [place] Address: [address] [id number] Care Team Personnel Name: ANGLE SALINAS CHUTE FEEDER - PROJECT CREW WORKER Position: P4 Advanced Practice Nurse Member Role: Primary Care Physician Address: Address: [address] [place] [address] Care Team Related Persons Name: VILMADILEEP GARCIA Address: Home [address] [place], [place] [id number] [place] Address: [facility] [address] [place], [place] [id number] INFORMATION SOURCE (unrecogn ized section and content) FOR RECORDS PERTAINING TO PATIENTS WHO ARE OR HAVE BEEN ENROLLED IN A CHEMICAL DEPENDENCY/SUBSTANCEABUSE PROGRAM, SOME INFORMATION MAY BE OMITTED. This clinical summary was aggregated from multiple sources. Caution should be exercised in using it in the provision of clinical care. This summary normalizes information from multiple sources, and as a consequence, information in this document may materially change the coding, format and clinical context of patient data. In addition, data may be omitted in some cases. CLINICAL DECISIONS SHOULD BE BASED ON THE PRIMARY CLINICAL RECORDS. [employer] provides no warranty or guarantee of the accuracy or completeness of information in this document.
[2023-10-04 10:06] LABS: Absolute Lymphocyte Count 2.79 X10^3/uL (0.83-4.51); Absolute Neutrophil Count 3.2 X10^3/uL (2.0-7.7); Basophil# 0.05 X10^3/uL; Basophil% 0.8 % (0-1); Eosinophil# 0.12 X10^3/uL; Eosinophils% 1.8 % (0-5); Hematocrit 38.2 % (37-47); Hemoglobin 12.4 g/dL (12.0-15.0); Lymphocyte # 2.79 X10^3/ul (0.83-4.51); Lymphocyte % 42.3 % (19-41); Mean Corp Hgb Conc 32.5 g/dL (32-36); Mean Corpuscular Hgb 28.8 pg (27.0-32.0); Mean Corpuscular Volume 88.8 fL (81-99); Mean Platelet Vol. 9.1 fl (6.2-12.0); Monocyte# 0.43 X10^3/uL; Monocyte% 6.5 % (0-10); NRBC Flagged by Analyzer 0 % (0-5); Neutrophil # 3.19 X10^3/uL (2.7-7.7); Neutrophil % 48.3 % (47-70); Platelet Count 254 K/mm3 (150-450); RBC Distribution Width SD 45.2 fl (35.1-43.9); RET-HE 31.4 pg (30-35); Reticulocyte Count 1.15 % (0.5-1.5); White Blood Count 6.6 K/mm3 (4.4-11.0)
[2023-10-04 10:13] LABS: Erythrocyte Sedimentation Rate 14 mm/hr (0-30)
[2023-10-04 10:43] LABS: Vitamin D,25 Hydroxy 36.9 ng/mL
[2023-10-04 10:53] LABS: ALB/GLOB Ratio 1.1 RATIO (0.9-2.4); AST(SGOT) 17 U/L (15-37); Alanine Aminotransfer ALT/SGPT 27 U/L (13-56); Albumin, Serum 3.8 g/dL (3.2-5.0); Alkaline Phosphatase 56 U/L (45-117); Anion Gap 6 (5-15); BUN 16 mg/dL (7-18); BUN/Creat Ratio 28.5 RATIO (10-20); CRP < 2.90 mg/L (0.0-3.0); Chloride 109 mmol/L (98-107); Creatinine, Serum 0.56 mg/dL (0.55-1.02); EST Glomerular Filtration Rate 119 mL/min (>60); Est Glom Filt Rate - Afr Amer 144 mL/min (>60); Ferritin 53 ng/mL (8-252); Globulin 3.6 g/dL (2.2-4.2); Glucose 95 mg/dL (74-106); Iron 113 ug/dL (50-170); Iron Binding Capacity,Total 323 ug/dL (250-450); LDH 200 U/L (84-246); Potassium 3.4 mmol/L (3.5-5.1); Protein, Total 7.4 g/dL (6.4-8.2); Sodium Level 143 mmol/L (136-145)
[2023-10-08 15:08] LABS: ACCA 26 units (0-90); AMCA 24 units (0-100); Immunofixation Urine Comment: (.); gASCA 13 units (0-50)
[2023-10-10 00:06] LABS: Albumin 4.4 g/dL (2.9-4.4); Alpha-1-Globulins 0.3 g/dL (0.0-0.4); Alpha-2-Globulins 0.7 g/dL (0.4-1.0); Anti-Centromere B Ab <0.2 AI (0.0-0.9); Anti-Chromatin <0.2 AI (0.0-0.9); Anti-Jo <0.2 AI (0.0-0.9); Anti-dsDNA Ab <1 IU/mL (0-9); Beef <0.10 kU/L (Class 0); Chocolate <0.10 kU/L (Class 0); Codfish <0.10 kU/L (Class 0); Corn <0.10 kU/L (Class 0); Cytoplasmic Ab (C-ANCA) <1:20 titer (Neg:<1:20); Egg, Whole <0.10 kU/L (Class 0); Endomysial Antibody IgA Negative (Negative); Gamma Globulin 0.8 g/dL (0.4-1.8); Haptoglobin 153 mg/dL (33-346); Immunoglobulin A 201 mg/dL (87-352); Immunoglobulin E 14 IU/mL (6-495); Immunoglobulin G 881 mg/dL (586-1602); Immunoglobulin M 132 mg/dL (26-217); Milk (Cow) <0.10 kU/L (Class 0); Mussels <0.10 kU/L (Class 0); Peanut <0.10 kU/L (Class 0); Perinuclear Ab (P-ANCA) <1:20 titer (Neg:<1:20); Pork <0.10 kU/L (Class 0); RNP Ab <0.2 AI (0.0-0.9); SJOGREN'S Anti-SS-A test < 0.2 AI (0.0-0.9); SJOGREN'S Anti-SS-B test < 0.2 AI (0.0-0.9); Salmon <0.10 kU/L (Class 0); Shrimp <0.10 kU/L (Class 0); Smith Ab <0.2 AI (0.0-0.9); Soybean <0.10 kU/L (Class 0); Tuna <0.10 kU/L (Class 0); Wheat <0.10 kU/L (Class 0); t-Transglutaminase IgA <2 U/mL (0-3)
[2023-11-20 12:45] LABS: ALCA 18 units (0-60)
== END | disposition home or self-care (01) ==
PROVIDERS: Internal Medicine Gastroenterology; PCP Nurse Practitioner Family; Referring Provider Nurse Practitioner Family; Visit Provider Nurse Practitioner Family
DX: K52.9 Noninfective gastroenteritis and colitis, unspecified (principal); D50.9 Iron deficiency anemia, unspecified; E87.6 Hypokalemia; E55.9 Vitamin D deficiency, unspecified
CPT/HCPCS: 36415; 80053; 82306; 82728; 82784; 82785; 83010; 83516; 83540; 83550; 83615; 84165; 85025; 85045; 85652; 86003; 86005; 86036; 86140; 86225; 86235; 86255; 86256; 86334; 86335; 86480; 86671

== ENCOUNTER → 2023-10-07 | Outpatient (CLI) | payer OTHER, SELFPAY ==
--- OUTSIDE RECORDS SUMMARY | 2023-10-07 10:16 | XMS RPT_ITS | CCD ---
Author Name Unknown Address [address] [place] [address] Organization [facility] Care Team Providers Care Tool Polishing Machine Operator Name Role Phone ANGLE PERRIN APRN, CNP Primary Care Phys ician SUE SCHMIDT Attending Unavailable ANGLE SALINAS CNP Primary Care Unavaila ble SUE SCHMIDT Attending Unavailable ANGLE SALINAS CNP Primary Care Unavaila ble Allergies Allergy Classification Reported Allergen(s) Allergy Type Date of Onset Reaction(s) Facility (2 sources) Sulfamethoxazole / Trimethoprim; Translations: [sulfamethoxazole-tr imethoprim] Drug Allergy Swelling (morphologic abnormality) [facility] [place] Medications Current Medications Medication Drug Class(es) Dates Sig (Normalized) Sig (Original) fluconazole 150 mg oral tablet (1 source) Azole Antifungal Start: 08-10-2022 End: 08-11-2022 fluconazole 150 mg oral tablet Dose : 150 mg = 1 tab(s), Oral, qDay, To take 3 days after initial dose, # 1 tab(s), 0 Refill(s), 08/11/22 6:22:00 EST, Pharmacy: [facility]/pharmacy #[id number], Vaginal jessie, 165.1, cm, 08/07/22 15:11:00 EST, [...] Provider Facility Start: 08-10-2022 End: 08-11-2022 [facility] Start: 08-10-2022 End: 08-10-2022 Patient encounter procedure SUE BRAYAN SIENE MAKER-RELATIONSHIP ADVISOR [facility] Start: 08-07-2022 End: 08-12-2022 ambulatory [facility] Facility:B Start: 08-07-2022 End: 08-11-2022 Outreach Lab SUE SCHMIDT SIENE MAKER-RELATIONSHIP ADVISOR [facility] Payers Date Payer Category Payer Private Health Insurance [id number] 1970 Unknown [id number] [id number] [id number] 1970 Unknown [id number] Social History Date Type Detail Facility Start: 07-11-2021 Tobacco smoking status Light t obacco smoker (finding) [facility] Sex Assigned At Sex [facility] Evaluation + Plan note 08-10-2022 Note Date & Type Note Facility 08-10-2022 Evaluation + Plan note Diagnostic Tests PendingN. gonorrhoeae PCR 08/10/22Chlamydia trachomatis PCR 08/10/22 [facility] Clinical Note 08-10-2022 Note Date [...] Locations *1: This test was performed at: [address], [address] [place] [address] ([place]) Clinical Note 08-09-2022 Note Date & Type [...] Locations *1: This test was performed at: [address], [address] [place] [address] ([place]) Hospital course Narrative Note Date & Type Note Facility Hospital course Narrative No data available for this section [facility] Hospital Discharge instructions Note Date & Type Note Facility Hospital Discharge instructions No data available for this section [facility] Progress note Note Date & Type Note Facility Progress note No data available for this section [facility] Summary Purpose Family History No Family History Records Found Advance Directives No Advanced Directives Records Found Additional Source Comments Care Team (unrecognized sect ion and content) Care Team Personnel Name: ANGLE SALINAS APRN, CNP Position: P4 Advanced Practice Nurse Member Role: Primary Care Physician Address: Address: [address] [place] [address] Care Team Related Persons Name: DILEEP ESPARZA Address: Home [address] [place], [place] [id number] [place] Address: [address] [id number] Care Team Personnel Name: ANGLE SALINAS SIENE MAKER - RELATIONSHIP ADVISOR Position: P4 Advanced Practice Nurse Member Role: Primary Care Physician Address: Address: [address] [place] [address] Care Team Related Persons Name: VILMADILEEP GARCIA Address: Home [address] [place], [place] [id number] [place] Address: [facility] [address] [place], [place] [phone] INFORMATION SOURCE (unrecogn ized section and content) [...] BE BASED ON THE PRIMARY CLINICAL RECORDS. [employer] provides no warranty or guarantee of the accuracy or completeness of information in this document.
[2023-10-11 00:07] LABS: Calprotectin, Stool 26 ug/g (0-120)
== END | disposition home or self-care (01) ==
PROVIDERS: PCP Nurse Practitioner Family; Referring Provider Internal Medicine Gastroenterology; Visit Provider Internal Medicine Gastroenterology
DX: K52.9 Noninfective gastroenteritis and colitis, unspecified (principal)
CPT/HCPCS: 83630; 83993; 87493

== ENCOUNTER 2023-10-18 10:07 | Outpatient (CLI) | payer OTHER, SELFPAY ==
--- OUTSIDE RECORDS SUMMARY | 2023-10-18 10:46 | XMS RPT_ITS | CCD ---
Author Name Unknown Address [address] [place] [address] Organization [facility] Care Team Providers Care Steel Pan Form Placing Supervisor Name Role Phone ANGLE PERRIN APRN, CNP Primary Care Phys ician SUE SCHMIDT Attending Unavailable ANGLE SALINAS CNP Primary Care Unavaila ble SUE SCHMIDT Attending Unavailable ANGLE SALINAS CNP Primary Care Unavaila ble Allergies Allergy Classification Reported Allergen(s) Allergy Type Date of Onset Reaction(s) Facility (2 sources) Sulfamethoxazole / Trimethoprim; Translations: [sulfamethoxazole-tr imethoprim] Drug Allergy Swelling (morphologic abnormality) [facility] [place] Medications Current Medications Medication Drug Class(es) Dates Sig (Normalized) Sig (Original) fluconazole 150 mg oral tablet (1 source) Azole Antifungal Start: 08-10-2022 End: 08-11-2022 fluconazole 150 mg oral tablet Dose : 150 mg = 1 tab(s), Oral, qDay, To take 3 days after initial dose, # 1 tab(s), 0 Refill(s), 08/11/22 6:22:00 EST, Pharmacy: [facility]/pharmacy #[id number], Vaginal jessie, 165.1, cm, 08/07/22 15:11:00 EST, [...] Provider Facility Start: 08-10-2022 End: 08-11-2022 [facility] Start: 08-10-2022 End: 08-10-2022 Patient encounter procedure SUE BRAYAN FOREMAN/PROJECT MANAGER-HEAD OF ADVERTISING [facility] Start: 08-07-2022 End: 08-12-2022 ambulatory [facility] Facility:B Start: 08-07-2022 End: 08-11-2022 Outreach Lab SUE SCHMIDT FOREMAN/PROJECT MANAGER-HEAD OF ADVERTISING [facility] Payers Date Payer Category Payer Private Health Insurance [id number] 1970 Unknown [id number] [id number] [id number] 1970 Unknown [id number] Social History Date Type Detail Facility Start: 07-11-2021 Tobacco smoking status Light t obacco smoker (finding) [facility] Sex Assigned At Sex [facility] Evaluation + Plan note 08-10-2022 Note Date & Type Note Facility 08-10-2022 Evaluation + Plan note Diagnostic Tests PendingN. gonorrhoeae PCR 08/10/22Chlamydia trachomatis PCR 08/10/22 [facility] Clinical Note 08-10-2022 Note Date & Type [...] Locations *1: This test was performed at: [address], [address] [place] [address] ([place]) Clinical Note 08-09-2022 Note Date & Type [...] Locations *1: This test was performed at: [address], [address] [place] [address] ([place]) Hospital course Narrative Note Date & Type Note Facility Hospital course Narrative No data available for this section [facility] Hospital Discharge instructions Note Date & Type Note Facility Hospital Discharge instructions No data available for this section [facility] Progress note Note Date & Type Note Facility Progress note No data available for this section [facility] Summary Purpose Family History No Family History Records Found Advance Directives No Advanced Directives Records Found Additional Source Comments Care Team (unrecognized sect ion and content) Care Team Personnel Name: ANGLE SALINAS APRN, CNP Position: P4 Advanced Practice Nurse Member Role: Primary Care Physician Address: Address: [address] [place] [address] Care Team Related Persons Name: DILEEP ESPARZA Address: Home [address], [place] [id number] [place] Address: [address] [id number] Care Team Personnel Name: ANGLE SALINAS FOREMAN/PROJECT MANAGER - HEAD OF ADVERTISING Position: P4 Advanced Practice Nurse Member Role: Primary Care Physician Address: Address: [address] [place] [address] Care Team Related Persons Name: VILMADILEEP GARCIA Address: Home [address] [place], [place] [phone] [place] Address: [facility] [address] [place], [place] [phone] INFORMATION SOURCE (unrecogn ized section and content) [...] BE BASED ON THE PRIMARY CLINICAL RECORDS. [employer] provides no warranty or guarantee of the accuracy or completeness of information in this document.
[2023-10-23 00:07] LABS: QNTFERON TB Mitogen Value > 10.00 IU/mL (.); QNTFERON TB1+ Ag Value 0.62 IU/mL (.); QNTIFERON TB Positive Criteria Positive (Negative)
== END 2023-10-18 23:59 | disposition home or self-care (01) ==
PROVIDERS: PCP Nurse Practitioner Family; Referring Provider Internal Medicine Gastroenterology; Visit Provider Internal Medicine Gastroenterology
DX: K52.9 Noninfective gastroenteritis and colitis, unspecified (principal); D84.9 Immunodeficiency, unspecified; Z92.25 Personal history of immunosuppression therapy
CPT/HCPCS: 86480

== ENCOUNTER → 2023-11-04 | Outpatient (CLI) | payer OTHER, SELFPAY ==
--- NOTE | 2023-11-04 11:02 | RAD_ITS ---
STUDY: X-RAY CHEST REASON FOR EXAM: Female, 53 years old. Tb + TECHNIQUE: Single AP portable view of the chest. COMPARISON: None. FINDINGS: The lungs are clear and expanded. Scattered calcified granulomas. There is no demonstrated pleural abnormality. Normal size heart. Normal mediastinum and richa. Normal visualized pulmonary arteries. Normal visualized aortic arch and descending thoracic aorta. There is a levoscoliosis of the thoracic spine. Normal visualized ribs, clavicles, and shoulders. There is no demonstrated abnormality of the visualized soft tissue structures of the upper abdomen. RAD/Chest 1 View IMPRESSION: Scattered calcified lung granulomas. Electronically Signed: Ted Membreno MD at 14:27 EDT ,
--- OUTSIDE RECORDS SUMMARY | 2023-11-04 11:40 | XMS RPT_ITS | CCD ---
Author Name Unknown Address [address] [place] [address] Organization [facility] Care Team Providers Care Motorcycle Service Technician Name Role Phone ANGLE PERRIN APRN, CNP Primary Care Phys ician SUE SCHMIDT Attending Unavailable ANGLE SALINAS CNP Primary Care Unavaila ble SUE SCHMIDT Attending Unavailable ANGLE SALINAS CNP Primary Care Unavaila ble Allergies Allergy Classification Reported Allergen(s) Allergy Type Date of Onset Reaction(s) Facility (2 sources) Sulfamethoxazole / Trimethoprim; Translations: [sulfamethoxazole-tr imethoprim] Drug Allergy Swelling (morphologic abnormality) [facility] [place] Medications Current Medications Medication Drug Class(es) Dates Sig (Normalized) Sig (Original) fluconazole 150 mg oral tablet (1 source) Azole Antifungal Start: 08-10-2022 End: 08-11-2022 fluconazole 150 mg oral tablet Dose : 150 mg = 1 tab(s), Oral, qDay, To take 3 days after initial dose, # 1 tab(s), 0 Refill(s), 08/11/22 6:22:00 EST, Pharmacy: [facility]/pharmacy #[id number], Vaginal jessie, 165.1, cm, 08/07/22 15:11:00 EST, [...] Provider Facility Start: 08-10-2022 End: 08-11-2022 ambulatory [facility] Facility:B Start: 08-10-2022 End: 08-10-2022 Patient encounter procedure SUE BRAYAN NERVE SPECIALIST-PROCESS CHECKER [facility] Start: 08-07-2022 End: 08-12-2022 ambulatory [facility] Facility:B Start: 08-07-2022 End: 08-11-2022 Outreach Lab SUE SCHMIDT NERVE SPECIALIST-PROCESS CHECKER [facility] Payers Date Payer Category Payer Private Health Insurance [id number] 1970 Unknown [id number] [id number] [id number] 1970 Unknown [id number] Social History Date Type Detail Facility Start: 07-11-2021 Tobacco smoking status Light t obacco smoker (finding) [facility] Sex Assigned At Sex [facility] Evaluation + Plan note 08-10-2022 Note Date & Type Note Facility 08-10-2022 Evaluation + Plan note Diagnostic Tests PendingN. gonorrhoeae PCR 08/10/22Chlamydia trachomatis PCR 08/10/22 [facility] Clinical Note 08-10-2022 Note Date & Type [...] Locations *1: This test was performed at: [address], [address] [place] [address] ([place]) Clinical Note 08-09-2022 Note Date & Type [...] Locations *1: This test was performed at: [address], [address] [place] [address] ([place]) Hospital course Narrative Note Date & Type Note Facility Hospital course Narrative No data available for this section [facility] Discharge instructions Note Date & Type Note Facility Hospital Discharge instructions No data available for this section [facility] Progress note Note Date & Type Note Facility Progress note No data available for this section [facility] Summary Purpose Family History No Family History Records Found Advance Directives No Advanced Directives Records Found Additional Source Comments Care Team (unrecognized sect ion and content) Care Team Personnel Name: ANGLE SALINAS APRN, CNP Position: P4 Advanced Practice Nurse Member Role: Primary Care Physician Address: Address: [address] [place] [address] Care Team Related Persons Name: DILEEP ESPARZA Address: Home [address] [place], [place] [id number] [place] Address: [address] [phone] Care Team Personnel Name: ANGLE SALINAS NERVE SPECIALIST - PROCESS CHECKER Position: P4 Advanced Practice Nurse Member Role: Primary Care Physician Address: Address: [address] [place] [address] Care Team Related Persons Name: VILMADILEEP GARCIA Address: Home [address] [place], [place] [phone] [place] Address: [facility] [address] [place], [place] [phone] INFORMATION SOURCE (unrecogn ized section and content) [...] BE BASED ON THE PRIMARY CLINICAL RECORDS. [employer] provides no warranty or guarantee of the accuracy or completeness of information in this document.
== END | disposition home or self-care (01) ==
PROVIDERS: PCP Nurse Practitioner Family; Referring Provider Internal Medicine Gastroenterology; Visit Provider Internal Medicine Gastroenterology
DX: K52.9 Noninfective gastroenteritis and colitis, unspecified (principal)
CPT/HCPCS: 71045

== ENCOUNTER → 2023-11-11 | Outpatient (CLI) | payer OTHER, SELFPAY ==
--- NOTE | 2023-11-11 07:53 | BI_ITS ---
MAMMOGRAPHY - BILATERAL SCREENING REASON FOR EXAM: Female, 53 years old. Routine annual screening examination. PERTINENT HISTORY: Mother with breast cancer. TECHNIQUE: Digital bilateral breast melissa (3D mammographic acquisition) in the CC and MLO projections. 2-D mediolateral oblique (MLO) and craniocaudad (CC) views of both breasts were obtained. CAD: Full Field Digital Mammography with Computer Added Detection was performed. COMPARISON: Comparison is made with prior study dated February 02, 2022 and 2018. FINDINGS: Breast Composition: The breasts are heterogeneously dense, which may obscure small masses. There are no dominant masses or suspicious calcifications. No other significant abnormalities are identified. There has been no significant change since the prior study. BI/SCRN MAMM (CAD)W/MELISSA BILAT IMPRESSION: Stable bilateral screening mammogram. Yearly follow-up mammogram recommended. (A) ASSESSMENT CATEGORY: BIRADS Category 1: Negative. A letter regarding these results will be sent to the patient by the facility within 30 days. Approximately 10% of breast cancers are not detected by mammography. A normal mammogram should not delay biopsy of a clinically suspicious abnormality. [id number] Electronically Signed: Ted Membreno MD at 9:03 EDT ,
== END | disposition home or self-care (01) ==
LOC: OPBI 07:52
PROVIDERS: PCP Nurse Practitioner Family; Referring Provider Nurse Practitioner Family; Visit Provider Nurse Practitioner Family
DX: Z12.31 Encounter for screening mammogram for malignant neoplasm of breast (principal); Z80.3 Family history of malignant neoplasm of breast
CPT/HCPCS: 77063; 77067

== ENCOUNTER → 2024-01-06 | Outpatient (CLI) | payer OTHER, SELFPAY ==
[2024-01-06 10:59] LABS: Bacteria 0 SEEN /hpf (None Seen); Mucous, Urine 0 SEEN /hpf (<or=2+); Red Blood Cells-Urine 0 SEEN /hpf (0-5); Squamous Epithelial Cells - UA 0 SEEN /hpf (5-10); White Blood Cells 0 SEEN /hpf (0-5)
[2024-01-06 11:06] LABS: Color, Urine Yellow (Yellow); Glucose, Dipstick Normal (Normal); Ketone-Dipstick Negative (Negative); Leukocyte Esterase-Dipstick Negative /ul (Negative); Nitrite-Dipstick Negative (Negative); Occult Blood-Urine Negative /ul (Negative); Protein-Dipstick Negative (Negative); Urine Bilirubin Dipstick Negative (Negative); Urine Clarity Clear (Clear); Urine Urobilinogen Normal (Normal)
== END | disposition home or self-care (01) ==
LOC: LABSPEC 10:21
PROVIDERS: PCP Nurse Practitioner Family; Referring Provider Nurse Practitioner Family; Visit Provider Nurse Practitioner Family
DX: R30.0 Dysuria (principal)
CPT/HCPCS: 81001; 87086

== ENCOUNTER → 2024-12-21 | Outpatient (CLI) | payer OTHER, SELFPAY ==
--- NOTE | 2024-12-21 07:19 | BI_ITS ---
EXAM: SCRN MAMM (CAD)W/MELISSA BILAT DATE: 12/21/2024 CLINICAL HISTORY: F, Age 54 y/o , SCREENING BREAST CANCER RISK ASSESSMENT: Has not been calculated. TECHNIQUE: Bilateral screening digital breast tomosynthesis with 2D and 3D images. Computer aided detection. COMPARISON: Prior exam(s) dated 11/11/2023 and 02/02/2022. FINDINGS: TISSUE DENSITY: The breast tissue is heterogenously dense, which may obscure small masses. Bilateral Breast Mammographic Findings: No suspicious masses, suspicious cluster of microcalcifications, architectural distortion or secondary sign of malignancy is identified in either breast. Benign vascular calcifications and round calcifications are seen in both breast. Stable nodular masslike densities are seen in both breasts. BI/SCRN MAMM (CAD)W/MELISSA BILAT IMPRESSION: OVERALL FINAL ASSESSMENT: BIRADS 2 BENIGN FINDING RECOMMENDATION: Routine annual follow-up in 1 Year A letter with findings and recommendations will be mailed to the patient. Reading Location: [id number]
== END | disposition home or self-care (01) ==
LOC: OPBI 07:18
PROVIDERS: PCP Nurse Practitioner Family; Referring Provider Nurse Practitioner Family; Visit Provider Nurse Practitioner Family
DX: Z12.31 Encounter for screening mammogram for malignant neoplasm of breast (principal)
CPT/HCPCS: 77063; 77067

== ENCOUNTER → 2025-02-11 | Outpatient (CLI) | payer OTHER, SELFPAY ==
[2025-02-11 12:33] LABS: Erythrocyte Sedimentation Rate 9 mm/hr (0-30)
[2025-02-11 12:35] LABS: Absolute Neutrophil Count 5.4 X10^3/uL (2.0-7.7); Basophil# 0.04 X10^3/uL; Basophil% 0.5 % (0-1); Eosinophil# 0.14 X10^3/uL; Eosinophils% 1.7 % (0-5); Hemoglobin 12.1 g/dL (12.0-15.0); Lymphocyte % 27.5 % (19-41); Mean Corp Hgb Conc 33.6 g/dL (32-36); Mean Corpuscular Hgb 29.2 pg (27.0-32.0); Mean Platelet Vol. 10.2 fl (6.2-12.0); NRBC Flagged by Analyzer 0 % (0-5); Neutrophil # 5.36 X10^3/uL (2.7-7.7); Neutrophil % 63.9 % (47-70); Platelet Count 214 K/mm3 (150-450); RBC Distribution Width CV 12.5 % (11.6-14.6); Red Blood Count 4.14 M/mm3 (4.2-5.4); White Blood Count 8.4 K/mm3 (4.4-11.0)
[2025-02-11 13:17] LABS: ALB/GLOB Ratio 1.6 RATIO (0.9-2.4); AST(SGOT) 19 U/L (<=31); Alanine Aminotransfer ALT/SGPT 14 U/L (<=34); Albumin, Serum 4.3 g/dL (3.5-5.0); Alkaline Phosphatase 56 U/L (35-104); Anion Gap 13 (5-15); BUN 14 mg/dL (4-19); BUN/Creat Ratio 22.8 RATIO (10-20); Calcium,Total 9.1 mg/dL (7.6-11.0); Carbon Dioxide 21.2 mmol/L (21.0-32.0); Chloride 105 mmol/L (98-108); Creatinine, Serum 0.62 mg/dL (0.70-1.20); EST Glomerular Filtration Rate 105 (>60); Globulin 2.7 g/dL (2.2-4.2); Glucose 95 mg/dL (70-99); Potassium 3.7 mmol/L (3.3-5.1); Sodium Level 139 mmol/L (133-145); Total Bilirubin 0.36 mg/dL (0.00-1.30)
[2025-02-11 13:25] LABS: Rheumatoid Factor < 10.0 IU/mL (<15)
[2025-02-11 14:10] LABS: Vitamin D,25 Hydroxy 35.1 ng/mL (30-100)
[2025-02-15 09:08] LABS: Anti-Nuclear Antibody Test Negative (.)
[2025-02-15 19:08] LABS: C1 EST Inhibitor, Functional >105 (.); Thyroid Peroxidase AB < 9 IU/mL (0-34)
== END | disposition home or self-care (01) ==
LOC: MTLAB 10:15
PROVIDERS: PCP Nurse Practitioner Family; Referring Provider Nurse Practitioner; Visit Provider Nurse Practitioner
DX: T78.3XXD Angioneurotic edema, subsequent encounter (principal); E55.9 Vitamin D deficiency, unspecified; E07.9 Disorder of thyroid, unspecified; X58.XXXD Exposure to other specified factors, subsequent encounter
CPT/HCPCS: 36415; 80053; 82306; 83520; 84443; 85025; 85652; 86038; 86160; 86161; 86376; 86431